=== PATIENT | male | born 1960 | race Caucasian/White ===

== ENCOUNTER 2016-10-04 21:58 | Emergency (ER) | payer BC, MEDICARE ==
[2016-10-04 22:53] VITALS: BP 143/90
[2016-10-04] MEDS ORDERED: Proparacaine 0.5% Ophth Soln 15 ML Bottle EYERT SCH (23:30)
--- NOTE | 2016-10-04 23:39 | EDM.PDOC ---
[id number] SOMEHTING IN EYE Time Seen by Provider: 10/04/16 23:10 Source of Information: Reports: Patient History Limitations: Reports: No Limitations - History of Present Illness INITIAL COMMENTS - FREE TEXT/NARRATIVE: 56-year-old male feels like there is something in his right eye for the last 2 days. He has marked conjunctival erythema and watering of the eye. He was helping pick choke cherries in the trees when he thinks something may have went into his eye. Onset: Gradual (Over the past 2 days) Location: Reports: Other (Right eye) Quality: Reports: Sharp Severity: Moderate Associated Symptoms: Reports: No Other Symptoms Right Eye Pain Score (Numeric/FACES): 6 - Related Data Allergies Allergy/AdvReac Type Severity Reaction Status Date / Time Sulfa (Sulfonamide Allergy Intermediate Swollen Verified 10/04/16 22:52 Antibiotics) Eyes Home Meds: Home Meds Gabapentin 300 mg PO DAILY 11/09/12 [History] Lisinopril 20 mg PO BID 11/09/12 [History] Metoprolol Tartrate 100 mg PO BID 11/09/12 [History] Omeprazole 20 mg PO DAILY 11/09/12 [History] PARoxetine [Paxil] 10 mg PO DAILY 11/09/12 [History] Simvastatin 20 mg PO BEDTIME 11/09/12 [History] Levothyroxine [Synthroid] 50 mcg PO ACBRK 02/22/13 [History] metFORMIN [Glucophage] 1,000 mg PO TIDAC #0 02/25/13 [Rx] Doxazosin [Doxazosin Mesylate] 4 mg PO DAILY 07/26/13 [History] Albuterol [Proventil HFA] 2 inhaler INH Q3H PRN #6.7 gram 11/12/15 [Rx] Hydrochlorothiazide 25 mg PO ASDIRECTED PRN 11/12/15 [History] SUMAtriptan Succinate [Sumatriptan Succinate] 100 mg PO ASDIRECTED PRN 11/12/15 [History] atorvaSTATin [Lipitor] 40 mg PO BEDTIME 11/12/15 [History] glipiZIDE [Glipizide] 5 mg PO DAILY 11/12/15 [History] Fluticasone Propionate [Flovent HFA 110 MCG] 2 puff INH BID PRN 01/02/16 [ History] Past Medical History HEENT History: Reports: Impaired Vision, Sinusitis Cardiovascular History: Reports: CAD, High Cholesterol, Hypertension, [place] Respiratory History: Reports: Asthma, Other (See Below) Other Respiratory History: pneumonia Gastrointestinal History: Reports: Cholelithiasis, GERD, Pancreatitis Musculoskeletal History: Reports: Arthritis, Back Pain, Chronic, Fracture, Other (See Below) Other Musculoskeletal History: Nerve damage to back Neurological History: Reports: CVA, Neuropathy, Diabetic Psychiatric History: Reports: Depression Endocrine/Metabolic History: Reports: Diabetes, Type II, Hypothyroidism - Infectious Disease History Infectious Disease History: Reports: Chicken Pox - Past Surgical History GI Surgical History: Reports: Appendectomy, Cholecystectomy, Colonoscopy, Hernia Repair/Other Male Surgical History: Reports: Circumcision Musculoskeletal Surgical History: Reports: Other (See Below) Social & Family History - Family History Cardiac: Reports: Hypertension : Reports: Renal Disease/Insufficiency Psychiatric: Reports: Depression Endocrine/Metabolic: Reports: Diabetes, type II Oncologic: Reports: Lung, Other (See Below) Other Oncologic Family History: Throat cancer - Tobacco Use Smoking Status *Q: Current Every Day Smoker Years of Tobacco use: 36 Packs/Tins Daily: 0.5 Used Tobacco, but Quit: No Month Tobacco Last Used: 02/15/2013 Second Hand Smoke Exposure: Yes - Caffeine Use Caffeine Use: Reports: Coffee - Alcohol Use Days Per Week of Alcohol Use: 0 - Recreational Drug Use Recreational Drug Use: No Drug Use in Last 12 Months: No ED ROS GENERAL - Review of Systems Review Of Systems: See Below Constitutional: Denies: Fever, Chills HEENT: Reports: Eye Pain Respiratory: Denies: Shortness of Breath Cardiovascular: Denies: Chest Pain GI/Abdominal: Denies: Abdominal Pain, Nausea, Vomiting Skin: Reports: No Symptoms Neurological: Reports: No Symptoms ED EXAM GENERAL W FULL EYE - Physical Exam Exam: See Below Exam Limited By: No Limitations General Appearance: Alert, Mild Distress (Looks fairly uncomfortable) Eye Exam: Right Eye: Conjunctival Injection, PERRL, Other (Watery discharge) Eyelids: Right: Edema, Erythema, Lid Everted for Exam Conjunctiva & Sclera: Right: Conjunctival Edema, Scleral Icterus Cornea Exam: Right: Corneal Ulcer (Very small abrasion or ulceration at 6:00 just under the pupil) Respiratory/Chest: No Respiratory Distress Course - Vital Signs Last Recorded V/S: Last Vital Signs Temp 97.0 F 10/04/16 22:49 Pulse 77 10/04/16 22:49 Resp 18 10/04/16 22:49 BP 143/90 H 10/04/16 22:49 Pulse Ox 95 10/04/16 22:49 - Orders/Labs/Meds Meds: Medications Discontinued Medications Generic Name Dose Route Start Last Admin Trade Name Keisha PRN Reason Stop Dose Admin Gentamicin Sulfate 1 ml 10/05/16 00:00 10/05/16 00:05 Garamycin 0.3% Ophth Soln EYERT 10/05/16 00:01 1 drop ONETIME ONE Administration Proparacaine HCl 1 ml 10/04/16 23:30 Proparacaine 0.5% Ophth Soln EYERT STAT PREET - Re-Assessments/Exams Free Text/Narrative Re-Assessment/Exam: 10/04/16 23:36 After proparacaine anesthesia, the eye was examined with fluorescein staining. There was a small uptake at 6:00 just under the pupil that appeared to be a small abrasion or ulceration. Closer examination under slit lamp exam revealed no foreign body that could be found or other damage to the cornea. Lids were inverted and nothing was found. The patient was placed on gentamicin ophthalmic drops and I strongly encouraged him to recheck tomorrow with optometry as I would've expected to find more abnormal findings with the amount of symptoms he is having. A foreign body still may be present that needs to be removed. Departure - Departure Time of Disposition: 00:09 Disposition: Home, Self-Care 01 Condition: Good Clinical Impression: Corneal abrasion Qualifiers: Encounter type: initial encounter Laterality: right Qualified Code(s): S05.01XA - Injury of conjunctiva and corneal abrasion without foreign body, right eye, initial encounter - Discharge Information Instructions: Corneal Abrasion, [id number] Referrals: PCP,None [Primary Care Provider] - Forms: ED Department Discharge Care Plan Goals: 2 drops 3 times a day of the antibiotic, and recheck with optometry tomorrow if not improving for a formal eye exam.
[2016-10-05] MEDS ORDERED: Gentamicin 0.3% Ophth Soln 5 ML Bottle EYERT ONE
[2016-10-05] MEDS ORDERED: Gentamicin 0.3% Ophth Soln 5 ML Bottle EYERT SCH (09:00)
== END 2016-10-05 00:11 | disposition home or self-care (01) ==
LOC: JP.ED 21:58
DX: S05.01XA Injury of conjunctiva and corneal abrasion without foreign body, right eye, initial encounter (principal); I25.10 Atherosclerotic heart disease of native coronary artery without angina pectoris; I25.2 Old myocardial infarction; I10 Essential (primary) hypertension; E78.00 Pure hypercholesterolemia, unspecified; J45.909 Unspecified asthma, uncomplicated; K21.9 Gastro-esophageal reflux disease without esophagitis; M19.90 Unspecified osteoarthritis, unspecified site; E11.40 Type 2 diabetes mellitus with diabetic neuropathy, unspecified; E03.9 Hypothyroidism, unspecified; F17.210 Nicotine dependence, cigarettes, uncomplicated; Z90.49 Acquired absence of other specified parts of digestive tract; Z98.890 Other specified postprocedural states; Z79.84 Long term (current) use of oral hypoglycemic drugs; Z79.899 Other long term (current) drug therapy; Z88.2 Allergy status to sulfonamides; X58.XXXA Exposure to other specified factors, initial encounter
CPT/HCPCS: 99283; A9270; 65222

== ENCOUNTER 2016-11-12 09:57 | Emergency (ER) | payer BC, MEDICARE ==
[2016-11-12 10:09] VITALS: BP 151/101
--- NOTE | 2016-11-12 10:31 | EDM.PDOC ---
ED HPI GENERAL MEDICAL PROBLEM - General Chief Complaint: Diabetic Complaint Stated Complaint: HIGH BLOOD SUGARS Time Seen by Provider: 11/12/16 10:25 Source of Information: Reports: Patient History Limitations: Reports: No Limitations - History of Present Illness INITIAL COMMENTS - FREE TEXT/NARRATIVE: 56-year-old male is in the emergency room because his blood glucose levels have been over 200 for the past 2-3 days. He is on Januvia, metformin, and glipizide extended release and his blood glucose levels usually are in the mid 100 range. He has a cold, just finished a course of Zithromax 2 days ago. No fevers or chills. He is upset that he did not improve on the antibiotic. He is wondering if he needs insulin. No nausea or vomiting. Onset: Unknown/Unsure (At least 2-3 days of elevated blood glucose levels) Severity: Mild - Related Data Allergies Allergy/AdvReac Type Severity Reaction Status Date / Time Sulfa (Sulfonamide Allergy Intermediate Swollen Verified 11/12/16 10:09 Antibiotics) Eyes amoxicillin Allergy Fever Verified 11/12/16 10:09 Home Meds: Home Meds . [Unable to Verify Home Med List] 11/12/16 [History] Past Medical History HEENT History: Reports: Impaired Vision, Sinusitis Cardiovascular History: Reports: CAD, High Cholesterol, Hypertension, [place] Respiratory History: Reports: Asthma, Other (See Below) Other Respiratory History: pneumonia Gastrointestinal History: Reports: Cholelithiasis, GERD, Pancreatitis Musculoskeletal History: Reports: Arthritis, Back Pain, Chronic, Fracture, Other (See Below) Other Musculoskeletal History: Nerve damage to back Neurological History: Reports: CVA, Neuropathy, Diabetic Psychiatric History: Reports: Depression Endocrine/Metabolic History: Reports: Diabetes, Type II, Hypothyroidism - Infectious Disease History Infectious Disease History: Reports: Chicken Pox - Past Surgical History GI Surgical History: Reports: Appendectomy, Cholecystectomy, Colonoscopy, Hernia Repair/Other Male Surgical History: Reports: Circumcision Musculoskeletal Surgical History: Reports: Other (See Below) Social & Family History - Family History Cardiac: Reports: Hypertension : Reports: Renal Disease/Insufficiency Psychiatric: Reports: Depression Endocrine/Metabolic: Reports: Diabetes, type II Oncologic: Reports: Lung, Other (See Below) Other Oncologic Family History: Throat cancer - Tobacco Use Smoking Status *Q: Unknown Ever Smoked Years of Tobacco use: 36 Packs/Tins Daily: 0.5 Used Tobacco, but Quit: No Month Tobacco Last Used: 02/15/2013 Second Hand Smoke Exposure: Yes - Caffeine Use Caffeine Use: Reports: Coffee - Alcohol Use Days Per Week of Alcohol Use: 0 - Recreational Drug Use Recreational Drug Use: No Drug Use in Last 12 Months: No ED ROS GENERAL - Review of Systems Review Of Systems: See Below Constitutional: Reports: Fever (Had a fever for 1-2 days a week ago, that resolved) HEENT: Reports: Rhinitis. Denies: Throat Pain Respiratory: Reports: Shortness of Breath, Wheezing, Cough Cardiovascular: Denies: Chest Pain GI/Abdominal: Denies: Abdominal Pain, Nausea, Vomiting Skin: Denies: Rash Neurological: Denies: Headache Psychiatric: Reports: No Symptoms ED EXAM GENERAL NO PERIP PULSE - Physical Exam Exam: See Below Exam Limited By: No Limitations General Appearance: Alert, No Apparent Distress Throat/Mouth: Normal Inspection Head: Atraumatic Respiratory/Chest: No Respiratory Distress, Wheezing (Diffuse expiratory wheezes are heard) Cardiovascular: Regular Rate, Rhythm Neurological: Alert, Oriented Psychiatric: Normal Affect, Normal Mood Skin Exam: Warm, Dry Course - Vital Signs Last Recorded V/S: Last Vital Signs Temp 98.4 F 11/12/16 10:06 Pulse 107 H 11/12/16 10:06 Resp 15 11/12/16 10:06 BP 151/101 H 11/12/16 10:06 Pulse Ox 96 11/12/16 10:06 - Re-Assessments/Exams Free Text/Narrative Re-Assessment/Exam: 11/12/16 10:42 Reviewed the patient's medications, he is on 3 oral hypoglycemic medications. He is only taking one dose of metformin daily, I told him he can increase to 2 doses until his cold symptoms resolve and his blood sugars improve. I explained that his cold is likely viral and is the reason the Zithromax didn't work. I did give him a prescription for a new albuterol HFA inhaler. I asked him to call his regular physician early next week if his blood glucose levels aren't improving. Departure - Departure Time of Disposition: 10:55 Disposition: Home, Self-Care 01 Condition: Good Clinical Impression: Acute viral bronchitis, Hyperglycemia - Discharge Information Instructions: Acute Bronchitis Referrals: PCP,None [Primary Care Provider] - Forms: ED Department Discharge Care Plan Goals: Continue your regular medications but consider adding a second dose of metformin in the evening. Contact your regular provider early next week if her blood sugars have not improved. Use inhaler and cough suppressants as prescribed.
== END 2016-11-12 10:56 | disposition home or self-care (01) ==
LOC: JP.ED 09:57
DX: E11.65 Type 2 diabetes mellitus with hyperglycemia (principal); E11.40 Type 2 diabetes mellitus with diabetic neuropathy, unspecified; J20.8 Acute bronchitis due to other specified organisms; I25.10 Atherosclerotic heart disease of native coronary artery without angina pectoris; E78.00 Pure hypercholesterolemia, unspecified; I10 Essential (primary) hypertension; I25.2 Old myocardial infarction; J45.909 Unspecified asthma, uncomplicated; K21.9 Gastro-esophageal reflux disease without esophagitis; M19.90 Unspecified osteoarthritis, unspecified site; E03.9 Hypothyroidism, unspecified; Z86.73 Personal history of transient ischemic attack (TIA), and cerebral infarction without residual deficits; Z90.49 Acquired absence of other specified parts of digestive tract; Z98.890 Other specified postprocedural states; Z88.2 Allergy status to sulfonamides; Z88.1 Allergy status to other antibiotic agents
CPT/HCPCS: 99283

== ENCOUNTER 2017-04-21 19:50 | Emergency (ER) | payer BC, MEDICARE ==
[2017-04-21 20:44] VITALS: BP 145/94
[2017-04-21] MEDS ORDERED: Insulin Regular, Human 100 Units/ML 10 ML Vial SUBCUT ONE (21:10)
--- NOTE | 2017-04-21 21:51 | EDM.PDOC ---
ED HPI GENERAL MEDICAL PROBLEM - General Chief Complaint: Diabetic Complaint Stated Complaint: HIGH BLOOD SUGARS Time Seen by Provider: 04/21/17 20:10 Source of Information: Reports: Patient, Family () - History of Present Illness INITIAL COMMENTS - FREE TEXT/NARRATIVE: Hyperglycemia: This is a 57-year-old Mastisol presents emergency room with his and young son, reports started on insulin today by his primary care provider. He took 5 units this evening. He reports blood sugars of 361, 356, 364. He feels fatigued, blurry vision, mood changes. He denies chest pain, shortness of breath, fever, chills. He is here to be sure that his home glucose monitoring meter is working correctly. - Related Data Allergies Allergy/AdvReac Type Severity Reaction Status Date / Time Sulfa (Sulfonamide Allergy Intermediate Swollen Verified 04/21/17 20:30 Antibiotics) Eyes amoxicillin Allergy Fever Verified 04/21/17 20:30 Home Meds: Home Meds Albuterol [Ventolin HFA] 2 puff INH BID PRN 04/21/17 [History] Ciprofloxacin HCl [Cipro] 500 mg PO BID 04/21/17 [History] Cyclobenzaprine HCl [Cyclobenzaprine HCl] 5 mg PO TID PRN 04/21/17 [History] Fluticasone/Vilanterol [Breo Ellipta 100-25 MCG Inhalation Kit] 04/21/17 [ History] Insulin Isophane NPH, Human [NovoLIN N] 5 unit SUBCUT DAILY 04/21/17 [History] Levothyroxine [Synthroid] 50 mcg PO ACBREAKFAST 04/21/17 [History] Lisinopril [Lisinopril] 1 tab PO DAILY 04/21/17 [History] Metoprolol Succinate [Metoprolol Succinate] 1 tab PO DAILY 04/21/17 [History] Montelukast Sodium [Montelukast Sodium] 1 tab PO DAILY PRN 04/21/17 [History] Nortriptyline [Nortriptyline] 1 tab PO DAILY 04/21/17 [History] Omeprazole [Omeprazole] 1 tab PO DAILY 04/21/17 [History] Potassium Chloride [Potassium Chloride] 1 tab PO DAILY 04/21/17 [History] amLODIPine Besylate [Amlodipine Besylate] 1 tab PO DAILY 04/21/17 [History] atorvaSTATin Calcium [Atorvastatin Calcium] 1 tab PO BEDTIME 04/21/17 [History] metFORMIN HCl [Metformin HCl] 1,000 mg PO DAILY 04/21/17 [History] Past Medical History HEENT History: Reports: Impaired Vision, Sinusitis Cardiovascular History: Reports: CAD, High Cholesterol, Hypertension, [place] Respiratory History: Reports: Asthma, Other (See Below) Other Respiratory History: pneumonia Gastrointestinal History: Reports: Cholelithiasis, GERD, Pancreatitis Musculoskeletal History: Reports: Arthritis, Back Pain, Chronic, Fracture, Other (See Below) Other Musculoskeletal History: Nerve damage to back Neurological History: Reports: CVA, Neuropathy, Diabetic Psychiatric History: Reports: Depression Endocrine/Metabolic History: Reports: Diabetes, Type II, Hypothyroidism - Infectious Disease History Infectious Disease History: Reports: Chicken Pox - Past Surgical History GI Surgical History: Reports: Appendectomy, Cholecystectomy, Colonoscopy, Hernia Repair/Other Male Surgical History: Reports: Circumcision Musculoskeletal Surgical History: Reports: Other (See Below) Social & Family History - Family History Cardiac: Reports: Hypertension : Reports: Renal Disease/Insufficiency Psychiatric: Reports: Depression Endocrine/Metabolic: Reports: Diabetes, type II Oncologic: Reports: Lung, Other (See Below) Other Oncologic Family History: Throat cancer - Tobacco Use Smoking Status *Q: Current Every Day Smoker Years of Tobacco use: 35 Packs/Tins Daily: 0.7 Used Tobacco, but Quit: No Month Tobacco Last Used: 02/15/2013 Second Hand Smoke Exposure: Yes - Caffeine Use Caffeine Use: Reports: Coffee, Soda - Alcohol Use Days Per Week of Alcohol Use: 0 - Recreational Drug Use Recreational Drug Use: No Drug Use in Last 12 Months: No ED ROS GENERAL - Review of Systems Review Of Systems: See Below Constitutional: Reports: Malaise, Fatigue HEENT: Reports: Vision Change (Blurry vision with high glucose readings.) Respiratory: Reports: No Symptoms Cardiovascular: Reports: No Symptoms Endocrine: Reports: Fatigue, High Glucose GI/Abdominal: Reports: No Symptoms : Reports: No Symptoms Musculoskeletal: Reports: No Symptoms Skin: Reports: No Symptoms Neurological: Reports: No Symptoms Psychiatric: Reports: No Symptoms Hematologic/Lymphatic: Reports: No Symptoms Immunologic: Reports: No Symptoms ED EXAM GENERAL NO PERIP PULSE - Physical Exam Exam: See Below Exam Limited By: No Limitations General Appearance: Alert, WD/WN, No Apparent Distress Eye Exam: Bilateral Eye: EOMI, Normal Inspection, PERRL Ears: Normal External Exam, Normal Canal, Hearing Grossly Normal, Normal TMs Nose: Normal Inspection, Normal Mucosa, No Blood Throat/Mouth: Normal Inspection Head: Atraumatic, Normocephalic Neck: Normal Inspection, Supple, Non-Tender, Full Range of Motion Respiratory/Chest: No Respiratory Distress, Lungs Clear, Normal Breath Sounds, No Accessory Muscle Use, Chest Non-Tender Cardiovascular: Normal Peripheral Pulses, Regular Rate, Rhythm, No Edema, No Murmur, No Rub GI/Abdominal: Normal Bowel Sounds, Other (Large obese abdomen noted, nontender) (Male) Exam: Deferred Rectal (Males) Exam: Deferred Back Exam: Normal Inspection, Full Range of Motion Extremities: Normal Range of Motion, Non-Tender, No Pedal Edema, Normal Capillary Refill, Other (1 mm circular ulcer noted proximal to the left knee. Scant discharge noted mild erythema surrounding ulcer. Nontender) Neurological: Alert, Oriented, Normal Cognition, Normal Gait, Normal Reflexes, No Motor/Sensory Deficits Psychiatric: Normal Affect, Normal Mood Skin Exam: Warm, Dry, Other (Tiny 1 mm circular skin ulcer noted to the left lower leg.) Lymphatic: No Adenopathy Course - Vital Signs Last Recorded V/S: Last Vital Signs Temp 36.5 C 04/21/17 20:40 Pulse 77 04/21/17 20:40 Resp 18 04/21/17 20:44 BP 145/94 H 04/21/17 20:44 Pulse Ox 96 04/21/17 20:44 - Orders/Labs/Meds Orders: Active Orders 24 hr Category Date Time Status Blood Glucose Check, Bedside [RC] ONETIME Care 04/21/17 20:08 Active Labs: Laboratory Tests 04/21/17 04/21/17 Range/Units 20:10 20:10 WBC 19.3 H (4.5-11.0) K/uL RBC 5.09 (4.30-5.90) M/uL Hgb 16.3 H (12.0-15.0) g/dL Hct 46.3 (40.0-54.0) % MCV 91 (80-98) fL MCH 32 H (27-31) pg MCHC 35 (32-36) % Plt Count 269 (150-400) K/uL Neut % (Auto) 75 H (36-66) % Lymph % (Auto) 15 L (24-44) % Nance % (Auto) 9 H (2-6) % Eos % (Auto) 0 L (2-4) % Baso % (Auto) 0 (0-1) % Sodium 136 L (140-148) mmol/L Potassium 4.2 (3.6-5.2) mmol/L Chloride 99 L (100-108) mmol/L Carbon Dioxide 25 (21-32) mmol/L Anion Gap 16.2 H (5.0-14.0) mmol/L BUN 16 (7-18) mg/dL Creatinine 1.3 (0.8-1.3) mg/dL Est Cr Clr Drug Dosing 67.58 mL/min Estimated GFR (MDRD) 57 L (>60) Glucose 366 H (74-106) mg/dL Calcium 8.3 L (8.5-10.1) mg/dL Total Bilirubin 0.3 (0.2-1.0) mg/dL AST 13 L (15-37) U/L ALT 22 (12-78) U/L Alkaline Phosphatase 141 H (46-116) U/L Total Protein 7.3 (6.4-8.2) g/dL Albumin 3.8 (3.4-5.0) g/dL Globulin 3.5 (2.3-3.5) g/dL Albumin/Globulin Ratio 1.1 L (1.2-2.2) Meds: Medications Discontinued Medications Generic Name Dose Route Start Last Admin Trade Name Keisha PRN Reason Stop Dose Admin Insulin Human Regular 10 unit 04/21/17 21:10 04/21/17 21:55 Novolin R SUBCUT 04/21/17 21:11 10 unit ONETIME ONE Administration Protocol - Re-Assessments/Exams Free Text/Narrative Re-Assessment/Exam: 04/21/17 22:02 Labs were noted to have blood sugar 366, will give insulin regular 10 units subcut now. CBC does show elevated white count with no source of infection. Chemistries abnormal reports see full lab results Discussed IV fluids patient declines, he would like his lab reports and would like to follow-up with his primary care tomorrow Discussed increasing her long-acting insulin from 5 units to 10 units at bedtime Advised to follow-up with primary care with a phone call in morning to discuss further insulin management Departure - Departure Time of Disposition: 22:04 Disposition: Home, Self-Care 01 Condition: Good Clinical Impression: Hyperglycemia - Discharge Information Instructions: Hyperglycemia, [id number] Referrals: Kelly Reddy ORGANIZATIONAL PSYCHOLOGIST [Primary Care Provider] - Forms: ED Department Discharge Care Plan Goals: Hyperglycemia -Advised to increase long-acting insulin from 5 units to 10 units subcut at bedtime -Advised to monitor blood sugar in the morning and call primary care provider with results Advised to return to clinic, Urgent care, or ER; if has any increased blood glucose, blurry vision, nausea, vomiting, diarrhea, chest pain, or any concerns. and Mrs. Small agree with plan of care. - Problem List & Annotations (1) Hyperglycemia SNOMED Code(s): 25308005 Code(s): R73.9 - HYPERGLYCEMIA, UNSPECIFIED Status: Acute Priority: Medium Current Visit: Yes - Problem List Review Problem List Initiated/Reviewed/Updated: Yes - My Orders Last 24 Hours: My Active Orders 04/21/17 20:08 Blood Glucose Check, Bedside [RC] ONETIME - Assessment/Plan Last 24 Hours: My Active Orders 04/21/17 20:08 Blood Glucose Check, Bedside [RC] ONETIME Plan: Hyperglycemia -Given short acting regular insulin 10 units subcut in emergency room. -Given a copy of lab reports and reviewed with patient and his . -Advised to increase long-acting insulin from 5 units to 10 units subcut at bedtime -Advised to monitor blood sugar in the morning and call primary care provider with results Advised to return to clinic, Urgent care, or ER; if has any increased blood glucose, blurry vision, nausea, vomiting, diarrhea, chest pain, or any concerns. and Mrs. Small agree with plan of care.
== END 2017-04-21 21:58 | disposition home or self-care (01) ==
LOC: JP.ED 19:50
DX: E11.65 Type 2 diabetes mellitus with hyperglycemia (principal); I10 Essential (primary) hypertension; E11.40 Type 2 diabetes mellitus with diabetic neuropathy, unspecified; E03.9 Hypothyroidism, unspecified; F17.210 Nicotine dependence, cigarettes, uncomplicated; E78.00 Pure hypercholesterolemia, unspecified; Z88.2 Allergy status to sulfonamides; Z88.1 Allergy status to other antibiotic agents; Z79.899 Other long term (current) drug therapy; Z79.4 Long term (current) use of insulin; Z79.84 Long term (current) use of oral hypoglycemic drugs
CPT/HCPCS: 36415; 80053; 85025; 96372; 99284; A9270

== ENCOUNTER 2017-04-25 20:03 | Emergency (ER) | payer BC, MEDICARE ==
[2017-04-25 20:31] VITALS: BP 143/94
[2017-04-25] MEDS ORDERED: Sodium Chloride 0.9% 10 ML Syringe FLUSH PRN (20:55)
--- NOTE | 2017-04-25 20:58 | EDM.PDOC ---
ED HPI GENERAL MEDICAL PROBLEM - General Chief Complaint: Diabetic Complaint Stated Complaint: HIGH BLOOD SUGAR Time Seen by Provider: 04/25/17 20:50 Source of Information: Reports: Patient, Old Records, RN Notes Reviewed History Limitations: Reports: No Limitations - History of Present Illness INITIAL COMMENTS - FREE TEXT/NARRATIVE: 57-year-old gentleman presents emergency department day complaint of elevated blood sugars, he states the current medications that he is using do not bring his blood sugars down and he is also using chromium as well complains of epigastric pain Left Upper Abdomen Pain Score (Numeric/FACES): 4 - Related Data Allergies Allergy/AdvReac Type Severity Reaction Status Date / Time Sulfa (Sulfonamide Allergy Intermediate Swollen Verified 04/25/17 20:48 Antibiotics) Eyes amoxicillin Allergy Fever Verified 04/25/17 20:48 Home Meds: Home Meds Albuterol [Ventolin HFA] 2 puff INH BID PRN 04/21/17 [History] Cyclobenzaprine HCl [Cyclobenzaprine HCl] 5 mg PO TID PRN 04/21/17 [History] Insulin Isophane NPH, Human [NovoLIN N] 5 unit SUBCUT DAILY 04/21/17 [History] Levothyroxine [Synthroid] 50 mcg PO ACBREAKFAST 04/21/17 [History] Lisinopril [Lisinopril] 40 mg PO DAILY 04/21/17 [History] Metoprolol Succinate [Metoprolol Succinate] 200 mg PO DAILY 04/21/17 [History] Omeprazole [Omeprazole] 20 mg PO DAILY 04/21/17 [History] Potassium Chloride [Potassium Chloride] 10 meq PO DAILY 04/21/17 [History] amLODIPine Besylate [Amlodipine Besylate] 10 mg PO DAILY 04/21/17 [History] atorvaSTATin Calcium [Atorvastatin Calcium] 40 mg PO BEDTIME 04/21/17 [History] metFORMIN HCl [Metformin HCl] 1,000 mg PO DAILY 04/21/17 [History] Past Medical History HEENT History: Reports: Impaired Vision, Sinusitis Cardiovascular History: Reports: CAD, High Cholesterol, Hypertension, [place] Respiratory History: Reports: Asthma, Other (See Below) Other Respiratory History: pneumonia Gastrointestinal History: Reports: Cholelithiasis, GERD, Pancreatitis Musculoskeletal History: Reports: Arthritis, Back Pain, Chronic, Fracture, Other (See Below) Other Musculoskeletal History: Nerve damage to back Neurological History: Reports: CVA, Neuropathy, Diabetic Psychiatric History: Reports: Depression Endocrine/Metabolic History: Reports: Diabetes, Type II, Hypothyroidism - Infectious Disease History Infectious Disease History: Reports: Chicken Pox - Past Surgical History GI Surgical History: Reports: Appendectomy, Cholecystectomy, Colonoscopy, Hernia Repair/Other Male Surgical History: Reports: Circumcision Musculoskeletal Surgical History: Reports: Other (See Below) Social & Family History - Family History Cardiac: Reports: Hypertension : Reports: Renal Disease/Insufficiency Psychiatric: Reports: Depression Endocrine/Metabolic: Reports: Diabetes, type II Oncologic: Reports: Lung, Other (See Below) Other Oncologic Family History: Throat cancer - Tobacco Use Smoking Status *Q: Current Every Day Smoker Years of Tobacco use: 35 Packs/Tins Daily: 0.7 Used Tobacco, but Quit: No Month Tobacco Last Used: 02/15/2013 Second Hand Smoke Exposure: Yes - Caffeine Use Caffeine Use: Reports: Coffee, Soda - Alcohol Use Days Per Week of Alcohol Use: 0 - Recreational Drug Use Recreational Drug Use: No Drug Use in Last 12 Months: No ED ROS GENERAL - Review of Systems Review Of Systems: See Below Constitutional: Reports: No Symptoms Respiratory: Reports: No Symptoms Cardiovascular: Reports: No Symptoms Endocrine: Reports: High Glucose GI/Abdominal: Reports: Abdominal Pain. Denies: Nausea, Vomiting ED EXAM GENERAL NO PERIP PULSE - Physical Exam Exam: See Below Exam Limited By: No Limitations General Appearance: Alert, WD/WN, No Apparent Distress Respiratory/Chest: No Respiratory Distress, Lungs Clear, Normal Breath Sounds, No Accessory Muscle Use, Chest Non-Tender Cardiovascular: Regular Rate, Rhythm, No Murmur GI/Abdominal: Soft, Non-Tender Course - Vital Signs Last Recorded V/S: Last Vital Signs Temp 97.2 F 04/25/17 20:53 Pulse 90 04/25/17 20:53 Resp 17 04/25/17 20:53 BP 143/94 H 04/25/17 20:53 Pulse Ox 93 L 04/25/17 20:53 - Orders/Labs/Meds Orders: Active Orders 24 hr Category Date Time Status Peripheral IV Care [RC] . DIRECTED Care 04/25/17 20:55 Active Sodium Chloride 0.9% [Saline Flush] Med 04/25/17 20:55 Active 10 ml FLUSH ASDIRECTED PRN Peripheral IV Insertion Adult [OM.PC] Urgent Oth 04/25/17 20:55 Ordered Medication Orders Sodium Chloride (Saline Flush) 10 ml FLUSH ASDIRECTED PRN PRN Reason: Keep Vein Open Labs: Laboratory Tests 04/25/17 04/25/17 04/25/17 Range/Units 21:02 21:07 21:07 WBC 16.1 H (4.5-11.0) K/uL RBC 5.55 (4.30-5.90) M/uL Hgb 17.5 H (12.0-15.0) g/dL Hct 50.0 (40.0-54.0) % MCV 90 (80-98) fL MCH 32 H (27-31) pg MCHC 35 (32-36) % Plt Count 237 (150-400) K/uL Add Manual Diff Yes Neutrophils % (Manual) 70 H (36-66) % Band Neutrophils % 3 L (5-11) % Lymphocytes % (Manual) 23 L (24-44) % Monocytes % (Manual) 3 (2-6) % Eosinophils % (Manual) 1 L (2-4) % Sodium 136 L (140-148) mmol/L Potassium 4.0 (3.6-5.2) mmol/L Chloride 101 (100-108) mmol/L Carbon Dioxide 26 (21-32) mmol/L Anion Gap 13.0 (5.0-14.0) mmol/L BUN 20 H (7-18) mg/dL Creatinine 1.5 H (0.8-1.3) mg/dL Est Cr Clr Drug Dosing 58.57 mL/min Estimated GFR (MDRD) 48 L (>60) Glucose 219 H (74-106) mg/dL Lactic Acid (0.4-2.0) mmol/L Calcium 8.8 (8.5-10.1) mg/dL Total Bilirubin 0.5 D (0.2-1.0) mg/dL AST 17 (15-37) U/L ALT 31 (12-78) U/L Alkaline Phosphatase 123 H (46-116) U/L Troponin I (0.000-0.056) ng/mL Total Protein 7.6 (6.4-8.2) g/dL Albumin 3.9 (3.4-5.0) g/dL Globulin 3.7 H (2.3-3.5) g/dL Albumin/Globulin Ratio 1.1 L (1.2-2.2) Lipase (73-393) U/L Urine Color Yellow Urine Appearance Clear Urine pH 5.0 (4.5-8.0) Ur Specific [place] 1.005 L (1.008-1.030) Urine Protein Negative (NEGATIVE) mg/dL Urine Glucose (UA) Normal (NEGATIVE) mg/dL Urine Ketones Negative (NEGATIVE) mg/dL Urine Occult Blood Negative (NEGATIVE) Urine Nitrite Negative (NEGAITVE) Urine Bilirubin Negative (NEGATIVE) Urine Urobilinogen Normal (NORMAL) mg/dL Ur Leukocyte Esterase Negative (NEGATIVE) Urine RBC Not seen (0-5) Urine WBC Not seen (0-5) Ur Epithelial Cells Not seen Amorphous Sediment Not seen Urine Bacteria Not seen Urine Mucus Not seen 04/25/17 04/25/17 04/25/17 Range/Units 21:07 21:07 21:07 WBC (4.5-11.0) K/uL RBC (4.30-5.90) M/uL Hgb (12.0-15.0) g/dL Hct (40.0-54.0) % MCV (80-98) fL MCH (27-31) pg MCHC (32-36) % Plt Count (150-400) K/uL Add Manual Diff Neutrophils % (Manual) (36-66) % Band Neutrophils % (5-11) % Lymphocytes % (Manual) (24-44) % Monocytes % (Manual) (2-6) % Eosinophils % (Manual) (2-4) % Sodium (140-148) mmol/L Potassium (3.6-5.2) mmol/L Chloride (100-108) mmol/L Carbon Dioxide (21-32) mmol/L Anion Gap (5.0-14.0) mmol/L BUN (7-18) mg/dL Creatinine (0.8-1.3) mg/dL Est Cr Clr Drug Dosing mL/min Estimated GFR (MDRD) (>60) Glucose (74-106) mg/dL Lactic Acid 0.8 (0.4-2.0) mmol/L Calcium (8.5-10.1) mg/dL Total Bilirubin (0.2-1.0) mg/dL AST (15-37) U/L ALT (12-78) U/L Alkaline Phosphatase (46-116) U/L Troponin I < 0.017 (0.000-0.056) ng/mL Total Protein (6.4-8.2) g/dL Albumin (3.4-5.0) g/dL Globulin (2.3-3.5) g/dL Albumin/Globulin Ratio (1.2-2.2) Lipase 281 (73-393) U/L Urine Color Urine Appearance Urine pH (4.5-8.0) Ur Specific [place] (1.008-1.030) Urine Protein (NEGATIVE) mg/dL Urine Glucose (UA) (NEGATIVE) mg/dL Urine Ketones (NEGATIVE) mg/dL Urine Occult Blood (NEGATIVE) Urine Nitrite (NEGAITVE) Urine Bilirubin (NEGATIVE) Urine Urobilinogen (NORMAL) mg/dL Ur Leukocyte Esterase (NEGATIVE) Urine RBC (0-5) Urine WBC (0-5) Ur Epithelial Cells Amorphous Sediment Urine Bacteria Urine Mucus Meds: Medications Generic Name Dose Route Start Last Admin Trade Name Freq PRN Reason Stop Dose Admin Sodium Chloride 10 ml 04/25/17 20:55 Saline Flush FLUSH ASDIRECTED PRN Keep Vein Open Departure - Departure Time of Disposition: 22:33 Disposition: Home, Self-Care 01 Condition: Fair Clinical Impression: Diabetes mellitus type 2 - Discharge Information Referrals: Kelly Reddy [facility] HELPER [Primary Care Provider] - Forms: ED Department Discharge Additional Instructions: Recommend change your ratio to add a bit more insulin to your carb count, recommend starting a long-acting insulin, please contact your primary care provider on Wednesday for further follow-up - My Orders Last 24 Hours: My Active Orders 04/25/17 20:55 Peripheral IV Care [RC] . DIRECTED Sodium Chloride 0.9% [Saline Flush] 10 ml FLUSH ASDIRECTED PRN Peripheral IV Insertion Adult [OM.PC] Urgent - Assessment/Plan Last 24 Hours: My Active Orders 04/25/17 20:55 Peripheral IV Care [RC] . DIRECTED Sodium Chloride 0.9% [Saline Flush] 10 ml FLUSH ASDIRECTED PRN Peripheral IV Insertion Adult [OM.PC] Urgent Plan: Assessment Acuity = acute Site and laterality = diabetes mellitus type II poorly controlled Etiology = inadequate insulin Manifestations = hyperglycemia Location of injury = Home Lab values = WBC elevated 16.1 consistent leukocytosis, creatinine elevated at 1.5 consistent with chronic renal failure stage GIII a glucose elevated at 219 consistent with hyperglycemia troponin is negative, lipase normal 281 urinalysis unremarkable Plan I did review lab work with him as well as recommendations he states is carb counting I recommended he change his ratio to increase the insulin per carb also recommended a long acting insulin he is going to call his primary care in the morning for follow-up visit this week also recommended follow-up with diabetic education This note was dictated using [employer] voice recognition software please call with any questions on syntax or mary.
== END 2017-04-25 22:50 | disposition home or self-care (01) ==
LOC: JP.ED 20:03
DX: E11.65 Type 2 diabetes mellitus with hyperglycemia (principal); E11.40 Type 2 diabetes mellitus with diabetic neuropathy, unspecified; F17.210 Nicotine dependence, cigarettes, uncomplicated; K21.9 Gastro-esophageal reflux disease without esophagitis; I10 Essential (primary) hypertension; I25.2 Old myocardial infarction; I25.10 Atherosclerotic heart disease of native coronary artery without angina pectoris; F32.9 Major depressive disorder, single episode, unspecified; E03.9 Hypothyroidism, unspecified; Z88.2 Allergy status to sulfonamides; Z88.1 Allergy status to other antibiotic agents; Z79.4 Long term (current) use of insulin; Z79.899 Other long term (current) drug therapy
CPT/HCPCS: 36415; 80053; 81001; 83605; 83690; 84484; 85025; 99283; 99285

== ENCOUNTER 2017-10-11 05:03 | Emergency (ER) | payer MEDICARE, BC ==
[2017-10-11] MEDS ORDERED: Ondansetron 4 MG Tab.DIS PO ONE (05:46)
[2017-10-11] MEDS ORDERED: Ketorolac 60 MG/2 ML SDV IM ONE (05:46)
--- NOTE | 2017-10-11 05:51 | EDM.PDOC ---
<OfficerNoe - Last Filed: 10/11/17 05:47> ED HPI GENERAL MEDICAL PROBLEM - General Chief Complaint: Skin Complaint Stated Complaint: cyst on genitals Time Seen by Provider: 10/11/17 05:33 Source of Information: Reports: Patient, Old Records, RN Notes Reviewed History Limitations: Reports: No Limitations - History of Present Illness INITIAL COMMENTS - FREE TEXT/NARRATIVE: 57-year-old gentleman presents to the emergency department today with complaint of painful testicle. He has had an abscess on his testicle within the last year which required surgical drainage. Also known history of diabetes mellitus type 2. He states this particular event has been developing over the last couple days this morning he noticed that it was larger more painful he is not had any drainage denies any fevers he did feel nauseated this morning right testicle Pain Score (Numeric/FACES): 5 - Related Data Allergies Allergy/AdvReac Type Severity Reaction Status Date / Time Sulfa (Sulfonamide Allergy Intermediate Swollen Verified 10/11/17 05:16 Antibiotics) Eyes amoxicillin Allergy Fever Verified 10/11/17 05:16 Home Meds: Home Meds Albuterol [Ventolin HFA] 2 puff INH BID PRN 04/21/17 [History] Cyclobenzaprine HCl 5 mg PO TID PRN 04/21/17 [History] Insulin Isophane NPH, Human [NovoLIN N] 10 unit SUBCUT TID 04/21/17 [History] Levothyroxine [Synthroid] 75 mcg PO ACBREAKFAST 04/21/17 [History] Lisinopril 40 mg PO DAILY 04/21/17 [History] Metoprolol Succinate 200 mg PO DAILY 04/21/17 [History] Omeprazole 20 mg PO DAILY 04/21/17 [History] Potassium Chloride 10 meq PO DAILY 04/21/17 [History] amLODIPine Besylate [Amlodipine Besylate] 10 mg PO DAILY 04/21/17 [History] atorvaSTATin Calcium [Atorvastatin Calcium] 40 mg PO BEDTIME 04/21/17 [History] metFORMIN HCl [Metformin HCl] 1,000 mg PO DAILY 04/21/17 [History] cephALEXin [Cephalexin] 500 mg PO QID #30 capsule 10/11/17 [Rx] Past Medical History HEENT History: Reports: Impaired Vision, Sinusitis Cardiovascular History: Reports: CAD, High Cholesterol, Hypertension, [place] Respiratory History: Reports: Asthma, Other (See Below) Other Respiratory History: pneumonia Gastrointestinal History: Reports: Cholelithiasis, GERD, Pancreatitis Musculoskeletal History: Reports: Arthritis, Back Pain, Chronic, Fracture, Other (See Below) Other Musculoskeletal History: Nerve damage to back Neurological History: Reports: CVA, Neuropathy, Diabetic Psychiatric History: Reports: Depression Endocrine/Metabolic History: Reports: Diabetes, Type II, Hypothyroidism - Infectious Disease History Infectious Disease History: Reports: Chicken Pox - Past Surgical History GI Surgical History: Reports: Appendectomy, Cholecystectomy, Colonoscopy, Hernia Repair/Other Male Surgical History: Reports: Circumcision, Other (See Below) Other Male Surgeries/Procedures: lanced cyst on left testicle 2016 Musculoskeletal Surgical History: Reports: Other (See Below) Social & Family History - Family History Cardiac: Reports: Hypertension : Reports: Renal Disease/Insufficiency Psychiatric: Reports: Depression Endocrine/Metabolic: Reports: Diabetes, type II Oncologic: Reports: Lung, Other (See Below) Other Oncologic Family History: Throat cancer - Tobacco Use Smoking Status *Q: Current Every Day Smoker Years of Tobacco use: 45 Packs/Tins Daily: 0.5 - Caffeine Use Caffeine Use: Reports: Coffee - Recreational Drug Use Recreational Drug Use: No ED ROS GENERAL - Review of Systems Review Of Systems: See Below Constitutional: Reports: No Symptoms HEENT: Reports: No Symptoms Respiratory: Reports: No Symptoms Cardiovascular: Reports: No Symptoms Endocrine: Denies: High Glucose GI/Abdominal: Reports: No Symptoms : Reports: Other (Painful right testicle) Musculoskeletal: Reports: No Symptoms Skin: Reports: Pallor, Rash, Erythema Neurological: Reports: No Symptoms ED EXAM, SKIN/RASH Exam: See Below Text/Narrative:: Examination of the genitalia reveal uncircumcised male he does have what appears to be an abscess an area about the size of a golf ball it is tender to the touch firm to the touch on the right scrotal area no drainage is present, warm to the touch Exam Limited By: No Limitations General Appearance: Alert, WD/WN, No Apparent Distress Respiratory/Chest: No Respiratory Distress, Lungs Clear, Normal Breath Sounds, No Accessory Muscle Use Cardiovascular: Regular Rate, Rhythm, No Murmur Course - Vital Signs Last Recorded V/S: Last Vital Signs Temp 36.7 C 10/11/17 06:43 Pulse 73 10/11/17 06:43 Resp 18 10/11/17 06:43 BP 153/97 H 10/11/17 06:43 Pulse Ox 99 10/11/17 06:43 - Orders/Labs/Meds Orders: Active Orders 24 hr Category Date Time Status Vital Signs [RC] Q1H Care 10/11/17 05:45 Active Scrotum and Contents [US] Stat Exams 10/11/17 05:45 Taken UA W/MICROSCOPIC [URIN] Urgent Lab 10/11/17 06:54 Ordered Sodium Chloride 0.9% [Saline Flush] Med 10/11/17 07:24 Active 10 ml FLUSH ASDIRECTED PRN cefTRIAXone [Rocephin] 2 gm Med 10/11/17 07:24 Active Sodium Chloride 0.9% [Normal Saline] 50 ml IV ONETIME Saline Lock Insert [OM.PC] Routine Oth 10/11/17 07:24 Ordered Medication Orders Ceftriaxone Sodium 2 gm/ (Sodium Chloride) 50 mls @ 100 mls/hr IV ONETIME ONE Stop: 10/11/17 07:53 Sodium Chloride (Saline Flush) 10 ml FLUSH ASDIRECTED PRN PRN Reason: Keep Vein Open Labs: Laboratory Tests 10/11/17 10/11/17 10/11/17 Range/Units 05:55 05:55 05:55 WBC 14.0 H (4.5-11.0) K/uL RBC 5.47 (4.30-5.90) M/uL Hgb 17.3 H (12.0-15.0) g/dL Hct 51.1 (40.0-54.0) % MCV 93 (80-98) fL MCH 32 H (27-31) pg MCHC 34 (32-36) % Plt Count 217 (150-400) K/uL Neut % (Auto) 74 H (36-66) % Lymph % (Auto) 14 L (24-44) % [place] % (Auto) 10 H (2-6) % Eos % (Auto) 1 L (2-4) % Baso % (Auto) 0 (0-1) % Sodium 138 L (140-148) mmol/L Potassium 4.1 (3.6-5.2) mmol/L Chloride 103 (100-108) mmol/L Carbon Dioxide 30 (21-32) mmol/L Anion Gap 9.1 (5.0-14.0) mmol/L BUN 12 (7-18) mg/dL Creatinine 1.2 (0.8-1.3) mg/dL Est Cr Clr Drug Dosing 73.21 mL/min Estimated GFR (MDRD) > 60 (>60) Glucose 133 H (74-106) mg/dL Lactic Acid 0.8 (0.4-2.0) mmol/L Calcium 8.4 L (8.5-10.1) mg/dL Total Bilirubin 0.4 (0.2-1.0) mg/dL AST 19 (15-37) U/L ALT 19 (12-78) U/L Alkaline Phosphatase 112 (46-116) U/L C-Reactive Protein 0.68 H (0.0-0.3) mg/dL Total Protein 7.2 (6.4-8.2) g/dL Albumin 3.7 (3.4-5.0) g/dL Globulin 3.5 (2.3-3.5) g/dL Albumin/Globulin Ratio 1.1 L (1.2-2.2) Urine Color Urine Appearance Urine pH (4.5-8.0) Ur Specific [place] (1.008-1.030) Urine Protein (NEGATIVE) mg/dL Urine Glucose (UA) (NEGATIVE) mg/dL Urine Ketones (NEGATIVE) mg/dL Urine Occult Blood (NEGATIVE) Urine Nitrite (NEGAITVE) Urine Bilirubin (NEGATIVE) Urine Urobilinogen (NORMAL) mg/dL Ur Leukocyte Esterase (NEGATIVE) Urine RBC (0-5) Urine WBC (0-5) Ur Epithelial Cells Amorphous Sediment Urine Bacteria Urine Mucus 10/11/17 Range/Units 06:54 WBC (4.5-11.0) K/uL RBC (4.30-5.90) M/uL Hgb (12.0-15.0) g/dL Hct (40.0-54.0) % MCV (80-98) fL MCH (27-31) pg MCHC (32-36) % Plt Count (150-400) K/uL Neut % (Auto) (36-66) % Lymph % (Auto) (24-44) % [place] % (Auto) (2-6) % Eos % (Auto) (2-4) % Baso % (Auto) (0-1) % Sodium (140-148) mmol/L Potassium (3.6-5.2) mmol/L Chloride (100-108) mmol/L Carbon Dioxide (21-32) mmol/L Anion Gap (5.0-14.0) mmol/L BUN (7-18) mg/dL Creatinine (0.8-1.3) mg/dL Est Cr Clr Drug Dosing mL/min Estimated GFR (MDRD) (>60) Glucose (74-106) mg/dL Lactic Acid (0.4-2.0) mmol/L Calcium (8.5-10.1) mg/dL Total Bilirubin (0.2-1.0) mg/dL AST (15-37) U/L ALT (12-78) U/L Alkaline Phosphatase (46-116) U/L C-Reactive Protein (0.0-0.3) mg/dL Total Protein (6.4-8.2) g/dL Albumin (3.4-5.0) g/dL Globulin (2.3-3.5) g/dL Albumin/Globulin Ratio (1.2-2.2) Urine Color Yellow Urine Appearance Clear Urine pH 6.0 (4.5-8.0) Ur Specific [place] 1.010 (1.008-1.030) Urine Protein Negative (NEGATIVE) mg/dL Urine Glucose (UA) Normal (NEGATIVE) mg/dL Urine Ketones Negative (NEGATIVE) mg/dL Urine Occult Blood Negative (NEGATIVE) Urine Nitrite Negative (NEGAITVE) Urine Bilirubin Negative (NEGATIVE) Urine Urobilinogen 1 (NORMAL) mg/dL Ur Leukocyte Esterase Negative (NEGATIVE) Urine RBC 0-5 (0-5) Urine WBC 0-5 (0-5) Ur Epithelial Cells Rare Amorphous Sediment Not seen Urine Bacteria Not seen Urine Mucus Not seen Meds: Medications Generic Name Dose Route Start Last Admin Trade Name Freq PRN Reason Stop Dose Admin Ceftriaxone Sodium 2 gm/ 50 mls @ 100 mls/hr 10/11/17 07:24 Sodium Chloride IV 10/11/17 07:53 ONETIME ONE Sodium Chloride 10 ml 10/11/17 07:24 Saline Flush FLUSH ASDIRECTED PRN Keep Vein Open Discontinued Medications Generic Name Dose Route Start Last Admin Trade Name Freq PRN Reason Stop Dose Admin Ketorolac Tromethamine 60 mg 10/11/17 05:46 10/11/17 05:56 Toradol IM 10/11/17 05:47 60 mg ONETIME ONE Administration Ondansetron HCl 4 mg 10/11/17 05:46 10/11/17 05:56 Zofran Odt PO 10/11/17 05:47 4 mg ONETIME ONE Administration Departure - Departure Disposition: Home, Self-Care 01 Clinical Impression: Cellulitis Qualifiers: Site of cellulitis: other site Qualified Code(s): L03.818 - Cellulitis of other sites - Discharge Information Prescriptions: cephALEXin [Cephalexin] 500 mg PO QID #30 capsule Instructions: Cellulitis, Adult Referrals: PCP,None [Primary Care Provider] - Forms: ED Department Discharge Additional Instructions: Keep warm compresses on area as often as possible. Take acetaminophen as needed for pain relief. Start taking cephalexin as directed tomorrow morning. Call today and schedule an ER follow up with your primary care provider for 1-3 days from now. - My Orders Last 24 Hours: My Active Orders 10/11/17 07:24 Sodium Chloride 0.9% [Saline Flush] 10 ml FLUSH ASDIRECTED PRN cefTRIAXone [Rocephin] 2 gm Sodium Chloride 0.9% [Normal Saline] 50 ml IV ONETIME Saline Lock Insert [OM.PC] Routine - Assessment/Plan Last 24 Hours: My Active Orders 10/11/17 07:24 Sodium Chloride 0.9% [Saline Flush] 10 ml FLUSH ASDIRECTED PRN cefTRIAXone [Rocephin] 2 gm Sodium Chloride 0.9% [Normal Saline] 50 ml IV ONETIME Saline Lock Insert [OM.PC] Routine <Deshaun New - Last Filed: 10/11/17 07:33> Course - Vital Signs Text/Narrative:: Scrotal US-cellulitis, possible very early abscess. Departure - Departure Time of Disposition: 08:15 Condition: Fair - Discharge Information *PRESCRIPTION DRUG MONITORING PROGRAM REVIEWED*: Not Applicable *COPY OF PRESCRIPTION DRUG MONITORING REPORT IN PATIENT TITI: Not Applicable - My Orders Last 24 Hours: My Active Orders 10/11/17 07:24 Sodium Chloride 0.9% [Saline Flush] 10 ml FLUSH ASDIRECTED PRN cefTRIAXone [Rocephin] 2 gm Sodium Chloride 0.9% [Normal Saline] 50 ml IV ONETIME Saline Lock Insert [OM.PC] Routine - Assessment/Plan Last 24 Hours: My Active Orders 10/11/17 07:24 Sodium Chloride 0.9% [Saline Flush] 10 ml FLUSH ASDIRECTED PRN cefTRIAXone [Rocephin] 2 gm Sodium Chloride 0.9% [Normal Saline] 50 ml IV ONETIME Saline Lock Insert [OM.PC] Routine
[2017-10-11 06:44] VITALS: BP 153/97
[2017-10-11] MEDS ORDERED: cefTRIAXone 2 GM in Sodium Chloride 0.9% 50 ML IV ONE ×2 (07:24→07:45)
[2017-10-11] MEDS ORDERED: Sodium Chloride 0.9% 10 ML Syringe FLUSH PRN (07:24)
== END 2017-10-11 08:24 | disposition home or self-care (01) ==
LOC: JP.ED 05:03
DX: N49.2 Inflammatory disorders of scrotum (principal); E11.9 Type 2 diabetes mellitus without complications; E03.9 Hypothyroidism, unspecified; I10 Essential (primary) hypertension; I25.2 Old myocardial infarction; F17.210 Nicotine dependence, cigarettes, uncomplicated; Z79.4 Long term (current) use of insulin; Z88.2 Allergy status to sulfonamides; Z88.1 Allergy status to other antibiotic agents; Z79.84 Long term (current) use of oral hypoglycemic drugs
CPT/HCPCS: 36415; 76870; 80053; 81001; 83605; 85025; 86140; 96365; 96375; 99284; A9270; J0696; J1885; J7050

== ENCOUNTER 2017-11-01 00:08 | Emergency (ER) | payer BC, MEDICARE ==
[2017-11-01 00:28] VITALS: BP 146/96
--- NOTE | 2017-11-01 01:43 | EDM.PDOC ---
ED HPI GENERAL MEDICAL PROBLEM - General Chief Complaint: Diabetic Complaint Stated Complaint: HIGH BLOOD SUGAR Time Seen by Provider: 11/01/17 00:40 Source of Information: Reports: Patient History Limitations: Reports: No Limitations - History of Present Illness INITIAL COMMENTS - FREE TEXT/NARRATIVE: 57-year-old male with poorly controlled but diabetes has been seen several times in the emergency room and clinic over the past 2 weeks, has been diagnosed with diverticulitis, pancreatitis, poorly controlled diabetes, placed on antibiotics, given pain medication and is had a CT scan 4 times. He was offered hospitalization but refused. He is not taking his insulin because he thinks it's making things worse, and tonight his glucose was high and he was still having some abdominal discomfort so he came in to get another opinion. No nausea or vomiting. I reviewed his clinic records from the last month in entirety prior to seeing the patient. Severity: Mild Associated Symptoms: Reports: Malaise. Denies: Fever/Chills, Loss of Appetite, Nausea/Vomiting, Shortness of Breath epigastric Pain Score (Numeric/FACES): 5 - Related Data Allergies Allergy/AdvReac Type Severity Reaction Status Date / Time Sulfa (Sulfonamide Allergy Intermediate Swollen Verified 11/01/17 00:28 Antibiotics) Eyes amoxicillin Allergy Fever Verified 11/01/17 00:28 Home Meds: Home Meds Albuterol [Ventolin HFA] 2 puff INH BID PRN 04/21/17 [History] Cyclobenzaprine HCl 5 mg PO TID PRN 04/21/17 [History] Insulin Isophane NPH, Human [NovoLIN N] 10 unit SUBCUT TID 04/21/17 [History] Levothyroxine [Synthroid] 75 mcg PO ACBREAKFAST 04/21/17 [History] Lisinopril 40 mg PO DAILY 04/21/17 [History] Metoprolol Succinate 200 mg PO DAILY 04/21/17 [History] Omeprazole 20 mg PO DAILY 04/21/17 [History] Potassium Chloride 10 meq PO DAILY 04/21/17 [History] amLODIPine Besylate [Amlodipine Besylate] 10 mg PO DAILY 04/21/17 [History] atorvaSTATin Calcium [Atorvastatin Calcium] 40 mg PO BEDTIME 04/21/17 [History] metFORMIN HCl [Metformin HCl] 1,000 mg PO DAILY 04/21/17 [History] cephALEXin [Cephalexin] 500 mg PO QID #30 capsule 10/11/17 [Rx] Past Medical History HEENT History: Reports: Impaired Vision, Sinusitis Cardiovascular History: Reports: CAD, High Cholesterol, Hypertension, [place] Respiratory History: Reports: Asthma, Other (See Below) Other Respiratory History: pneumonia Gastrointestinal History: Reports: Cholelithiasis, Colon Polyp, GERD, Pancreatitis Musculoskeletal History: Reports: Arthritis, Back Pain, Chronic, Fracture, Other (See Below) Other Musculoskeletal History: Nerve damage to back Neurological History: Reports: CVA, Neuropathy, Diabetic Psychiatric History: Reports: Depression Endocrine/Metabolic History: Reports: Diabetes, Type II, Hypothyroidism, Obesity /BMI 30+ - Infectious Disease History Infectious Disease History: Reports: Chicken Pox - Past Surgical History GI Surgical History: Reports: Appendectomy, Cholecystectomy, Colonoscopy, Hernia Repair/Other Male Surgical History: Reports: Circumcision, Other (See Below) Other Male Surgeries/Procedures: lanced cyst on left testicle 2016 Musculoskeletal Surgical History: Reports: Other (See Below) Social & Family History - Family History Cardiac: Reports: Hypertension : Reports: Renal Disease/Insufficiency Psychiatric: Reports: Depression Endocrine/Metabolic: Reports: Diabetes, type II Oncologic: Reports: Lung, Other (See Below) Other Oncologic Family History: Throat cancer - Tobacco Use Smoking Status *Q: Current Every Day Smoker Years of Tobacco use: 40 Packs/Tins Daily: 0.5 - Caffeine Use Caffeine Use: Reports: Coffee - Recreational Drug Use Recreational Drug Use: No ED ROS GENERAL - Review of Systems Review Of Systems: See Below Constitutional: Reports: Malaise. Denies: Fever, Chills, Decreased Appetite HEENT: Reports: No Symptoms Respiratory: Denies: Shortness of Breath Cardiovascular: Denies: Chest Pain GI/Abdominal: Reports: Abdominal Pain. Denies: Diarrhea, Vomiting : Reports: No Symptoms Neurological: Reports: No Symptoms ED EXAM GENERAL NO PERIP PULSE - Physical Exam Exam: See Below Exam Limited By: No Limitations General Appearance: Alert, No Apparent Distress Eye Exam: Bilateral Eye: Normal Inspection Respiratory/Chest: No Respiratory Distress, Lungs Clear Cardiovascular: Regular Rate, Rhythm GI/Abdominal: Normal Bowel Sounds, Tender (Some tenderness to palpation in the right upper quadrant and epigastric area but no mass or distention, no guarding or rebound) Course - Vital Signs Last Recorded V/S: Last Vital Signs Temp 96.2 F 11/01/17 00:27 Pulse 72 11/01/17 00:27 Resp 18 11/01/17 00:27 BP 146/96 H 11/01/17 00:27 Pulse Ox 97 11/01/17 00:27 - Orders/Labs/Meds Labs: Laboratory Tests 11/01/17 11/01/17 Range/Units 01:25 01:25 WBC 12.0 H (4.5-11.0) K/uL RBC 5.38 (4.30-5.90) M/uL Hgb 16.7 H (12.0-15.0) g/dL Hct 49.4 (40.0-54.0) % MCV 92 (80-98) fL MCH 31 (27-31) pg MCHC 34 (32-36) % Plt Count 230 (150-400) K/uL Neut % (Auto) 58 (36-66) % Lymph % (Auto) 25 (24-44) % [place] % (Auto) 15 H (2-6) % Eos % (Auto) 2 (2-4) % Baso % (Auto) 1 (0-1) % Sodium 134 L (140-148) mmol/L Potassium 4.6 (3.6-5.2) mmol/L Chloride 99 L (100-108) mmol/L Carbon Dioxide 31 (21-32) mmol/L Anion Gap 8.6 (5.0-14.0) mmol/L BUN 16 (7-18) mg/dL Creatinine 1.1 (0.8-1.3) mg/dL Est Cr Clr Drug Dosing 79.86 mL/min Estimated GFR (MDRD) > 60 (>60) Glucose 240 H (74-106) mg/dL Calcium 8.9 (8.5-10.1) mg/dL Amylase 72 (25-115) U/L Lipase 681 H (73-393) U/L Meds: Medications Discontinued Medications Generic Name Dose Route Start Last Admin Trade Name Freq PRN Reason Stop Dose Admin Insulin Human Regular 8 unit 11/01/17 01:52 11/01/17 02:08 Novolin R SUBCUT 11/01/17 01:53 8 units ONETIME ONE Administration Protocol - Re-Assessments/Exams Free Text/Narrative Re-Assessment/Exam: 11/01/17 01:[address] of his abdomen on the and which was 2 and 6 days ago both showed a mild amount of peripancreatic stranding. His lipase was 153 and had fallen on the to 110. These were done in [place], there lab has a different normal range. He does not appear to be acutely ill. A CBC, BMP, lipase and amylase were redrawn. 11/01/17 01:49 Lipase was 681 which is similar to what it was 8 days ago on his first ER visit here in [place]. Amylase was normal. He does not appear clinically to have acute pancreatitis. His glucose was 240, he was given 8 units of short acting insulin subcutaneously. I asked him to restart his metformin tomorrow as prescribed as he has missed several days, and stick to just clear liquids for the next 24-48 hours. He also needs to follow his short acting insulin regimen as prescribed by his primary physician and community health educator. If he worsens he' ll return. Departure - Departure Time of Disposition: 02:17 Disposition: Home, Self-Care 01 Condition: Good Clinical Impression: Hyperglycemia Abdominal pain Qualifiers: Abdominal location: upper abdomen, unspecified Qualified Code(s): R10.10 - Upper abdominal pain, unspecified - Discharge Information Instructions: Hyperglycemia, [id number] Referrals: PCP,None [Primary Care Provider] - Forms: ED Department Discharge Care Plan Goals: Restart metformin tomorrow as prescribed, stop all antibiotics and I would strongly suggest you use your regular insulin as recommended by your community health educator and primary provider. Return anytime if worsening.
[2017-11-01] MEDS ORDERED: Insulin Regular, Human 100 Units/ML 10 ML Vial SUBCUT ONE (01:52)
== END 2017-11-01 02:17 | disposition home or self-care (01) ==
LOC: JP.ED 00:08
DX: E11.65 Type 2 diabetes mellitus with hyperglycemia (principal); R10.13 Epigastric pain; I10 Essential (primary) hypertension; E11.40 Type 2 diabetes mellitus with diabetic neuropathy, unspecified; E03.9 Hypothyroidism, unspecified; E66.9 Obesity, unspecified; Z79.899 Other long term (current) drug therapy; F17.210 Nicotine dependence, cigarettes, uncomplicated; Z88.2 Allergy status to sulfonamides; Z88.1 Allergy status to other antibiotic agents
CPT/HCPCS: 36415; 80048; 82150; 83690; 85025; 99284; A9270

== ENCOUNTER 2018-05-27 13:16 | Emergency (ER) | payer BC, MEDICARE ==
[2018-05-27 13:43] VITALS: BP 158/94
[2018-05-27] MEDS ORDERED: Bacitracin Oint 1 GM U/D Packet TOP ONE (13:58)
--- NOTE | 2018-05-27 14:18 | EDM.PDOC ---
ED HPI GENERAL MEDICAL PROBLEM - General Chief Complaint: Laceration Stated Complaint: CUT MIDDLE FINGER LEFT HAND Time Seen by Provider: 05/27/18 13:51 Source of Information: Reports: Patient, Family, RN Notes Reviewed History Limitations: Reports: No Limitations - History of Present Illness INITIAL COMMENTS - FREE TEXT/NARRATIVE: 58-year-old gentleman presents emergency department today with laceration to the palmar surface distal tip of digit #3 left hand he injured himself while putting would the fire truck wood slid across his hand and lacerated the distal tip no functional complaints Left Finger-Middle Pain Score (Numeric/FACES): 7 - Related Data Allergies Allergy/AdvReac Type Severity Reaction Status Date / Time Sulfa (Sulfonamide Allergy Intermediate Swollen Verified 05/27/18 13:24 Antibiotics) Eyes amoxicillin Allergy Fever Verified 05/27/18 13:24 Home Meds: Home Meds Albuterol [Ventolin HFA] 2 puff INH BID PRN 04/21/17 [History] Cyclobenzaprine HCl 5 mg PO TID PRN 04/21/17 [History] Insulin Isophane NPH, Human [NovoLIN N] 10 unit SUBCUT TID 04/21/17 [History] Levothyroxine [Synthroid] 75 mcg PO ACBREAKFAST 04/21/17 [History] Lisinopril 40 mg PO DAILY 04/21/17 [History] Metoprolol Succinate 200 mg PO DAILY 04/21/17 [History] Omeprazole 20 mg PO DAILY 04/21/17 [History] Potassium Chloride 10 meq PO DAILY 04/21/17 [History] amLODIPine Besylate [Amlodipine Besylate] 10 mg PO DAILY 04/21/17 [History] atorvaSTATin Calcium [Atorvastatin Calcium] 40 mg PO BEDTIME 04/21/17 [History] metFORMIN HCl [Metformin HCl] 1,000 mg PO DAILY 04/21/17 [History] Aspirin [Halfprin] 81 mg PO DAILY 01/27/18 [History] Chromium Amino Acid Chelate [Chromium] 1,000 mcg PO DAILY 01/27/18 [History] Ciclopirox/Ure/Camph/Menth/Euc [Ciclopirox 8% Treatment Kit] 1 ml TOP ASDIRECTED 01/27/18 [History] Dextrose [Glucose] 4 gm PO ASDIRECTED PRN 01/27/18 [History] Diclofenac Sodium [Voltaren] 4 gm TOP TID 01/27/18 [History] Ergocalciferol (Vitamin D2) [Vitamin D2] 50,000 unit PO DAILY 01/27/18 [History] Fluticasone/Vilanterol [Breo Ellipta 100-25 MCG Inhalation Kit] 1 puff IH ASDIRECTED 01/27/18 [History] Furosemide [Lasix] 20 mg PO BID 01/27/18 [History] Gabapentin [Neurontin] 300 mg PO ASDIRECTED 01/27/18 [History] Insulin Glargine,Hum.Rec.Anlog [Lantus Solostar] 20 unit SQ QAM 01/27/18 [ History] Insulin Isophane NPH, Human [HumuLIN N] 10 units SQ TID 01/27/18 [History] L.acidoph/B.long/L.plant/B.lac [Probiotic Acidophilus Beads] 1 cap PO DAILY [History] Montelukast [Singulair] 1 tab PO BEDTIME 01/27/18 [History] Nicotine [Nicotine Patch] 1 patch TOP DAILY 01/27/18 [History] Phenazopyridine [Pyridium] 1 tab PO TID 01/27/18 [History] Pramipexole Di-HCl [Mirapex] 1 tab PO QPM 01/27/18 [History] Tamsulosin [Flomax] 1 cap PO DAILY 01/27/18 [History] Tobramycin 0.3% [Tobramycin 0.3% Ophth Soln] 1 drop EYELF TID 01/27/18 [History] metroNIDAZOLE [Flagyl] 1 tab PO TID 01/27/18 [History] rOPINIRole [Requip] 1 tab PO QPM 01/27/18 [History] Past Medical History HEENT History: Reports: Impaired Vision, Sinusitis Cardiovascular History: Reports: CAD, High Cholesterol, Hypertension, [place] Respiratory History: Reports: Asthma, Other (See Below) Other Respiratory History: pneumonia Gastrointestinal History: Reports: Cholelithiasis, Colon Polyp, GERD, Pancreatitis Musculoskeletal History: Reports: Arthritis, Back Pain, Chronic, Fracture, Other (See Below) Other Musculoskeletal History: Nerve damage to back Neurological History: Reports: CVA, Neuropathy, Diabetic Psychiatric History: Reports: Depression Endocrine/Metabolic History: Reports: Diabetes, Type II, Hypothyroidism, Obesity /BMI 30+ - Infectious Disease History Infectious Disease History: Reports: Chicken Pox - Past Surgical History Head Surgeries/Procedures: Reports: None HEENT Surgical History: Reports: Tonsillectomy Cardiovascular Surgical History: Reports: None Respiratory Surgical History: Reports: None GI Surgical History: Reports: Appendectomy, Cholecystectomy, Colonoscopy, Hernia Repair/Other Male Surgical History: Reports: Circumcision, Other (See Below) Other Male Surgeries/Procedures: lanced cyst on left testicle 2016 Neurological Surgical History: Reports: None Musculoskeletal Surgical History: Reports: Other (See Below) Dermatological Surgical History: Reports: None Social & Family History - Family History Cardiac: Reports: Hypertension : Reports: Renal Disease/Insufficiency Psychiatric: Reports: Depression Endocrine/Metabolic: Reports: Diabetes, type II Oncologic: Reports: Lung, Other (See Below) Other Oncologic Family History: Throat cancer - Tobacco Use Smoking Status *Q: Current Every Day Smoker Years of Tobacco use: 36 Packs/Tins Daily: 1 Used Tobacco, but Quit: No Second Hand Smoke Exposure: No - Caffeine Use Caffeine Use: Reports: Coffee, Soda - Recreational Drug Use Recreational Drug Use: No ED ROS GENERAL - Review of Systems Review Of Systems: See Below Skin: Reports: Wound Neurological: Reports: No Symptoms ED EXAM, SKIN/RASH Exam: See Below Text/Narrative:: Examination of left hand there is a 3 cm laceration palmar surface digit #3 left hand, full range of motion of all digits radial pulse is +2 sensation is intact ED SKIN PROCEDURES - Laceration/Wound Repair Left Digit - 3rd (Middle) Lac/Wound length In cm: 3 Appearance: Subcutaneous, Irregular Distal NVT: Neuro & Vascular Intact, No Tendon Injury Anesthetic Type: Digital Local Anesthesia - Lidocaine (Xylocaine): 1% Plain Local Anesthetic Volume: 2cc Skin Prep: Chlorhexidine (Hibiciens), Saline Saline Irrigation (cc's): 60 Exploration/Debridement/Repair: Wound Explored, In a Bloodless Field, Explored to Base Closed with: Sutures Suture Size: 4-0 # of Sutures: 5 Suture Type: Interrupted, Running Tetanus Status Addressed: Yes (2016) Complications: No Course - Vital Signs Last Recorded V/S: Last Vital Signs Temp 96.8 F 05/27/18 13:43 Pulse 71 05/27/18 13:43 Resp 17 05/27/18 13:43 BP 158/94 H 04/12/19 13:43 Pulse Ox 96 05/27/18 13:43 - Orders/Labs/Meds Meds: Medications Discontinued Medications Generic Name Dose Route Start Last Admin Trade Name Keisha PRN Reason Stop Dose Admin Bacitracin 1 dose 05/27/18 13:58 05/27/18 14:11 Bacitracin Oint 1 Gm TOP 05/27/18 13:59 1 dose ONETIME ONE Administration Lidocaine HCl 5 ml 05/27/18 13:58 05/27/18 14:12 Xylocaine-Mpf 1% INJECT 05/27/18 13:59 5 ml ONETIME ONE Administration Departure - Departure Time of Disposition: 14:40 Disposition: Home, Self-Care 01 Condition: Good Clinical Impression: Laceration of middle finger of left hand without complication Qualifiers: Encounter type: initial encounter Qualified Code(s): S61.213A - Laceration without foreign body of left middle finger without damage to nail, initial encounter - Discharge Information Referrals: PCP,None [Primary Care Provider] - Forms: ED Department Discharge Additional Instructions: Suture removal in 10 days, follow wound care instruction sheet, follow-up with primary care return to the emergency department for suture removal - Assessment/Plan Plan: Assessment Acuity = acute Site and laterality = laceration digit #3 left hand palmar surface Etiology = trauma Manifestations = none Location of injury = Home Lab values = [none Plan Suture removal in 10 days, follow wound care instruction sheet This note was dictated using FAD ? IO voice recognition software please call with any questions on syntax or grammar.
== END 2018-05-27 15:00 | disposition home or self-care (01) ==
LOC: JP.ED 13:16
DX: S61.213A Laceration without foreign body of left middle finger without damage to nail, initial encounter (principal); F17.210 Nicotine dependence, cigarettes, uncomplicated; I10 Essential (primary) hypertension; E78.00 Pure hypercholesterolemia, unspecified; I25.10 Atherosclerotic heart disease of native coronary artery without angina pectoris; K21.9 Gastro-esophageal reflux disease without esophagitis; E11.40 Type 2 diabetes mellitus with diabetic neuropathy, unspecified; F32.9 Major depressive disorder, single episode, unspecified; E03.9 Hypothyroidism, unspecified; Z79.82 Long term (current) use of aspirin; Z79.4 Long term (current) use of insulin; Z79.899 Other long term (current) drug therapy; Z88.2 Allergy status to sulfonamides; W22.8XXA Striking against or struck by other objects, initial encounter
CPT/HCPCS: 12002; 99282; J2001

== ENCOUNTER 2018-05-29 07:53 | Emergency (ER) | payer BC, MEDICARE ==
[2018-05-29] MEDS ORDERED: Sodium Chloride 0.9% 10 ML Syringe FLUSH PRN (08:51)
[2018-05-29] MEDS ORDERED: fentaNYL 100 MCG/2 ML SDV IVPUSH ONE (08:53)
[2018-05-29] MEDS ORDERED: Ondansetron 4 MG/2 ML SDV IVPUSH ONE (08:53)
--- NOTE | 2018-05-29 08:56 | EDM.PDOC ---
ED HPI GENERAL MEDICAL PROBLEM - General Chief Complaint: Abdominal Pain Stated Complaint: CHEST PAINS Time Seen by Provider: 05/29/18 08:44 Source of Information: Reports: Patient, Old Records, RN Notes Reviewed History Limitations: Reports: No Limitations - History of Present Illness INITIAL COMMENTS - FREE TEXT/NARRATIVE: 58-year-old gentleman presents emergency department day complaint of abdominal pain, he states the pain started last night at 1 AM was intense about a 7 on a 10 it has improved is constant nature somewhat positional does need better with standing. No nausea vomiting diaphoresis no shortness of breath no chest pain no GI symptomatologies. Denies any unusual foods. Does have a history of appendectomy and cholecystectomy Upper Abdomen Pain Score (Numeric/FACES): 7 - Related Data Allergies Allergy/AdvReac Type Severity Reaction Status Date / Time Sulfa (Sulfonamide Allergy Intermediate Swollen Verified 05/29/18 08:11 Antibiotics) Eyes amoxicillin Allergy Fever Verified 05/29/18 08:11 Home Meds: Home Meds Albuterol [Ventolin HFA] 2 puff INH BID PRN 04/21/17 [History] Insulin Isophane NPH, Human [NovoLIN N] 10 unit SUBCUT TID 04/21/17 [History] Levothyroxine [Synthroid] 75 mcg PO ACBREAKFAST 04/21/17 [History] Lisinopril 40 mg PO DAILY 04/21/17 [History] Metoprolol Succinate 200 mg PO DAILY 04/21/17 [History] Omeprazole 20 mg PO DAILY 04/21/17 [History] Potassium Chloride 10 meq PO DAILY 04/21/17 [History] amLODIPine Besylate [Amlodipine Besylate] 10 mg PO DAILY 04/21/17 [History] atorvaSTATin Calcium [Atorvastatin Calcium] 40 mg PO BEDTIME 04/21/17 [History] metFORMIN HCl [Metformin HCl] 1,000 mg PO DAILY 04/21/17 [History] Aspirin [Halfprin] 81 mg PO DAILY 01/27/18 [History] Chromium Amino Acid Chelate [Chromium] 1,000 mcg PO DAILY 01/27/18 [History] Ciclopirox/Ure/Camph/Menth/Euc [Ciclopirox 8% Treatment Kit] 1 ml TOP ASDIRECTED 01/27/18 [History] Dextrose [Glucose] 4 gm PO ASDIRECTED PRN 01/27/18 [History] Ergocalciferol (Vitamin D2) [Vitamin D2] 50,000 unit PO DAILY 01/27/18 [History] Fluticasone/Vilanterol [Breo Ellipta 100-25 MCG Inhalation Kit] 1 puff IH ASDIRECTED 01/27/18 [History] Furosemide [Lasix] 20 mg PO BID 01/27/18 [History] Insulin Glargine,Hum.Rec.Anlog [Lantus Solostar] 20 unit SQ QAM 01/27/18 [ History] Insulin Isophane NPH, Human [HumuLIN N] 10 units SQ TID 01/27/18 [History] Tamsulosin [Flomax] 1 cap PO DAILY 01/27/18 [History] Hydrocodone/Acetaminophen [Hydrocodon-Acetaminophen 5-325] 1 each PO TID PRN # 10 tablet 05/29/18 [Rx] Past Medical History HEENT History: Reports: Impaired Vision, Sinusitis Cardiovascular History: Reports: CAD, High Cholesterol, Hypertension, HI Respiratory History: Reports: Asthma, Other (See Below) Other Respiratory History: pneumonia Gastrointestinal History: Reports: Cholelithiasis, Colon Polyp, GERD, Pancreatitis Musculoskeletal History: Reports: Arthritis, Back Pain, Chronic, Fracture, Other (See Below) Other Musculoskeletal History: Nerve damage to back Neurological History: Reports: CVA, Neuropathy, Diabetic Psychiatric History: Reports: Depression Endocrine/Metabolic History: Reports: Diabetes, Type II, Hypothyroidism, Obesity /BMI 30+ - Infectious Disease History Infectious Disease History: Reports: Chicken Pox - Past Surgical History HEENT Surgical History: Reports: Tonsillectomy Cardiovascular Surgical History: Reports: None Respiratory Surgical History: Reports: None GI Surgical History: Reports: Appendectomy, Cholecystectomy, Colonoscopy, Hernia Repair/Other Male Surgical History: Reports: Circumcision, Other (See Below) Other Male Surgeries/Procedures: lanced cyst on left testicle 2016 Musculoskeletal Surgical History: Reports: Other (See Below) Social & Family History - Family History Cardiac: Reports: Hypertension : Reports: Renal Disease/Insufficiency Psychiatric: Reports: Depression Endocrine/Metabolic: Reports: Diabetes, type II Oncologic: Reports: Lung, Other (See Below) Other Oncologic Family History: Throat cancer - Tobacco Use Smoking Status *Q: Current Every Day Smoker Years of Tobacco use: 35 Packs/Tins Daily: 0.2 Used Tobacco, but Quit: No Second Hand Smoke Exposure: Yes - Caffeine Use Caffeine Use: Reports: Coffee, Soda - Recreational Drug Use Recreational Drug Use: No ED ROS GENERAL - Review of Systems Review Of Systems: See Below Constitutional: Denies: Fever, Chills, Diaphoresis HEENT: Reports: No Symptoms Respiratory: Reports: No Symptoms Cardiovascular: Reports: No Symptoms GI/Abdominal: Reports: Abdominal Pain, Flatus. Denies: Constipation, Diarrhea, Nausea, Vomiting : Reports: No Symptoms Musculoskeletal: Reports: No Symptoms Skin: Reports: No Symptoms ED EXAM, GI/ABD - Physical Exam Exam: See Below Exam Limited By: No Limitations General Appearance: Alert, WD/WN, No Apparent Distress Head: Atraumatic, Normocephalic Neck: Normal Inspection, Supple, Non-Tender, Full Range of Motion Respiratory/Chest: No Respiratory Distress, Lungs Clear, Normal Breath Sounds, No Accessory Muscle Use, Chest Non-Tender Cardiovascular: Regular Rate, Rhythm, No Murmur GI/Abdominal Exam: Soft, No Organomegaly, No Distention, Tender (Epigastric region) Back Exam: Normal Inspection, Full Range of Motion. No: CVA Tenderness (R), CVA Tenderness (L) Extremities: Normal Range of Motion, Non-Tender, No Pedal Edema Course - Vital Signs Last Recorded V/S: Last Vital Signs Temp 96.8 F 05/29/18 12:00 Pulse 64 05/29/18 12:00 Resp 16 05/29/18 12:00 BP 165/102 H 05/29/18 12:00 Pulse Ox 94 L 05/29/18 12:00 - Orders/Labs/Meds Orders: Active Orders 24 hr Category Date Time Status EKG Documentation Completion [RC] ASDIRECTED Care 05/29/18 08:54 Active Peripheral IV Care [RC] . DIRECTED Care 05/29/18 08:51 Active Lactated Ringers [Ringers, Lactated] 1,000 ml Med 05/29/18 09:00 Active IV ASDIRECTED Sodium Chloride 0.9% [Saline Flush] Med 05/29/18 08:51 Active 10 ml FLUSH ASDIRECTED PRN Peripheral IV Insertion Adult [OM.PC] Urgent Oth 05/29/18 08:51 Ordered EKG 12 Lead [EK] Stat Ther 05/29/18 08:54 Ordered Medication Orders Lactated Ringer's (Ringers, Lactated) 1,000 mls @ 999 mls/hr IV ASDIRECTED PREET Last Admin: 05/29/18 09:20 Dose: 999 mls/hr Sodium Chloride (Saline Flush) 10 ml FLUSH ASDIRECTED PRN PRN Reason: Keep Vein Open Labs: Laboratory Tests 05/29/18 05/29/18 05/29/18 Range/Units 09:03 09:03 09:03 WBC 10.4 (4.5-11.0) K/uL RBC 5.39 (4.30-5.90) M/uL Hgb 16.7 H (12.0-15.0) g/dL Hct 49.9 (40.0-54.0) % MCV 93 (80-98) fL MCH 31 (27-31) pg MCHC 34 (32-36) % Plt Count 249 (150-400) K/uL Neut % (Auto) 72 H (36-66) % Lymph % (Auto) 18 L (24-44) % [place] % (Auto) 9 H (2-6) % Eos % (Auto) 1 L (2-4) % Baso % (Auto) 1 (0-1) % Sodium 135 L (140-148) mmol/L Potassium 4.2 (3.6-5.2) mmol/L Chloride 99 L (100-108) mmol/L Carbon Dioxide 28 (21-32) mmol/L Anion Gap 12.2 (5.0-14.0) mmol/L BUN 14 (7-18) mg/dL Creatinine 1.1 (0.8-1.3) mg/dL Est Cr Clr Drug Dosing 78.91 mL/min Estimated GFR (MDRD) > 60 (>60) Glucose 207 H (74-106) mg/dL Lactic Acid 1.3 (0.4-2.0) mmol/L Calcium 9.0 (8.5-10.1) mg/dL Total Bilirubin 0.2 (0.2-1.0) mg/dL AST 11 L (15-37) U/L ALT 19 (12-78) U/L Alkaline Phosphatase 143 H (46-116) U/L Troponin I < 0.017 (0.000-0.056) ng/mL Total Protein 7.7 (6.4-8.2) g/dL Albumin 3.7 (3.4-5.0) g/dL Globulin 4.0 H (2.3-3.5) g/dL Albumin/Globulin Ratio 0.9 L (1.2-2.2) Lipase 515 H (73-393) U/L Urine Color Urine Appearance Urine pH (4.5-8.0) Ur Specific [place] (1.008-1.030) Urine Protein (NEGATIVE) mg/dL Urine Glucose (UA) (NEGATIVE) mg/dL Urine Ketones (NEGATIVE) mg/dL Urine Occult Blood (NEGATIVE) Urine Nitrite (NEGAITVE) Urine Bilirubin (NEGATIVE) Urine Urobilinogen (NORMAL) mg/dL Ur Leukocyte Esterase (NEGATIVE) Urine RBC (0-5) Urine WBC (0-5) Ur Epithelial Cells Amorphous Sediment Urine Bacteria Urine Mucus 05/29/18 Range/Units 10:48 WBC (4.5-11.0) K/uL RBC (4.30-5.90) M/uL Hgb (12.0-15.0) g/dL Hct (40.0-54.0) % MCV (80-98) fL MCH (27-31) pg MCHC (32-36) % Plt Count (150-400) K/uL Neut % (Auto) (36-66) % Lymph % (Auto) (24-44) % [place] % (Auto) (2-6) % Eos % (Auto) (2-4) % Baso % (Auto) (0-1) % Sodium (140-148) mmol/L Potassium (3.6-5.2) mmol/L Chloride (100-108) mmol/L Carbon Dioxide (21-32) mmol/L Anion Gap (5.0-14.0) mmol/L BUN (7-18) mg/dL Creatinine (0.8-1.3) mg/dL Est Cr Clr Drug Dosing mL/min Estimated GFR (MDRD) (>60) Glucose (74-106) mg/dL Lactic Acid (0.4-2.0) mmol/L Calcium (8.5-10.1) mg/dL Total Bilirubin (0.2-1.0) mg/dL AST (15-37) U/L ALT (12-78) U/L Alkaline Phosphatase (46-116) U/L Troponin I (0.000-0.056) ng/mL Total Protein (6.4-8.2) g/dL Albumin (3.4-5.0) g/dL Globulin (2.3-3.5) g/dL Albumin/Globulin Ratio (1.2-2.2) Lipase (73-393) U/L Urine Color Yellow Urine Appearance Clear Urine pH 7.0 (4.5-8.0) Ur Specific [place] 1.005 L (1.008-1.030) Urine Protein Negative (NEGATIVE) mg/dL Urine Glucose (UA) Negative (NEGATIVE) mg/dL Urine Ketones Negative (NEGATIVE) mg/dL Urine Occult Blood Negative (NEGATIVE) Urine Nitrite Negative (NEGAITVE) Urine Bilirubin Negative (NEGATIVE) Urine Urobilinogen Normal (NORMAL) mg/dL Ur Leukocyte Esterase Negative (NEGATIVE) Urine RBC Not seen (0-5) Urine WBC Not seen (0-5) Ur Epithelial Cells Not seen Amorphous Sediment Rare Urine Bacteria Not seen Urine Mucus Not seen Meds: Medications Generic Name Dose Route Start Last Admin Trade Name Freq PRN Reason Stop Dose Admin Lactated Ringer's 1,000 mls @ 999 mls/hr 05/29/18 09:00 05/29/18 09:20 Ringers, Lactated IV 999 mls/hr ASDIRECTED PREET Administration Sodium Chloride 10 ml 05/29/18 08:51 Saline Flush FLUSH ASDIRECTED PRN Keep Vein Open Discontinued Medications Generic Name Dose Route Start Last Admin Trade Name Freq PRN Reason Stop Dose Admin Fentanyl 50 mcg 05/29/18 08:53 05/29/18 09:30 Sublimaze IVPUSH 05/29/18 08:54 50 mcg ONETIME ONE Administration Sodium Chloride 85 mls @ 3 mls/sec 05/29/18 10:30 05/29/18 10:46 Normal Saline IV 05/29/18 11:30 3 mls/sec ASDIRECTED PREET Administration Iopamidol 150 ml 05/29/18 10:30 05/29/18 10:45 Isovue-300 (61%) IV 05/29/18 11:30 150 ml . DIRECTED PREET Administration Ondansetron HCl 4 mg 05/29/18 08:53 05/29/18 09:29 Zofran IVPUSH 05/29/18 08:54 4 mg ONETIME ONE Administration Sodium Chloride 10 ml 05/29/18 10:26 05/29/18 10:46 Saline Flush FLUSH 05/29/18 10:27 10 ml ONETIME ONE Administration Departure - Departure Time of Disposition: 12:06 Disposition: Home, Self-Care 01 Condition: Fair Clinical Impression: Pancreatitis Qualifiers: Chronicity: acute Pancreatitis type: idiopathic Acute pancreatitis complication : no infection or necrosis Qualified Code(s): K85.00 - Idiopathic acute pancreatitis without necrosis or infection - Discharge Information Prescriptions: Hydrocodone/Acetaminophen [Hydrocodon-Acetaminophen 5-325] 1 each PO TID PRN # 10 tablet PRN Reason: Pain Referrals: PCP,None [Primary Care Provider] - Forms: ED Department Discharge Additional Instructions: Recommended clear liquid diet, use hydrocodone as needed for pain control, please follow-up with your primary care provider in the next 2-3 days for reevaluation - My Orders Last 24 Hours: My Active Orders 05/29/18 08:51 Peripheral IV Care [RC] . DIRECTED Sodium Chloride 0.9% [Saline Flush] 10 ml FLUSH ASDIRECTED PRN Peripheral IV Insertion Adult [OM.PC] Urgent 05/29/18 08:54 EKG Documentation Completion [RC] ASDIRECTED EKG 12 Lead [EK] Stat 05/29/18 09:00 Lactated Ringers [Ringers, Lactated] 1,000 ml IV ASDIRECTED - Assessment/Plan Last 24 Hours: My Active Orders 05/29/18 08:51 Peripheral IV Care [RC] . DIRECTED Sodium Chloride 0.9% [Saline Flush] 10 ml FLUSH ASDIRECTED PRN Peripheral IV Insertion Adult [OM.PC] Urgent 05/29/18 08:54 EKG Documentation Completion [RC] ASDIRECTED EKG 12 Lead [EK] Stat 05/29/18 09:00 Lactated Ringers [Ringers, Lactated] 1,000 ml IV ASDIRECTED Plan: Assessment Acuity = acute Site and laterality = pancreatitis Etiology = unknown etiology Manifestations = abdominal pain Location of injury = Home Lab values = CBC unremarkable, CMP also unremarkable troponin was negative lipase slightly elevated [address] scan of the abdomen does show stranding around the pancreas consistent with a pancreatitis also concerns for duodenitis Plan I did review with him options which include hospital admission he declined at this time he has had pancreatitis in the past which she treated as an outpatient basis therefore will try it again I am writing prescription for hydrocodone 5/325 one tablet by mouth 3 times a day when necessary total #10 those medications are faxed to [facility], he is going to start a clear liquid diet he will follow-up with his primary care next week for further evaluation This note was dictated using [employer] voice recognition software please call with any questions on syntax or grammar.
[2018-05-29] MEDS ORDERED: Lactated Ringers 1,000 ML IV SCH (09:00)
[2018-05-29] MEDS ORDERED: Sodium Chloride 0.9% 10 ML Syringe FLUSH ONE (10:26)
[2018-05-29] MEDS ORDERED: Iopamidol 612 MG/ML 150 ML Bottle IV SCH (10:30)
--- NOTE | 2018-05-29 11:17 | CRLCT ---
INDICATION: RUQ [id number] images. 150 mL isovue [id number] images onFeb 01 previous Indication: Right upper quadrant abdominal pain. Technique: CT of the abdomen and pelvis. 150 cc of Isovue-300 IV. Coronal/sagittal reconstruction images. Comparison: CT of the abdomen and pelvis 01/27/2018. Findings: Lung bases: There is no pleural or pericardial effusion. The heart size is normal. There is dependent atelectasis. There is no acute airspace disease. There is no basilar pneumothorax. Abdomen/pelvis: Cholecystectomy. Normal caliber biliary tree. Spleen size is normal. There is a left adrenal mass, which appears well-circumscribed, and measures 2.1 cm in AP dimension. No interval change. There is no contralateral adrenal mass. There is uniform enhancement of the pancreas. There is mild fat stranding present around the retroperitoneal portion of the duodenum. This may represent acute interstitial edematous pancreatitis. Duodenitis is an additional consideration. No drainable fluid collection. No evidence for pancreatic necrosis. There is cortical loss present in the left kidney, which is unchanged. A renal AML is a less likely consideration. Similar findings are seen in the contralateral kidney. The spleen size is normal. There is no portal vein thrombosis. The splenic vein and SMV are patent. Urinary bladder and prostate gland are within normal limits. There is no wall thickening within the small bowel or colon. There is no mucosal hyper enhancement. No transition point to indicate a mechanical small bowel or colonic obstruction. The celiac axis, SMA, and TOYA are patent. 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 This is unchanged. The aneurysm measures 26 millimeters in maximum dimension. No abdominal or pelvic lymphadenopathy is seen by size criteria. The bone windows demonstrate no suspicious lytic or blastic bone lesions. Minor osteophytic spurring is present at the endplates and SI joints. On sagittal reconstruction images, the vertebral body heights are maintained. Impression: 1. Fat stranding present adjacent to the head of the pancreas/retroperitoneal portion of the duodenum. Differential diagnosis includes duodenitis or acute interstitial edematous pancreatitis. 2. No drainable organized fluid collection. No evidence on single-phase CT for pancreatic necrosis. 3. Cholecystectomy. Normal caliber biliary tree. No common bile duct stone identified. 4. Report called to Officer, emergency department, 05/29/2018, 11:14 a.m. Dictated by Shawn Schultz MD @ 05/29/2018 11:15:54 AM Please note that all CT scans at this facility use dose modulation, iterative reconstruction, and/or weight-based dosing when appropriate to reduce radiation dose to as low as reasonably achievable. Dictated by: Shawn Schultz MD @ 05/29/2018 11:16:01 (Electronically Signed)
[2018-05-29 12:02] VITALS: BP 165/102
== END 2018-05-29 12:22 | disposition home or self-care (01) ==
LOC: JP.ED 07:53
DX: K85.00 Idiopathic acute pancreatitis without necrosis or infection (principal); I25.10 Atherosclerotic heart disease of native coronary artery without angina pectoris; E78.00 Pure hypercholesterolemia, unspecified; I10 Essential (primary) hypertension; I25.2 Old myocardial infarction; J45.909 Unspecified asthma, uncomplicated; E11.9 Type 2 diabetes mellitus without complications; E03.9 Hypothyroidism, unspecified; F17.210 Nicotine dependence, cigarettes, uncomplicated; Z88.2 Allergy status to sulfonamides; Z88.1 Allergy status to other antibiotic agents; Z79.4 Long term (current) use of insulin; Z79.899 Other long term (current) drug therapy; Z79.82 Long term (current) use of aspirin
CPT/HCPCS: 36415; 74177; 80053; 81001; 83605; 83690; 84484; 85025; 93005; 96361; 96374; 96375; 99284; J2405; J3010; J7030; J7120

== ENCOUNTER 2018-06-04 18:10 | Inpatient (IN) | payer BC, MEDICARE ==
[2018-06-04] MEDS ORDERED: HYDROmorphone 1 MG/ML Syringe IVPUSH ONE ×3 (18:46→21:17)
[2018-06-04] MEDS ORDERED: Lactated Ringers 1,000 ML IV ONE (18:46)
--- NOTE | 2018-06-04 18:52 | EDM.PDOC ---
ED HPI GENERAL MEDICAL PROBLEM - General Chief Complaint: Abdominal Pain Stated Complaint: MEDICAL Time Seen by Provider: 06/04/18 18:35 Source of Information: Reports: Patient, Old Records History Limitations: Reports: No Limitations - History of Present Illness INITIAL COMMENTS - FREE TEXT/NARRATIVE: 58 yo male who lives locally, but whose provider is in , presents with epigastric pain that began about noon today. He has a pHx of recurrent pancreatitis and this feels like that. The last episode was days ago and managed conservatively with pain meds and a clear liquid diet at home. Today was the first day of going off of clear liquids and now his pain is back. He says no one has figured out why he is getting this. He is not an abuser of ETOH. Has not taken any furosemide for about 6 mos. Onset: Today, Gradual Onset Date: 06/04/18 Onset Time: 12:00 Duration: Hour(s):, Getting Worse Location: Reports: Abdomen Quality: Reports: Ache, Burning Severity: Moderate Improves with: Reports: None Worsens with: Reports: Other (eating/time) Context: Reports: Other (see HPI) Associated Symptoms: Reports: Loss of Appetite. Denies: Fever/Chills, Nausea/ Vomiting Treatments SOCIAL WORK COORDINATOR: Reports: Other (see below) (none) Abdomen Pain Score (Numeric/FACES): 8 - Related Data Allergies Allergy/AdvReac Type Severity Reaction Status Date / Time Sulfa (Sulfonamide Allergy Intermediate Swollen Verified 06/04/18 18:24 Antibiotics) Eyes amoxicillin Allergy Fever Verified 06/04/18 18:24 Home Meds: Home Meds Albuterol [Ventolin HFA] 2 puff INH BID PRN 04/21/17 [History] Insulin Isophane NPH, Human [NovoLIN N] 10 unit SUBCUT TID 04/21/17 [History] Levothyroxine [Synthroid] 75 mcg PO ACBREAKFAST 04/21/17 [History] Lisinopril 40 mg PO DAILY 04/21/17 [History] Metoprolol Succinate 200 mg PO DAILY 04/21/17 [History] Omeprazole 20 mg PO DAILY 04/21/17 [History] Potassium Chloride 10 meq PO DAILY 04/21/17 [History] amLODIPine Besylate [Amlodipine Besylate] 10 mg PO DAILY 04/21/17 [History] atorvaSTATin Calcium [Atorvastatin Calcium] 40 mg PO BEDTIME 04/21/17 [History] metFORMIN HCl [Metformin HCl] 1,000 mg PO DAILY 04/21/17 [History] Aspirin [Halfprin] 81 mg PO DAILY 01/27/18 [History] Chromium Amino Acid Chelate [Chromium] 1,000 mcg PO DAILY 01/27/18 [History] Ciclopirox/Ure/Camph/Menth/Euc [Ciclopirox 8% Treatment Kit] 1 ml TOP ASDIRECTED 01/27/18 [History] Dextrose [Glucose] 4 gm PO ASDIRECTED PRN 01/27/18 [History] Ergocalciferol (Vitamin D2) [Vitamin D2] 50,000 unit PO DAILY 01/27/18 [History] Fluticasone/Vilanterol [Breo Ellipta 100-25 MCG Inhalation Kit] 1 puff IH ASDIRECTED 01/27/18 [History] Furosemide [Lasix] 20 mg PO BID 01/27/18 [History] Insulin Glargine,Hum.Rec.Anlog [Lantus Solostar] 20 unit SQ QAM 01/27/18 [ History] Insulin Isophane NPH, Human [HumuLIN N] 10 units SQ TID 01/27/18 [History] Tamsulosin [Flomax] 1 cap PO DAILY 01/27/18 [History] Past Medical History HEENT History: Reports: Impaired Vision, Sinusitis Cardiovascular History: Reports: CAD, High Cholesterol, Hypertension, [place] Respiratory History: Reports: Asthma, Other (See Below) Other Respiratory History: pneumonia Gastrointestinal History: Reports: Cholelithiasis, Colon Polyp, GERD, Pancreatitis Musculoskeletal History: Reports: Arthritis, Back Pain, Chronic, Fracture, Other (See Below) Other Musculoskeletal History: Nerve damage to back Neurological History: Reports: CVA, Neuropathy, Diabetic Psychiatric History: Reports: Depression Endocrine/Metabolic History: Reports: Diabetes, Type II, Hypothyroidism, Obesity /BMI 30+ - Infectious Disease History Infectious Disease History: Reports: Chicken Pox - Past Surgical History Head Surgeries/Procedures: Reports: None HEENT Surgical History: Reports: Tonsillectomy Cardiovascular Surgical History: Reports: None Respiratory Surgical History: Reports: None GI Surgical History: Reports: Appendectomy, Cholecystectomy, Colonoscopy, Hernia Repair/Other Endocrine Surgical History: Reports: None Neurological Surgical History: Reports: None Musculoskeletal Surgical History: Reports: Other (See Below) Dermatological Surgical History: Reports: None Social & Family History - Family History Cardiac: Reports: Hypertension : Reports: Renal Disease/Insufficiency Psychiatric: Reports: Depression Endocrine/Metabolic: Reports: Diabetes, type II Oncologic: Reports: Lung, Other (See Below) Other Oncologic Family History: Throat cancer - Tobacco Use Smoking Status *Q: Current Every Day Smoker Years of Tobacco use: 40 Packs/Tins Daily: 0.5 Used Tobacco, but Quit: No Second Hand Smoke Exposure: No - Caffeine Use Caffeine Use: Reports: Coffee, Soda - Recreational Drug Use Recreational Drug Use: No ED ROS GENERAL - Review of Systems Review Of Systems: See Below Constitutional: Reports: No Symptoms HEENT: Reports: No Symptoms Respiratory: Reports: No Symptoms Cardiovascular: Reports: No Symptoms Endocrine: Reports: No Symptoms GI/Abdominal: Reports: Abdominal Pain. Denies: Black Stool, Bloody Stool, Constipation, Diarrhea, Distension, Hematemesis, Hematochezia, Melena, Nausea, Vomiting : Reports: No Symptoms Musculoskeletal: Reports: No Symptoms Skin: Reports: No Symptoms Neurological: Reports: No Symptoms ED EXAM, GI/ABD - Physical Exam Exam: See Below Exam Limited By: No Limitations General Appearance: Alert, WD/WN, No Apparent Distress, Obese Eyes: Bilateral: Normal Appearance Ears: Normal External Exam, Normal Canal, Hearing Grossly Normal Nose: Normal Inspection, No Blood Throat/Mouth: Normal Inspection, Normal Lips, Normal Oropharynx, Normal Voice, No Airway Compromise Head: Atraumatic, Normocephalic Neck: Normal Inspection, Non-Tender Respiratory/Chest: No Respiratory Distress, Lungs Clear, Normal Breath Sounds, No Accessory Muscle Use Cardiovascular: Regular Rate, Rhythm, No Edema GI/Abdominal Exam: Soft, Tender (epigastrium), Abnormal Bowel Sounds (decreased) . No: Normal Bowel Sounds, Non-Tender, No Distention, Distended, Guarding, Rigid, Rebound Back Exam: Normal Inspection Extremities: Normal Inspection, Normal Range of Motion, Non-Tender, No Pedal Edema Neurological: Alert, Oriented, CN II-XII Intact, Normal Cognition, No Motor/ Sensory Deficits Psychiatric: Normal Affect, Normal Mood Skin Exam: Warm, Dry, Intact, Normal Color, No Rash Course - Vital Signs Text/Narrative:: Dr. Rod called @ 1930h Last Recorded V/S: Last Vital Signs Temp 36.6 C 06/05/18 03:00 Pulse 71 06/05/18 03:00 Resp 20 06/05/18 03:00 BP 125/84 06/05/18 03:00 Pulse Ox 94 L 06/05/18 03:00 - Orders/Labs/Meds Orders: Medication Orders Acetaminophen (Tylenol) 650 mg PO Q4H PRN PRN Reason: Pain (Mild 1-3)/fever Last Admin: 06/05/18 01:10 Dose: 650 mg Albuterol (Proventil Neb Soln) 2.5 mg NEB Q4H PRN PRN Reason: Shortness Of Breath/wheezing Amlodipine Besylate (Norvasc) 10 mg PO DAILY [facility] Aspirin (Halfprin) 81 mg PO DAILY [facility] Atorvastatin Calcium (Lipitor) 40 mg PO BEDTIME [facility] Last Admin: 06/04/18 23:05 Dose: 40 mg Dextrose (Glutose 15) 15 gm PO ONETIME PRN PRN Reason: Hypoglycemia Dextrose/Water (Dextrose 50% In Water) 50 ml IV ONETIME PRN PRN Reason: Hypoglycemia Enoxaparin Sodium (Lovenox) 40 mg SUBCUT BEDTIME [facility] Last Admin: 06/04/18 23:04 Dose: 40 mg Hydromorphone HCl (Dilaudid) 0.5 mg IVPUSH Q2H PRN PRN Reason: Pain (severe 7-10) Lactated Ringer's (Ringers, Lactated) 1,000 mls @ 125 mls/hr IV ASDIRECTED [facility] Last Admin: 06/04/18 23:10 Dose: 125 mls/hr Insulin Glargine (Lantus Solostar) 20 units SUBCUT QAM [facility] Insulin Human Lispro (Humalog) 0 unit SUBCUT QIDACANDBED [facility]; Protocol Levothyroxine Sodium (Levothyroxine) 75 mcg PO ACBREAKFAST [facility] Lisinopril (Prinivil) 40 mg PO DAILY [facility] Melatonin (Melatonin) 9 mg PO BEDTIME PRN PRN Reason: Insomnia Last Admin: 06/04/18 23:21 Dose: 9 mg Metoprolol Succinate (Toprol Xl) 200 mg PO DAILY [facility] Ondansetron HCl (Zofran) 4 mg IV Q4H PRN PRN Reason: Nausea/Vomiting Oxycodone HCl (Oxycodone) 5 mg PO Q4H PRN PRN Reason: Pain (moderate 4-6) Last Admin: 06/04/18 23:04 Dose: 5 mg Pantoprazole Sodium (Protonix) 40 mg PO ACBREAKFAST [facility] Pneumococcal Polyvalent Vaccine (Pneumovax 23) 0.5 ml IM .ONCE ONE Stop: 06/05/18 14:01 Polyethylene Glycol (Miralax) 17 gm PO DAILY PRN PRN Reason: Constipation Fluticasone/Salmeterol (Fluticasone-Salmeterol 113-14 Mcg Powder Inh) 1 puff INH BIDRT [facility] Sodium Chloride (Saline Flush) 10 ml FLUSH ASDIRECTED PRN PRN Reason: Keep Vein Open Tamsulosin HCl (Flomax) 0.4 mg PO DAILY [facility] Labs: Laboratory Tests 06/04/18 06/04/18 06/04/18 Range/Units 18:58 18:58 18:58 WBC 16.1 H (4.5-11.0) K/uL RBC 5.49 (4.30-5.90) M/uL Hgb 16.6 H (12.0-15.0) g/dL Hct 49.8 (40.0-54.0) % MCV 91 (80-98) fL MCH 30 (27-31) pg MCHC 33 (32-36) % Plt Count 261 (150-400) K/uL Sodium 136 L (140-148) mmol/L Potassium 3.8 (3.6-5.2) mmol/L Chloride 101 (100-108) mmol/L Carbon Dioxide 24 (21-32) mmol/L Anion Gap 14.8 H (5.0-14.0) mmol/L BUN 18 (7-18) mg/dL Creatinine 1.1 (0.8-1.3) mg/dL Est Cr Clr Drug Dosing 78.91 mL/min Estimated GFR (MDRD) > 60 (>60) Glucose 297 H (74-106) mg/dL Calcium 8.9 (8.5-10.1) mg/dL Total Bilirubin 0.4 D (0.2-1.0) mg/dL AST 15 (15-37) U/L ALT 16 (12-78) U/L Alkaline Phosphatase 117 H (46-116) U/L Total Protein 7.4 (6.4-8.2) g/dL Albumin 3.5 (3.4-5.0) g/dL Globulin 3.9 H (2.3-3.5) g/dL Albumin/Globulin Ratio 0.9 L (1.2-2.2) Lipase 75629 H (73-393) U/L Meds: Medications Generic Name Dose Route Start Last Admin Trade Name Freq PRN Reason Stop Dose Admin Acetaminophen 650 mg 06/04/18 21:49 06/05/18 01:10 Tylenol PO 650 mg Q4H PRN Administration Pain (Mild 1-3)/fever Albuterol 2.5 mg 06/04/18 21:49 Proventil Neb Soln NEB Q4H PRN Shortness Of Breath/wheezing Amlodipine Besylate 10 mg 06/05/18 09:00 Norvasc PO DAILY [facility] Aspirin 81 mg 06/05/18 09:00 Halfprin PO DAILY [facility] Atorvastatin Calcium 40 mg 06/04/18 21:49 06/04/18 23:05 Lipitor PO 40 mg BEDTIME [facility] Administration Dextrose 15 gm 06/04/18 21:49 Glutose 15 PO ONETIME PRN Hypoglycemia Dextrose/Water 50 ml 06/04/18 21:49 Dextrose 50% In Water IV ONETIME PRN Hypoglycemia Enoxaparin Sodium 40 mg 06/04/18 21:49 06/04/18 23:04 Lovenox SUBCUT 40 mg BEDTIME [facility] Administration Hydromorphone HCl 0.5 mg 06/04/18 21:49 Dilaudid IVPUSH Q2H PRN Pain (severe 7-10) Lactated Ringer's 1,000 mls @ 125 mls/hr 06/04/18 21:49 06/04/18 23:10 Ringers, Lactated IV 125 mls/hr ASDIRECTED [facility] Administration Insulin Glargine 20 units 06/05/18 09:00 Lantus Solostar SUBCUT QAM [facility] Insulin Human Lispro 0 unit 06/05/18 07:00 Humalog SUBCUT QIDACANDBED [facility] Protocol Levothyroxine Sodium 75 mcg 06/05/18 07:30 Levothyroxine PO ACBREAKFAST [facility] Lisinopril 40 mg 06/05/18 09:00 Prinivil PO DAILY [facility] Melatonin 9 mg 06/04/18 22:53 06/04/18 23:21 Melatonin PO 9 mg BEDTIME PRN Administration Insomnia Metoprolol Succinate 200 mg 06/05/18 09:00 Toprol Xl PO DAILY [facility] Ondansetron HCl 4 mg 06/04/18 21:49 Zofran IV Q4H PRN Nausea/Vomiting Oxycodone HCl 5 mg 06/04/18 21:49 06/04/18 23:04 Oxycodone PO 5 mg Q4H PRN Administration Pain (moderate 4-6) Pantoprazole Sodium 40 mg 06/05/18 07:30 Protonix PO ACBREAKFAST [facility] Pneumococcal Polyvalent Vaccine 0.5 ml 06/05/18 14:00 Pneumovax 23 IM 06/05/18 14:01 .ONCE ONE Polyethylene Glycol 17 gm 06/04/18 21:49 Miralax PO DAILY PRN Constipation Fluticasone/Salmeterol 1 puff 06/05/18 07:00 Fluticasone-Salmeterol 113-14 Mcg Powder Inh INH BIDRT [facility] Sodium Chloride 10 ml 06/04/18 21:49 Saline Flush FLUSH ASDIRECTED PRN Keep Vein Open Tamsulosin HCl 0.4 mg 06/05/18 09:00 Flomax PO DAILY [facility] Discontinued Medications Generic Name Dose Route Start Last Admin Trade Name Freq PRN Reason Stop Dose Admin Hydromorphone HCl 1 mg 06/04/18 18:46 06/04/18 18:58 Dilaudid IVPUSH 06/04/18 18:47 1 mg ONETIME ONE Administration Hydromorphone HCl 1 mg 06/04/18 19:32 06/04/18 19:46 Dilaudid IVPUSH 06/04/18 19:33 1 mg ONETIME ONE Administration Hydromorphone HCl 1 mg 06/04/18 21:17 06/04/18 21:23 Dilaudid IVPUSH 06/04/18 21:18 1 mg ONETIME ONE Administration Lactated Ringer's 1,000 mls @ 1,000 mls/hr 06/04/18 18:46 06/04/18 18:58 Ringers, Lactated IV 06/04/18 19:45 1,000 mls/hr BOLUS ONE Administration Sodium Chloride 100 mls @ 3 mls/sec 06/04/18 19:45 06/04/18 20:11 Normal Saline IV 3 mls/sec ASDIRECTED [facility] Administration Iopamidol 100 ml 06/04/18 19:45 06/04/18 20:11 Isovue-300 (61%) IV 100 ml . DIRECTED [facility] Administration Non-Formulary Medication 1 puff 06/04/18 21:49 Fluticasone/Vilanterol IH ASDIRECTED [facility] Ondansetron HCl 4 mg 06/04/18 19:32 06/04/18 19:46 Zofran IVPUSH 06/04/18 19:33 4 mg ONETIME ONE Administration - Radiology Interpretation Free Text/Narrative:: CT abd/pelvis- CT Results Date: 06/04/18 Departure - Departure Time of Disposition: 21:20 Disposition: Admitted As Inpatient 67 Condition: Fair Clinical Impression: Acute pancreatitis Qualifiers: Pancreatitis type: unspecified pancreatitis type Acute pancreatitis complication: unspecified Qualified Code(s): K85.90 - Acute pancreatitis without necrosis or infection, unspecified - Discharge Information
[2018-06-04] MEDS ORDERED: Ondansetron 4 MG/2 ML SDV IVPUSH ONE (19:32)
[2018-06-04] MEDS ORDERED: Sodium Chloride 0.9% 100 ML IV SCH (19:45)
[2018-06-04] MEDS ORDERED: Iopamidol 612 MG/ML 100 ML Bottle IV SCH (19:45)
--- NOTE | 2018-06-04 20:57 | PCM.HP ---
H&P History of Present Illness - General Date of Service: 06/04/18 Admit Problem/Dx: Admission Diagnosis/Problem Admission Diagnosis/Problem Pancreatitis Source of Information: Patient, Old Records, Provider, RN Notes Reviewed History Limitations: Reports: No Limitations - History of Present Illness Initial Comments - Free Text/Narative: Mr. Small is a 58-year-old gentleman who was admitted through the emergency department with abdominal pain secondary to pancreatitis. He's had at least 3 previous episodes of pancreatitis, with no specific etiology identified thus far. He was in the emergency department earlier this week and found to have a mild elevation in lipase level associated with abdominal pain. Admission was recommended that time, patient decided to go home and try and stay on a clear liquid diet. Over the past few days he is remained on a clear liquid diet with improvement of the pain but not total resolution. Late morning today he did have a submarine sandwich, after approximate 2 hours began to experience severe pain. Pain is located in the supraumbilical area and does radiate to the back, described as very intense and severe. He's felt feverish and is experienced some chills, denies nausea and vomiting. Denies any recent alcohol use, liver studies from ED visit are all within normal range or only mildly elevated. Lipase level severely elevated at 12,000, CT of the abdomen is pending at the time of this dictation. Abdomen Pain Score (Numeric/FACES): 8 - Related Data Allergies/Adverse Reactions: Allergies Allergy/AdvReac Type Severity Reaction Status Date / Time Sulfa (Sulfonamide Allergy Intermediate Swollen Verified 06/04/18 18:24 Antibiotics) Eyes amoxicillin Allergy Fever Verified 06/04/18 18:24 Home Medications: Home Meds Albuterol [Ventolin HFA] 2 puff INH BID PRN 04/21/17 [History] Insulin Isophane NPH, Human [NovoLIN N] 10 unit SUBCUT TID 04/21/17 [History] Levothyroxine [Synthroid] 75 mcg PO ACBREAKFAST 04/21/17 [History] Lisinopril 40 mg PO DAILY 04/21/17 [History] Metoprolol Succinate 200 mg PO DAILY 04/21/17 [History] Omeprazole 20 mg PO DAILY 04/21/17 [History] Potassium Chloride 10 meq PO DAILY 04/21/17 [History] amLODIPine Besylate [Amlodipine Besylate] 10 mg PO DAILY 04/21/17 [History] atorvaSTATin Calcium [Atorvastatin Calcium] 40 mg PO BEDTIME 04/21/17 [History] metFORMIN HCl [Metformin HCl] 1,000 mg PO DAILY 04/21/17 [History] Aspirin [Halfprin] 81 mg PO DAILY 01/27/18 [History] Chromium Amino Acid Chelate [Chromium] 1,000 mcg PO DAILY 01/27/18 [History] Ciclopirox/Ure/Camph/Menth/Euc [Ciclopirox 8% Treatment Kit] 1 ml TOP ASDIRECTED 01/27/18 [History] Dextrose [Glucose] 4 gm PO ASDIRECTED PRN 01/27/18 [History] Ergocalciferol (Vitamin D2) [Vitamin D2] 50,000 unit PO DAILY 01/27/18 [History] Fluticasone/Vilanterol [Breo Ellipta 100-25 MCG Inhalation Kit] 1 puff IH ASDIRECTED 01/27/18 [History] Furosemide [Lasix] 20 mg PO BID 01/27/18 [History] Insulin Glargine,Hum.Rec.Anlog [Lantus Solostar] 20 unit SQ QAM 01/27/18 [ History] Insulin Isophane NPH, Human [HumuLIN N] 10 units SQ TID 01/27/18 [History] Tamsulosin [Flomax] 1 cap PO DAILY 01/27/18 [History] Past Medical History HEENT History: Reports: Impaired Vision, Sinusitis Cardiovascular History: Reports: CAD, High Cholesterol, Hypertension, [place] Respiratory History: Reports: Asthma, Other (See Below) Other Respiratory History: pneumonia Gastrointestinal History: Reports: Cholelithiasis, Colon Polyp, GERD, Pancreatitis Musculoskeletal History: Reports: Arthritis, Back Pain, Chronic, Fracture, Other (See Below) Other Musculoskeletal History: Nerve damage to back Neurological History: Reports: CVA, Neuropathy, Diabetic Psychiatric History: Reports: Depression Endocrine/Metabolic History: Reports: Diabetes, Type II, Hypothyroidism, Obesity /BMI 30+ - Infectious Disease History Infectious Disease History: Reports: Chicken Pox - Past Surgical History Head Surgeries/Procedures: Reports: None HEENT Surgical History: Reports: Tonsillectomy Cardiovascular Surgical History: Reports: None Respiratory Surgical History: Reports: None GI Surgical History: Reports: Appendectomy, Cholecystectomy, Colonoscopy, Hernia Repair/Other Endocrine Surgical History: Reports: None Neurological Surgical History: Reports: None Musculoskeletal Surgical History: Reports: Other (See Below) Dermatological Surgical History: Reports: None Social & Family History - Family History Cardiac: Reports: Hypertension : Reports: Renal Disease/Insufficiency Psychiatric: Reports: Depression Endocrine/Metabolic: Reports: Diabetes, type II Oncologic: Reports: Lung, Other (See Below) Other Oncologic Family History: Throat cancer - Tobacco Use Smoking Status *Q: Current Every Day Smoker Years of Tobacco use: 40 Packs/Tins Daily: 0.5 Used Tobacco, but Quit: No Second Hand Smoke Exposure: No - Caffeine Use Caffeine Use: Reports: Coffee, Soda - Recreational Drug Use Recreational Drug Use: No H&P Review of Systems - Review of Systems: Review Of Systems: See Below General: Reports: Fever, Chills, Diaphoresis. Denies: Weakness HEENT: Reports: No Symptoms Pulmonary: Reports: No Symptoms Cardiovascular: Reports: No Symptoms Gastrointestinal: Reports: Abdominal Pain, Distension. Denies: Black Stool, Bloody Stool, Constipation, Diarrhea, Difficulty Swallowing, Nausea, Vomiting Genitourinary: Reports: No Symptoms Musculoskeletal: Reports: No Symptoms Skin: Reports: No Symptoms Psychiatric: Reports: No Symptoms Neurological: Reports: No Symptoms Hematologic/Lymphatic: Reports: No Symptoms Immunologic: Reports: No Symptoms Exam - Exam Exam: See Below - Vital Signs Vital Signs: Last Vital Signs Temp 97.2 F 06/04/18 18:27 Pulse 88 06/04/18 18:32 Resp 16 06/04/18 18:32 BP 158/92 H 06/04/18 18:32 Pulse Ox 95 06/04/18 18:32 Weight: 260 lb 9.382 oz - Exam Quality Assessment: DVT Prophylaxis General: Alert, Oriented, Cooperative, Moderate Distress HEENT: Conjunctiva Clear, Hearing Intact, Mucosa Moist & [place], Normal Nasal Septum, Posterior Pharynx Clear, Pupils Equal Neck: Supple, Trachea Midline, +2 Carotid Pulse wo Bruit Lungs: Clear to Auscultation, Normal Respiratory Effort, Decreased Breath Sounds Cardiovascular: Regular Rate, Regular Rhythm, Normal S1, Normal S2. No: Systolic Murmur, Diastolic Murmur GI/Abdominal Exam: Soft, No Organomegaly, Distended, Tender. No: Guarding, Rigid, Rebound Extremities: Non-Tender, No Pedal Edema Skin: Warm, Dry, Intact Neurological: Cranial Nerves Intact, Strength Equal Bilateral, Normal Speech, Normal Tone, Sensation Intact. No: Focal Deficit Neuro Extensive - Mental Status: Alert, Oriented x3, Normal Mood/Affect, Normal Cognition, Memory Intact - Patient Data Lab Results Last 24 hrs: Laboratory Results - last 24 hr 06/04/18 06/04/18 06/04/18 Range/Units 18:58 18:58 18:58 WBC 16.1 H (4.5-11.0) K/uL RBC 5.49 (4.30-5.90) M/uL Hgb 16.6 H (12.0-15.0) g/dL Hct 49.8 (40.0-54.0) % MCV 91 (80-98) fL MCH 30 (27-31) pg MCHC 33 (32-36) % Plt Count 261 (150-400) K/uL Sodium 136 L (140-148) mmol/L Potassium 3.8 (3.6-5.2) mmol/L Chloride 101 (100-108) mmol/L Carbon Dioxide 24 (21-32) mmol/L Anion Gap 14.8 H (5.0-14.0) mmol/L BUN 18 (7-18) mg/dL Creatinine 1.1 (0.8-1.3) mg/dL Est Cr Clr Drug Dosing 78.91 mL/min Estimated GFR (MDRD) > 60 (>60) Glucose 297 H (74-106) mg/dL Calcium 8.9 (8.5-10.1) mg/dL Total Bilirubin 0.4 D (0.2-1.0) mg/dL AST 15 (15-37) U/L ALT 16 (12-78) U/L Alkaline Phosphatase 117 H (46-116) U/L Total Protein 7.4 (6.4-8.2) g/dL Albumin 3.5 (3.4-5.0) g/dL Globulin 3.9 H (2.3-3.5) g/dL Albumin/Globulin Ratio 0.9 L (1.2-2.2) Lipase 58729 H (73-393) U/L Result Diagrams: 06/04/18 18:58 06/04/18 18:58 *Q Meaningful Use (ADM) - VTE Risk Assess *Q Each Risk Factor Represents 1 Point: Age 41 - 59 years, Obesity ( BMI > 25 kg/m2 ), Abnormal Pulmonary Function (COPD) Total Score 1 Point Risk Factors: 3 Each Risk Factor Represents 2 Points: None Total Score 2 Point Risk Factors: 0 Each Risk Factor Represents 3 Points: None Total Score 3 Point Risk Factors: 0 Each Risk Factor Represents 5 Points: None Total Score 5 Point Risk Factors: 0 Venous Thromboembolism Risk Factor Score *Q: 3 Problem List Initiated/Reviewed/Updated: Yes Orders Last 24hrs: Active Orders 24 hr Category Date Time Status Patient Status Manage Transfer [TRANSFER] Routine ADT 06/04/18 20:18 Ordered Abdomen Pelvis w Cont [CT] Stat Exams 06/04/18 19:30 Taken Iopamidol [Isovue-300 (61%)] Med 06/04/18 19:45 Active 100 ml IV . DIRECTED Sodium Chloride 0.9% [Normal Saline] 100 ml Med 06/04/18 19:45 Active IV ASDIRECTED Resuscitation Status Routine Resus Stat 06/04/18 20:21 Ordered Medication Orders Sodium Chloride (Normal Saline) 100 mls @ 3 mls/sec IV ASDIRECTED [facility] Last Admin: 06/04/18 20:11 Dose: 3 mls/sec Iopamidol (Isovue-300 (61%)) 100 ml IV . DIRECTED [facility] Last Admin: 06/04/18 20:11 Dose: 100 ml Assessment/Plan Comment:: ASSESSMENT AND PLAN ACUTE PANCREATITIS-mild elevation in lipase level earlier this week associated with more mild pain. Remained on a clear liquid diet until today when he had something more solid to eat. Relatively quickly pain became very severe. Lipase level markedly elevated at 12,000. -Clear liquid diet -IV fluids for hydration -Recheck lipase level in a.m. -Pain and nausea medication as needed -CT scan abdomen pelvis pending -Lipid profile in a.m. TYPE 2 DIABETES MELLITUS -4 times a day glucometers -Hold metformin and mealtime insulin -Continue usual dose of long-acting insulin -Low-dose sliding scale NovoLog MAINTENANCE ISSUES -DVT prophylaxis; Lovenox 40 mg subcutaneous daily -GI prophylaxis; continue outpatient PPI therapy -Collazo catheter; not indicated -Nutrition; clear liquid diet -Nicotine dependence; not required CODE STATUS-FULL CODE ADMISSION STATUS-patient will be admitted to inpatient status, expect at least a 2 night hospital stay for evaluation and management of problems as outlined above. At the time of this admission I do not reasonably expected evaluation and management of this problem will require more than a 96 hour hospital stay. DISPOSITION-anticipate discharge to home after the hospital stay. PRIMARY CARE PROVIDER-
--- NOTE | 2018-06-04 21:35 | CRLCT ---
INDICATION: Acute pancreatitis TECHNIQUE: CT abdomen and pelvis acquired with IV contrast. COMPARISON: CT 05/29/2018, 01/27/2018 FINDINGS: Lower chest: Mild bilateral dependent opacities. Liver: Unremarkable. Spleen: Unremarkable. Pancreas: There is peripancreatic inflammatory fat stranding consistent with pancreatitis. No pseudocyst. No mass identified. No ductal dilatation. Gallbladder and bile ducts: Cholecystectomy. No biliary ductal dilatation. Kidneys: Kidneys are stable in appearance. Nephrograms are symmetric. No hydronephrosis. Adrenal glands: Stable low-density left adrenal nodule. Right adrenal gland is normal. GI tract: Tiny duodenal diverticulum noted. No acute bowel abnormality. Minimal colonic diverticulosis. Vascular structures: No sign of abdominal aortic aneurysm. 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 Mild atherosclerotic calcification. Circumaortic left renal vein noted. Lymph nodes: Stable enlarged lymph nodes near the head and neck of the pancreas. No other lymphadenopathy. Miscellaneous: No ascites. No free air. Pelvic Organs: Unremarkable. Bones: No acute abnormality. No suspicious bone lesion. IMPRESSION: 1. Inflammatory fat stranding adjacent to the pancreas consistent with pancreatitis. No pseudocyst formation. 2. Prominent and mildly enlarged peripancreatic lymph nodes are stable and likely reactive. 3. Minimal colonic diverticulosis. 4. Stable left adrenal nodule. Dictated by Anival Scott MD @ 06/04/2018 9:34:27 PM Dictated by: Anival Scott MD @ 06/04/2018 21:34:40 (Electronically Signed)
[2018-06-04] MEDS ORDERED: Glucose Gel 15 GM in 37.5 GM Tube PO PRN (21:49)
[2018-06-04] MEDS ORDERED: 50% Dextrose in Water 50 ML Syringe IV PRN (21:49)
[2018-06-04] MEDS ORDERED: Polyethylene Glycol 3350 Powder 17 GM Packet PO PRN (21:49)
[2018-06-04] MEDS ORDERED: Ondansetron 4 MG/2 ML SDV IV PRN (21:49)
[2018-06-04] MEDS ORDERED: Albuterol 0.083% 2.5 MG/3 ML Neb Soln NEB PRN (21:49)
[2018-06-04] MEDS ORDERED: Non-Formulary Medication 1 Each (Fluticasone/Vilanterol 1 PUFF) IH SCH (21:49)
[2018-06-04] MEDS ORDERED: Acetaminophen 325 MG Tab PO PRN (21:49)
[2018-06-04] MEDS ORDERED: HYDROmorphone 0.5 MG/0.5 ML Syringe IVPUSH PRN (21:49)
[2018-06-04] MEDS ORDERED: Sodium Chloride 0.9% 10 ML Syringe FLUSH PRN (21:49)
[2018-06-04] MEDS: oxyCODONE 5 MG Tab PO PRN (23:04)
[2018-06-04] MEDS: Enoxaparin 40 MG/0.4 ML Syringe SUBCUT SCH (23:04)
[2018-06-04] MEDS: atorvaSTATin 20 MG Tab PO SCH (23:05)
[2018-06-04] MEDS: Lactated Ringers 1,000 ML IV SCH (23:10)
[2018-06-04] MEDS: Melatonin 3 MG Tab PO PRN (23:21)
[2018-06-05] MEDS: oxyCODONE 5 MG Tab PO PRN ×3 (04:42→21:48)
[2018-06-05] MEDS: Lactated Ringers 1,000 ML IV SCH (04:43)
[2018-06-05] MEDS ORDERED: Fluticasone-Salmeterol 113-14 MCG Powder Inhalant INH SCH (07:00)
[2018-06-05] MEDS: Fluticasone-Salmeterol 113-14 MCG Powder Inhalant INH SCH ×2 (07:54→21:41)
[2018-06-05] MEDS ORDERED: Non-Formulary Medication 1 Each (Fluticasone/Vilanterol 1 PUFF) IH SCH (09:00)
[2018-06-05] MEDS ORDERED: Non-Formulary Medication 1 Each (Omeprazole [Omeprazole] 20 MG) PO SCH (09:00)
[2018-06-05] MEDS ORDERED: Magnesium Sulfate/Water 2 GM in Premix Bag 1 BAG IV ONE (09:00)
[2018-06-05] MEDS: Levothyroxine 25 MCG Tab PO SCH (09:34)
[2018-06-05] MEDS: Magnesium Oxide 400 MG Tab PO SCH ×2 (09:35→21:41)
[2018-06-05] MEDS: amLODIPine 10 MG Tab PO SCH (09:35)
[2018-06-05] MEDS: Aspirin 81 MG Tab.EC PO SCH (09:35)
[2018-06-05] MEDS: Pantoprazole 40 MG Tab.CR PO SCH (09:36)
[2018-06-05] MEDS: Tamsulosin 0.4 MG Cap.ER PO SCH (09:36)
[2018-06-05] MEDS: Lisinopril 20 MG Tab PO SCH (09:37)
[2018-06-05] MEDS: Metoprolol Succinate 50 MG Tab.ER PO SCH (09:38)
[2018-06-05] MEDS: Insulin Glargine,Human Rec. Analog 100 Units/ML 3 ML Pen SUBCUT SCH (09:44)
[2018-06-05] MEDS: Insulin Lispro 100 Unit/ML 3 ML KwikPen SUBCUT SCH ×4 (09:45→21:43)
--- NOTE | 2018-06-05 11:09 | PCM.PN ---
- General Info Date of Service: 06/05/18 Subjective Update: Mr. Small is improved since admission with less abdominal pain. Lipase level has improved to 2400, from 12,000 on admission. Vital signs have remained stable and he has been afebrile, white blood cell count has normalized. Functional Status: Reports: Pain Controlled, Tolerating Diet, Ambulating, Urinating - Review of Systems General: Reports: Weakness. Denies: Fever, Chills Pulmonary: Reports: No Symptoms Cardiovascular: Reports: No Symptoms Gastrointestinal: Reports: Abdominal Pain, Decreased Appetite. Denies: Constipation, Diarrhea, Difficulty Swallowing, Melena, Nausea - Patient Data Vitals - Most Recent: Last Vital Signs Temp 98.9 F 06/05/18 07:21 Pulse 79 06/05/18 09:38 Resp 18 06/05/18 07:21 BP 154/88 H 06/05/18 09:38 Pulse Ox 96 06/05/18 07:21 Weight - Most Recent: 259 lb 6.4 oz I&O - Last 24 Hours: Intake & Output 06/04/18 06/05/18 06/05/18 22:59 06:59 14:59 Intake Total 1381 50 Output Total 1600 900 Balance -219 -850 Lab Results Last 24 Hours: Laboratory Results - last 24 hr 06/04/18 06/04/18 06/04/18 Range/Units 18:58 18:58 18:58 WBC 16.1 H (4.5-11.0) K/uL RBC 5.49 (4.30-5.90) M/uL Hgb 16.6 H (12.0-15.0) g/dL Hct 49.8 (40.0-54.0) % MCV 91 (80-98) fL MCH 30 (27-31) pg MCHC 33 (32-36) % Plt Count 261 (150-400) K/uL Neut % (Auto) (36-66) % Lymph % (Auto) (24-44) % [place] % (Auto) (2-6) % Eos % (Auto) (2-4) % Baso % (Auto) (0-1) % Sodium 136 L (140-148) mmol/L Potassium 3.8 (3.6-5.2) mmol/L Chloride 101 (100-108) mmol/L Carbon Dioxide 24 (21-32) mmol/L Anion Gap 14.8 H (5.0-14.0) mmol/L BUN 18 (7-18) mg/dL Creatinine 1.1 (0.8-1.3) mg/dL Est Cr Clr Drug Dosing 78.91 mL/min Estimated GFR (MDRD) > 60 (>60) Glucose 297 H (74-106) mg/dL Calcium 8.9 (8.5-10.1) mg/dL Magnesium (1.8-2.4) mg/dL Total Bilirubin 0.4 D (0.2-1.0) mg/dL AST 15 (15-37) U/L ALT 16 (12-78) U/L Alkaline Phosphatase 117 H (46-116) U/L Total Protein 7.4 (6.4-8.2) g/dL Albumin 3.5 (3.4-5.0) g/dL Globulin 3.9 H (2.3-3.5) g/dL Albumin/Globulin Ratio 0.9 L (1.2-2.2) Triglycerides (15-150) mg/dL Cholesterol (0-200) mg/dL LDL Cholesterol Direct (0-100) mg/dL HDL Cholesterol (40-60) mg/dL Lipase 02563 H (73-393) U/L 06/05/18 06/05/18 06/05/18 Range/Units 04:27 04:27 04:27 WBC 9.3 (4.5-11.0) K/uL RBC 4.85 (4.30-5.90) M/uL Hgb 15.2 H (12.0-15.0) g/dL Hct 45.1 (40.0-54.0) % MCV 93 (80-98) fL MCH 31 (27-31) pg MCHC 34 (32-36) % Plt Count 227 (150-400) K/uL Neut % (Auto) 60 (36-66) % Lymph % (Auto) 28 (24-44) % [place] % (Auto) 11 H (2-6) % Eos % (Auto) 1 L (2-4) % Baso % (Auto) 0 (0-1) % Sodium 138 L (140-148) mmol/L Potassium 3.9 (3.6-5.2) mmol/L Chloride 103 (100-108) mmol/L Carbon Dioxide 28 (21-32) mmol/L Anion Gap 10.9 (5.0-14.0) mmol/L BUN 14 (7-18) mg/dL Creatinine 1.0 (0.8-1.3) mg/dL Est Cr Clr Drug Dosing 86.80 mL/min Estimated GFR (MDRD) > 60 (>60) Glucose 134 H (74-106) mg/dL Calcium 8.7 (8.5-10.1) mg/dL Magnesium 1.7 L (1.8-2.4) mg/dL Total Bilirubin 0.4 (0.2-1.0) mg/dL AST 29 D (15-37) U/L ALT 24 (12-78) U/L Alkaline Phosphatase 112 (46-116) U/L Total Protein 6.7 (6.4-8.2) g/dL Albumin 3.1 L (3.4-5.0) g/dL Globulin 3.6 H (2.3-3.5) g/dL Albumin/Globulin Ratio 0.9 L (1.2-2.2) Triglycerides 302 H (15-150) mg/dL Cholesterol 134 (0-200) mg/dL LDL Cholesterol Direct 68 (0-100) mg/dL HDL Cholesterol 28 L (40-60) mg/dL Lipase 2490 H (73-393) U/L Med Orders - Current: Current Medications Acetaminophen (Tylenol) 650 mg PO Q4H PRN PRN Reason: Pain (Mild 1-3)/fever Last Admin: 06/05/18 01:10 Dose: 650 mg Albuterol (Proventil Neb Soln) 2.5 mg NEB Q4H PRN PRN Reason: Shortness Of Breath/wheezing Amlodipine Besylate (Norvasc) 10 mg PO DAILY [facility] Last Admin: 06/05/18 09:35 Dose: 10 mg Aspirin (Halfprin) 81 mg PO DAILY [facility] Last Admin: 06/05/18 09:35 Dose: 81 mg Atorvastatin Calcium (Lipitor) 40 mg PO BEDTIME [facility] Last Admin: 06/04/18 23:05 Dose: 40 mg Dextrose (Glutose 15) 15 gm PO ONETIME PRN PRN Reason: Hypoglycemia Dextrose/Water (Dextrose 50% In Water) 50 ml IV ONETIME PRN PRN Reason: Hypoglycemia Enoxaparin Sodium (Lovenox) 40 mg SUBCUT BEDTIME [facility] Last Admin: 06/04/18 23:04 Dose: 40 mg Hydromorphone HCl (Dilaudid) 0.5 mg IVPUSH Q2H PRN PRN Reason: Pain (severe 7-10) Insulin Glargine (Lantus Solostar) 20 units SUBCUT QAM [facility] Last Admin: 06/05/18 09:44 Dose: 20 units Insulin Human Lispro (Humalog) 0 unit SUBCUT QIDACANDBED [facility]; Protocol Last Admin: 06/05/18 09:45 Dose: 1 units Levothyroxine Sodium (Levothyroxine) 75 mcg PO ACBREAKFAST [facility] Last Admin: 06/05/18 09:34 Dose: 75 mcg Lisinopril (Prinivil) 40 mg PO DAILY [facility] Last Admin: 06/05/18 09:37 Dose: 40 mg Magnesium Oxide (Magnesium Oxide) 400 mg PO BID [facility] Last Admin: 06/05/18 09:35 Dose: 400 mg Melatonin (Melatonin) 9 mg PO BEDTIME PRN PRN Reason: Insomnia Last Admin: 06/04/18 23:21 Dose: 9 mg Metoprolol Succinate (Toprol Xl) 200 mg PO DAILY [facility] Last Admin: 06/05/18 09:38 Dose: 200 mg Ondansetron HCl (Zofran) 4 mg IV Q4H PRN PRN Reason: Nausea/Vomiting Oxycodone HCl (Oxycodone) 5 mg PO Q4H PRN PRN Reason: Pain (moderate 4-6) Last Admin: 06/05/18 09:54 Dose: 5 mg Pantoprazole Sodium (Protonix) 40 mg PO ACBREAKFAST [facility] Last Admin: 06/05/18 09:36 Dose: 40 mg Pneumococcal Polyvalent Vaccine (Pneumovax 23) 0.5 ml IM .ONCE ONE Stop: 06/05/18 14:01 Polyethylene Glycol (Miralax) 17 gm PO DAILY PRN PRN Reason: Constipation Fluticasone/Salmeterol (Fluticasone-Salmeterol 113-14 Mcg Powder Inh) 1 puff INH BIDRT [facility] Last Admin: 06/05/18 07:54 Dose: 1 puff Sodium Chloride (Saline Flush) 10 ml FLUSH ASDIRECTED PRN PRN Reason: Keep Vein Open Tamsulosin HCl (Flomax) 0.4 mg PO DAILY [facility] Last Admin: 06/05/18 09:36 Dose: 0.4 mg Discontinued Medications Hydromorphone HCl (Dilaudid) 1 mg IVPUSH ONETIME ONE Stop: 06/04/18 18:47 Last Admin: 06/04/18 18:58 Dose: 1 mg Hydromorphone HCl (Dilaudid) 1 mg IVPUSH ONETIME ONE Stop: 06/04/18 19:33 Last Admin: 06/04/18 19:46 Dose: 1 mg Hydromorphone HCl (Dilaudid) 1 mg IVPUSH ONETIME ONE Stop: 06/04/18 21:18 Last Admin: 06/04/18 21:23 Dose: 1 mg Lactated Ringer's (Ringers, Lactated) 1,000 mls @ 1,000 mls/hr IV BOLUS ONE Stop: 06/04/18 19:45 Last Admin: 06/04/18 18:58 Dose: 1,000 mls/hr Sodium Chloride (Normal Saline) 100 mls @ 3 mls/sec IV ASDIRECTED [facility] Last Admin: 06/04/18 20:11 Dose: 3 mls/sec Lactated Ringer's (Ringers, Lactated) 1,000 mls @ 125 mls/hr IV ASDIRECTED [facility] Last Admin: 06/05/18 04:43 Dose: 125 mls/hr Magnesium Sulfate 2 gm/ Premix 50 mls @ 25 mls/hr IV ONETIME ONE Stop: 06/05/18 10:59 Last Admin: 06/05/18 09:33 Dose: 25 mls/hr Iopamidol (Isovue-300 (61%)) 100 ml IV . DIRECTED [facility] Last Admin: 06/04/18 20:11 Dose: 100 ml Non-Formulary Medication (Fluticasone/Vilanterol) 1 puff IH ASDIRECTED [facility] Ondansetron HCl (Zofran) 4 mg IVPUSH ONETIME ONE Stop: 06/04/18 19:33 Last Admin: 06/04/18 19:46 Dose: 4 mg - Exam Quality Assessment: DVT Prophylaxis General: Alert, Oriented, Cooperative, Mild Distress Lungs: Clear to Auscultation, Normal Respiratory Effort Cardiovascular: Regular Rate, Regular Rhythm GI/Abdominal Exam: Soft, No Organomegaly, Tender. No: Distended, Guarding, Rigid, Rebound Extremities: Non-Tender, No Pedal Edema - Problem List Review Problem List Initiated/Reviewed/Updated: Yes - My Orders Last 24 Hours: My Active Orders 06/04/18 20:21 Resuscitation Status Routine 06/04/18 21:49 Patient Status [ADT] Routine Ambulate [RC] QID Blood Glucose Check, Bedside [RC] QIDACANDBED Cardiac Monitoring [RC] .As Directed Communication Order [RC] STAT Diabetes Education [RC] Click to Edit Height and Weight [RC] DAILY Intake and Output [RC] QSHIFT Notify Provider Vital Signs [RC] ASDIRECTED Notify Provider [RC] PRN Oxygen Therapy [RC] PRN Peripheral IV Care [RC] . DIRECTED RT Aerosol Therapy [RC] ASDIRECTED Up With Assistance [RC] ASDIRECTED Up to Chair [RC] QID VTE/DVT Education [RC] Per Unit Routine Vital Signs [RC] Q4H Acetaminophen [Tylenol] 650 mg PO Q4H PRN Albuterol [Proventil Neb Soln] 2.5 mg NEB Q4H PRN Dextrose 50% in Water 50 ml IV ONETIME PRN Dextrose [Glutose 15] 15 gm PO ONETIME PRN Enoxaparin [Lovenox] 40 mg SUBCUT BEDTIME HYDROmorphone [Dilaudid] 0.5 mg IVPUSH Q2H PRN Ondansetron [Zofran] 4 mg IV Q4H PRN Polyethylene Glycol 3350 [MiraLAX] 17 gm PO DAILY PRN Sodium Chloride 0.9% [Saline Flush] 10 ml FLUSH ASDIRECTED PRN atorvaSTATin [Lipitor] 40 mg PO BEDTIME oxyCODONE 5 mg PO Q4H PRN Peripheral IV Insertion Adult [OM.PC] Routine 06/04/18 22:53 Melatonin 9 mg PO BEDTIME PRN 06/05/18 07:00 Insulin Lispro [HumaLOG] See Protocol SUBCUT QIDACANDBED 06/05/18 07:30 Fluticasone/Salmeterol [Fluticasone-Salmeterol 113-14 MCG Powder Inh] 1 puff INH BIDRT Levothyroxine 75 mcg PO ACBREAKFAST Pantoprazole [ProTONIX] 40 mg PO ACBREAKFAST 06/05/18 09:00 Aspirin [Halfprin] 81 mg PO DAILY Insulin Glarg,Human.Rec.Analog [LantUS Solostar] 20 units SUBCUT QAM Lisinopril [Prinivil] 40 mg PO DAILY Magnesium Oxide 400 mg PO BID Metoprolol Succinate [Toprol XL] 200 mg PO DAILY Tamsulosin [Flomax] 0.4 mg PO DAILY amLODIPine [Norvasc] 10 mg PO DAILY 06/05/18 11:02 Convert IV to Saline Lock [OM.PC] Routine 06/05/18 11:30 GLUCOSE POC LAB TO COLLECT [POC] QIDACANDBED 06/05/18 14:00 Pneumococcal Polyvalent-23 Vac [Pneumovax 23] 0.5 ml IM .ONCE ONE 06/05/18 16:30 GLUCOSE POC LAB TO COLLECT [POC] QIDACANDBED 06/05/18 21:00 GLUCOSE POC LAB TO COLLECT [POC] QIDACANDBED 06/05/18 Lunch Regular Diet [DIET] 06/06/18 05:00 BASIC METABOLIC PANEL,BMP [CHEM] Timed CBC WITH AUTO DIFF [HEME] Timed MAGNESIUM [CHEM] Timed 06/06/18 07:30 GLUCOSE POC LAB TO COLLECT [POC] QIDACANDBED 06/06/18 11:30 GLUCOSE POC LAB TO COLLECT [POC] QIDACANDBED 06/06/18 16:30 GLUCOSE POC LAB TO COLLECT [POC] QIDACANDBED 06/06/18 21:00 GLUCOSE POC LAB TO COLLECT [POC] QIDACANDBED 06/07/18 07:30 GLUCOSE POC LAB TO COLLECT [POC] QIDACANDBED 06/07/18 11:30 GLUCOSE POC LAB TO COLLECT [POC] QIDACANDBED 06/07/18 16:30 GLUCOSE POC LAB TO COLLECT [POC] QIDACANDBED 06/07/18 21:00 GLUCOSE POC LAB TO COLLECT [POC] QIDACANDBED 06/08/18 07:30 GLUCOSE POC LAB TO COLLECT [POC] QIDACANDBED 06/08/18 11:30 GLUCOSE POC LAB TO COLLECT [POC] QIDACANDBED 06/08/18 16:30 GLUCOSE POC LAB TO COLLECT [POC] QIDACANDBED 06/08/18 21:00 GLUCOSE POC LAB TO COLLECT [POC] QIDACANDBED 06/09/18 07:30 GLUCOSE POC LAB TO COLLECT [POC] QIDACANDBED 06/09/18 11:30 GLUCOSE POC LAB TO COLLECT [POC] QIDACANDBED 06/09/18 16:30 GLUCOSE POC LAB TO COLLECT [POC] QIDACANDBED 06/09/18 21:00 GLUCOSE POC LAB TO COLLECT [POC] QIDACANDBED - Plan Plan:: ASSESSMENT AND PLAN ACUTE PANCREATITIS-improved since admission with less pain, amylase down to 2400. CT scan obtained in the emergency department does show evidence of pancreatitis, no pseudocyst or biliary ductal dilatation. Lipid profile obtained this morning does show elevation in triglyceride level at 300, not likely cause of pancreatitis. -Regular diet -Saline lock IV -Recheck lipase level in a.m. -Pain and nausea medication as needed TYPE 2 DIABETES MELLITUS -4 times a day glucometers -Resume metformin -Continue usual dose of long-acting insulin -Low-dose sliding scale NovoLog MAINTENANCE ISSUES -DVT prophylaxis; Lovenox 40 mg subcutaneous daily -GI prophylaxis; continue outpatient PPI therapy -Collazo catheter; not indicated -Nutrition; clear liquid diet -Nicotine dependence; not required CODE STATUS-FULL CODE ADMISSION STATUS-patient will be admitted to inpatient status, expect at least a 2 night hospital stay for evaluation and management of problems as outlined above. At the time of this admission I do not reasonably expected evaluation and management of this problem will require more than a 96 hour hospital stay. DISPOSITION-anticipate discharge to home after the hospital stay. PRIMARY CARE PROVIDER-
[2018-06-05] MEDS ORDERED: Pneumococcal Polyvalent-23 Vaccine 0.5 ML SDV IM ONE (14:00)
[2018-06-05] MEDS: atorvaSTATin 20 MG Tab PO SCH (21:42)
[2018-06-05] MEDS: Enoxaparin 40 MG/0.4 ML Syringe SUBCUT SCH (21:42)
[2018-06-05] MEDS: Melatonin 3 MG Tab PO PRN (21:47)
[2018-06-06] MEDS: Levothyroxine 25 MCG Tab PO SCH (07:17)
[2018-06-06] MEDS: Pantoprazole 40 MG Tab.CR PO SCH (07:17)
[2018-06-06] MEDS: Fluticasone-Salmeterol 113-14 MCG Powder Inhalant INH SCH (07:18)
[2018-06-06] MEDS: Insulin Lispro 100 Unit/ML 3 ML KwikPen SUBCUT SCH (07:54)
[2018-06-06] MEDS: Insulin Glargine,Human Rec. Analog 100 Units/ML 3 ML Pen SUBCUT SCH (07:59)
[2018-06-06] MEDS: Tamsulosin 0.4 MG Cap.ER PO SCH (08:00)
[2018-06-06] MEDS: Magnesium Oxide 400 MG Tab PO SCH (08:01)
[2018-06-06] MEDS: Aspirin 81 MG Tab.EC PO SCH (08:01)
[2018-06-06] MEDS: Lisinopril 20 MG Tab PO SCH (08:02)
[2018-06-06] MEDS: Metoprolol Succinate 50 MG Tab.ER PO SCH (08:02)
[2018-06-06] MEDS: amLODIPine 10 MG Tab PO SCH (08:02)
[2018-06-06 08:03] VITALS: BP 134/90
[2018-06-06] MEDS ORDERED: metFORMIN 500 MG Tab PO SCH (09:00)
[2018-06-06] MEDS ORDERED: Non-Formulary Medication 1 Each (Metformin Hcl [Metformin Hcl] 1,000 MG) PO SCH (09:00)
--- NOTE | 2018-06-06 10:34 | PCM.DCSUM1 ---
Discharge Summary - Hospital Course Brief History: 58-year-old male with history of previous episodes of pancreatitis, type 2 diabetes mellitus, obesity who presented with abdominal pain and nausea. He was admitted for management of acute pancreatitis. Diagnosis: Stroke: No - Discharge Data Discharge Date: 06/06/18 Discharge Disposition: Home, Self-Care 01 Condition: Good - Discharge Diagnosis/Problem(s) (1) Acute pancreatitis SNOMED Code(s): 758866958 ICD Code: K85.90 - ACUTE PANCREATITIS WITHOUT NECROSIS OR INFECTION, UNSP Status: Acute Qualifiers: Pancreatitis type: idiopathic Acute pancreatitis complication: no infection or necrosis Qualified Code(s): K85.00 - Idiopathic acute pancreatitis without necrosis or infection (2) Diabetes mellitus type 2 SNOMED Code(s): 39980849 ICD Code: E11.9 - TYPE 2 DIABETES MELLITUS WITHOUT COMPLICATIONS Status: Chronic (3) SLOAN (obstructive sleep apnea) SNOMED Code(s): 85475961 ICD Code: G47.33 - OBSTRUCTIVE SLEEP APNEA (ADULT) (PEDIATRIC) Status: Chronic - Patient Summary/Data Hospital Course: Victor Manuel presented to the emergency room with several days of progressive abdominal pain. Workup in the emergency room was suggestive of acute pancreatitis with a lipase elevation of 12,[address] scan that showed evidence for acute pancreatitis. He was admitted to the hospital and made nothing by mouth status. He was provided symptomatically management with pain medications as well as IV fluids. Over the next 2 days he had a fairly rapid improvement. His abdominal pain had nearly completely resolved by the time of discharge. His lipase level was down to 2400 the day before discharge and was not rechecked on the day of discharge. His vital signs have been stable. He has not had any fevers. He has been eating a regular but soft and bland diet. The diet did not cause any increase in his abdominal pain on the discharge day. The exact cause for his pancreatitis was not entirely clear. Triglycerides were normal. CT scan did not show any dilation of the biliary ducts. Diabetes or smoking could be considered. Patient has improved and is safe for discharge at this time. He is going to talk to his primary care provider about possible referral to gastroenterology. - Patient Instructions Diet: Regular Diet as Tolerated Diet, Other: soft, bland and boring for at least a week Activity: As Tolerated Driving: Do Not Drive (if taking pain pills ) Showering/Bathing: May Shower Notify Provider of: Fever, Increased Pain, Nausea and/or Vomiting Other/Special Instructions: 1. You were in the hospital for management of acute pancreatitis. We did not determine a definitive cause for the pancreatitis. Your condition has been improving with IV fluids and pain control. I would recommend that you maintain a soft, bland and boring diet for at least the next week. You should definitely avoid fatty foods, rich foods and spicy foods for at least the next week. 2. Continue your usual home medications as previously prescribed. 3. Follow up as scheduled with Kelly Reddy next week. 4. Seek medical attention if you fever greater than 101, severe abdominal pain or if you have persistent vomiting. - Discharge Plan *PRESCRIPTION DRUG MONITORING PROGRAM REVIEWED*: Not Applicable *COPY OF PRESCRIPTION DRUG MONITORING REPORT IN PATIENT TITI: Not Applicable Prescriptions/Med Rec: oxyCODONE 5 mg PO Q4H PRN #10 tablet PRN Reason: Pain (Moderate 4-6) Home Medications: Home Meds Albuterol [Ventolin HFA] 2 puff INH BID PRN 04/21/17 [History] Insulin Isophane NPH, Human [NovoLIN N] 10 unit SUBCUT TID 04/21/17 [History] Levothyroxine [Synthroid] 75 mcg PO ACBREAKFAST 04/21/17 [History] Lisinopril 40 mg PO DAILY 04/21/17 [History] Metoprolol Succinate 200 mg PO DAILY 04/21/17 [History] Omeprazole 20 mg PO DAILY 04/21/17 [History] Potassium Chloride 10 meq PO DAILY 04/21/17 [History] amLODIPine Besylate [Amlodipine Besylate] 10 mg PO DAILY 04/21/17 [History] atorvaSTATin Calcium [Atorvastatin Calcium] 40 mg PO BEDTIME 04/21/17 [History] metFORMIN HCl [Metformin HCl] 1,000 mg PO DAILY 04/21/17 [History] Aspirin [Halfprin] 81 mg PO DAILY 01/27/18 [History] Chromium Amino Acid Chelate [Chromium] 1,000 mcg PO DAILY 01/27/18 [History] Ciclopirox/Ure/Camph/Menth/Euc [Ciclopirox 8% Treatment Kit] 1 ml TOP ASDIRECTED 01/27/18 [History] Dextrose [Glucose] 4 gm PO ASDIRECTED PRN 01/27/18 [History] Ergocalciferol (Vitamin D2) [Vitamin D2] 50,000 unit PO DAILY 01/27/18 [History] Fluticasone/Vilanterol [Breo Ellipta 100-25 MCG Inhalation Kit] 1 puff IH ASDIRECTED 01/27/18 [History] Furosemide [Lasix] 20 mg PO BID 01/27/18 [History] Insulin Glargine,Hum.Rec.Anlog [Lantus Solostar] 20 unit SQ QAM 01/27/18 [ History] Insulin Isophane NPH, Human [HumuLIN N] 10 units SQ TID 01/27/18 [History] Tamsulosin [Flomax] 1 cap PO DAILY 01/27/18 [History] oxyCODONE 5 mg PO Q4H PRN #10 tablet 06/06/18 [Rx] Oxygen Therapy Mode: Room Air Patient Handouts: Acute Pancreatitis, [id number], Oxycodone tablets or capsules Referrals: Kelly Reddy NP [Ordering Only Provider] - - Discharge Summary/Plan Comment DC Time >30 min.: No - Patient Data Vitals - Most Recent: Last Vital Signs Temp 36.6 C 06/06/18 08:18 Pulse 71 06/06/18 08:18 Resp 16 06/06/18 08:18 BP 134/90 06/06/18 08:02 Pulse Ox 96 06/06/18 08:18 Weight - Most Recent: 117.662 kg I&O - Last 24 hours: Intake & Output 06/05/18 06/06/18 06/06/18 22:59 06:59 14:59 Intake Total 600 400 740 Balance 600 400 740 Lab Results - Last 24 hrs: Laboratory Results - last 24 hr 06/06/18 06/06/18 Range/Units 04:50 04:50 WBC 8.7 (4.5-11.0) K/uL RBC 4.80 (4.30-5.90) M/uL Hgb 15.0 (12.0-15.0) g/dL Hct 44.2 (40.0-54.0) % MCV 92 (80-98) fL MCH 31 (27-31) pg MCHC 34 (32-36) % Plt Count 219 (150-400) K/uL Neut % (Auto) 61 (36-66) % Lymph % (Auto) 27 (24-44) % [place] % (Auto) 10 H (2-6) % Eos % (Auto) 2 (2-4) % Baso % (Auto) 0 (0-1) % Sodium 138 L (140-148) mmol/L Potassium 4.1 (3.6-5.2) mmol/L Chloride 101 (100-108) mmol/L Carbon Dioxide 29 (21-32) mmol/L Anion Gap 12.1 (5.0-14.0) mmol/L BUN 14 (7-18) mg/dL Creatinine 1.0 (0.8-1.3) mg/dL Est Cr Clr Drug Dosing 86.80 mL/min Estimated GFR (MDRD) > 60 (>60) Glucose 191 H (74-106) mg/dL Calcium 8.9 (8.5-10.1) mg/dL Magnesium 1.7 L (1.8-2.4) mg/dL Med Orders - Current: Current Medications Acetaminophen (Tylenol) 650 mg PO Q4H PRN PRN Reason: Pain (Mild 1-3)/fever Last Admin: 06/05/18 01:10 Dose: 650 mg Albuterol (Proventil Neb Soln) 2.5 mg NEB Q4H PRN PRN Reason: Shortness Of Breath/wheezing Amlodipine Besylate (Norvasc) 10 mg PO DAILY [facility] Last Admin: 06/06/18 08:02 Dose: 10 mg Aspirin (Halfprin) 81 mg PO DAILY [facility] Last Admin: 06/06/18 08:01 Dose: 81 mg Atorvastatin Calcium (Lipitor) 40 mg PO BEDTIME [facility] Last Admin: 06/05/18 21:42 Dose: 40 mg Dextrose (Glutose 15) 15 gm PO ONETIME PRN PRN Reason: Hypoglycemia Dextrose/Water (Dextrose 50% In Water) 50 ml IV ONETIME PRN PRN Reason: Hypoglycemia Enoxaparin Sodium (Lovenox) 40 mg SUBCUT BEDTIME [facility] Last Admin: 06/05/18 21:42 Dose: 40 mg Hydromorphone HCl (Dilaudid) 0.5 mg IVPUSH Q2H PRN PRN Reason: Pain (severe 7-10) Insulin Glargine (Lantus Solostar) 20 [facility] [place] Last Admin: 06/06/18 07:59 Dose: 20 units Insulin Human Lispro (Humalog) 0 unit SUBCUT QIDACANDBED [facility]; Protocol Last Admin: 06/06/18 07:54 Dose: 2 units Levothyroxine Sodium (Levothyroxine) 75 mcg PO ACBREAKFAST [facility] Last Admin: 06/06/18 07:17 Dose: 75 mcg Lisinopril (Prinivil) 40 mg PO DAILY [facility] Last Admin: 06/06/18 08:02 Dose: 40 mg Magnesium Oxide (Magnesium Oxide) 400 mg PO BID [facility] Last Admin: 06/06/18 08:01 Dose: 400 mg Melatonin (Melatonin) 9 mg PO BEDTIME PRN PRN Reason: Insomnia Last Admin: 06/05/18 21:47 Dose: 9 mg Metformin HCl (Glucophage) 1,000 mg PO DAILY [facility] Last Admin: 06/06/18 08:01 Dose: 1,000 mg Metoprolol Succinate (Toprol Xl) 200 mg PO DAILY [facility] Last Admin: 06/06/18 08:02 Dose: 200 mg Ondansetron HCl (Zofran) 4 mg IV Q4H PRN PRN Reason: Nausea/Vomiting Oxycodone HCl (Oxycodone) 5 mg PO Q4H PRN PRN Reason: Pain (moderate 4-6) Last Admin: 06/05/18 21:48 Dose: 5 mg Pantoprazole Sodium (Protonix) 40 mg PO ACBREAKFAST [facility] Last Admin: 06/06/18 07:17 Dose: 40 mg Polyethylene Glycol (Miralax) 17 gm PO DAILY PRN PRN Reason: Constipation Fluticasone/Salmeterol (Fluticasone-Salmeterol 113-14 Mcg Powder Inh) 1 puff INH BIDRT [facility] Last Admin: 06/06/18 07:18 Dose: 1 puff Sodium Chloride (Saline Flush) 10 ml FLUSH ASDIRECTED PRN PRN Reason: Keep Vein Open Tamsulosin HCl (Flomax) 0.4 mg PO DAILY [facility] Last Admin: 06/06/18 08:00 Dose: 0.4 mg Discontinued Medications Hydromorphone HCl (Dilaudid) 1 mg IVPUSH ONETIME ONE Stop: 06/04/18 18:47 Last Admin: 06/04/18 18:58 Dose: 1 mg Hydromorphone HCl (Dilaudid) 1 mg IVPUSH ONETIME ONE Stop: 06/04/18 19:33 Last Admin: 06/04/18 19:46 Dose: 1 mg Hydromorphone HCl (Dilaudid) 1 mg IVPUSH ONETIME ONE Stop: 06/04/18 21:18 Last Admin: 06/04/18 21:23 Dose: 1 mg Lactated Ringer's (Ringers, Lactated) 1,000 mls @ 1,000 mls/hr IV BOLUS ONE Stop: 06/04/18 19:45 Last Admin: 06/04/18 18:58 Dose: 1,000 mls/hr Sodium Chloride (Normal Saline) 100 mls @ 3 mls/sec IV ASDIRECTED [facility] Last Admin: 06/04/18 20:11 Dose: 3 mls/sec Lactated Ringer's (Ringers, Lactated) 1,000 mls @ 125 mls/hr IV ASDIRECTED [facility] Last Admin: 06/05/18 04:43 Dose: 125 mls/hr Magnesium Sulfate 2 gm/ Premix 50 mls @ 25 mls/hr IV ONETIME ONE Stop: 06/05/18 10:59 Last Admin: 06/05/18 09:33 Dose: 25 mls/hr Iopamidol (Isovue-300 (61%)) 100 ml IV . DIRECTED [facility] Last Admin: 06/04/18 20:11 Dose: 100 ml Non-Formulary Medication (Fluticasone/Vilanterol) 1 puff IH ASDIRECTED [facility] Ondansetron HCl (Zofran) 4 mg IVPUSH ONETIME ONE Stop: 06/04/18 19:33 Last Admin: 06/04/18 19:46 Dose: 4 mg Pneumococcal Polyvalent Vaccine (Pneumovax 23) 0.5 ml IM .ONCE ONE Stop: 06/05/18 14:01 Last Admin: 06/05/18 18:12 Dose: 0.5 ml - Exam Quality Assessment: Denies: Supplemental Oxygen General: Reports: Alert, Oriented, Cooperative, No Acute Distress Lungs: Reports: Normal Respiratory Effort GI/Abdominal Exam: Soft, No Distention Extremities: No Pedal Edema Psy/Mental Status: Reports: Alert, Normal Affect
== END 2018-06-06 11:00 | disposition home or self-care (01) | DRG 282 ==
LOC: JP.ED 18:10 → JP.MS 20:18
PROVIDERS: ADMIT Hospitalist; ATTEND Internal Medicine
PROC: 3E0234Z Introduction of Serum, Toxoid and Vaccine into Muscle, Percutaneous Approach (ICD-10-PCS; principal; 2018-06-05)
DX: K85.00 Idiopathic acute pancreatitis without necrosis or infection (principal); E11.40 Type 2 diabetes mellitus with diabetic neuropathy, unspecified; E66.9 Obesity, unspecified; G47.33 Obstructive sleep apnea (adult) (pediatric); H54.7 Unspecified visual loss; I25.10 Atherosclerotic heart disease of native coronary artery without angina pectoris; E78.00 Pure hypercholesterolemia, unspecified; I10 Essential (primary) hypertension; J45.909 Unspecified asthma, uncomplicated; K21.9 Gastro-esophageal reflux disease without esophagitis; M19.90 Unspecified osteoarthritis, unspecified site; M54.9 Dorsalgia, unspecified; G89.29 Other chronic pain; F32.9 Major depressive disorder, single episode, unspecified; E03.9 Hypothyroidism, unspecified; F17.210 Nicotine dependence, cigarettes, uncomplicated; I25.2 Old myocardial infarction; Z68.36 Body mass index [BMI] 36.0-36.9, adult; Z90.49 Acquired absence of other specified parts of digestive tract; Z23 Encounter for immunization; Z88.1 Allergy status to other antibiotic agents; Z88.2 Allergy status to sulfonamides; Z79.82 Long term (current) use of aspirin; Z79.890 Hormone replacement therapy; Z86.73 Personal history of transient ischemic attack (TIA), and cerebral infarction without residual deficits; Z79.4 Long term (current) use of insulin; Z86.010 Personal history of colon polyps; Z79.899 Other long term (current) drug therapy
CPT/HCPCS: 36415; 74177; 80048; 80053; 80061; 82962; 83690; 83735; 85025; 85027; 90732; 94640; 96361; 96374; 96375; 96376; 99285-25; A9270-GY; G0009; J1170; J1650; J1815; J1815-GY; J2405; J3475; J7030; J7120; Q9967

== ENCOUNTER 2019-03-15 22:39 | Emergency (ER) | payer BC, MEDICARE ==
[2019-03-15 22:57] VITALS: BP 146/95; PULSE 80
--- NOTE | 2019-03-15 23:55 | EDM.PDOC ---
ED HPI GENERAL MEDICAL PROBLEM - General Chief Complaint: General Stated Complaint: HIGH BLOOD SUGAR Time Seen by Provider: 03/15/19 23:47 Source of Information: Reports: Patient, Old Records, RN Notes Reviewed History Limitations: Reports: No Limitations - History of Present Illness INITIAL COMMENTS - FREE TEXT/NARRATIVE: 59-year-old gentleman presents emergency department a complaint of elevated blood sugars, he states his blood sugars have been running between 250 and 350 normally runs around 150 range he just noticed this today he denies any other symptoms denies change in eating habits he has had some cough and congestion this been going on for little over a week use combination metformin and insulin - Related Data Allergies Allergy/AdvReac Type Severity Reaction Status Date / Time Sulfa (Sulfonamide Allergy Intermediate Swollen Verified 03/15/19 23:09 Antibiotics) Eyes amoxicillin Allergy Fever Verified 03/15/19 23:09 Home Meds: Home Meds Albuterol [Ventolin HFA] 2 puff INH BID PRN 04/21/17 [History] Insulin Isophane NPH, Human [NovoLIN N] 10 unit SUBCUT TID 04/21/17 [History] Levothyroxine [Synthroid] 75 mcg PO ACBREAKFAST 04/21/17 [History] Lisinopril 40 mg PO DAILY 04/21/17 [History] Metoprolol Succinate 200 mg PO DAILY 04/21/17 [History] Omeprazole 20 mg PO DAILY 04/21/17 [History] Potassium Chloride 10 meq PO DAILY 04/21/17 [History] amLODIPine Besylate [Amlodipine Besylate] 10 mg PO DAILY 04/21/17 [History] atorvaSTATin Calcium [Atorvastatin Calcium] 40 mg PO BEDTIME 04/21/17 [History] metFORMIN HCl [Metformin HCl] 1,000 mg PO DAILY 04/21/17 [History] Aspirin [Halfprin] 81 mg PO DAILY 01/27/18 [History] Chromium Amino Acid Chelate [Chromium] 1,000 mcg PO DAILY 01/27/18 [History] Ergocalciferol (Vitamin D2) [Vitamin D2] 50,000 unit PO DAILY 01/27/18 [History] Tamsulosin [Flomax] 1 cap PO DAILY 01/27/18 [History] Past Medical History HEENT History: Reports: Impaired Vision, Sinusitis Cardiovascular History: Reports: CAD, High Cholesterol, Hypertension, [place] Respiratory History: Reports: Asthma, Other (See Below) Other Respiratory History: pneumonia Gastrointestinal History: Reports: Cholelithiasis, Colon Polyp, GERD, Pancreatitis Musculoskeletal History: Reports: Arthritis, Back Pain, Chronic, Fracture, Other (See Below) Other Musculoskeletal History: Nerve damage to back Neurological History: Reports: CVA, Neuropathy, Diabetic Psychiatric History: Reports: Depression Endocrine/Metabolic History: Reports: Diabetes, Type II, Hypothyroidism, Obesity /BMI 30+ - Infectious Disease History Infectious Disease History: Reports: Chicken Pox - Past Surgical History Head Surgeries/Procedures: Reports: None HEENT Surgical History: Reports: Tonsillectomy Cardiovascular Surgical History: Reports: None Respiratory Surgical History: Reports: None GI Surgical History: Reports: Appendectomy, Cholecystectomy, Colonoscopy, Hernia Repair/Other Endocrine Surgical History: Reports: None Neurological Surgical History: Reports: None Musculoskeletal Surgical History: Reports: Other (See Below) Dermatological Surgical History: Reports: None Social & Family History - Family History Family Medical History: Noncontributory Cardiac: Reports: Hypertension : Reports: Renal Disease/Insufficiency Psychiatric: Reports: Depression Endocrine/Metabolic: Reports: Diabetes, type II Oncologic: Reports: Lung, Other (See Below) Other Oncologic Family History: Throat cancer - Tobacco Use Smoking Status *Q: Current Every Day Smoker Years of Tobacco use: 40 Packs/Tins Daily: 0.5 - Caffeine Use Caffeine Use: Reports: Coffee - Recreational Drug Use Recreational Drug Use: No ED ROS GENERAL - Review of Systems Review Of Systems: See Below Constitutional: Denies: Fever, Chills HEENT: Reports: No Symptoms Respiratory: Reports: No Symptoms Cardiovascular: Reports: No Symptoms Endocrine: Reports: High Glucose GI/Abdominal: Reports: No Symptoms : Reports: No Symptoms Musculoskeletal: Reports: No Symptoms ED EXAM, GENERAL - Physical Exam Exam: See Below Exam Limited By: No Limitations General Appearance: Alert, WD/WN, No Apparent Distress Respiratory/Chest: No Respiratory Distress, Lungs Clear, Normal Breath Sounds, No Accessory Muscle Use, Chest Non-Tender Cardiovascular: Regular Rate, Rhythm, No Murmur GI/Abdominal: Soft, Non-Tender Course - Vital Signs Last Recorded V/S: Last Vital Signs Temp 96.8 F 03/15/19 23:12 Pulse 80 03/15/19 23:12 Resp 16 03/15/19 23:12 BP 146/95 H 03/15/19 23:12 Pulse Ox 98 03/15/19 23:12 - Orders/Labs/Meds Labs: Laboratory Tests 03/15/19 03/15/19 03/15/19 Range/Units 00:01 00:01 00:01 WBC 10.1 (4.5-11.0) K/uL RBC 4.95 (4.30-5.90) M/uL Hgb 15.4 H (12.0-15.0) g/dL Hct 45.0 (40.0-54.0) % MCV 91 (80-98) fL MCH 31 (27-31) pg MCHC 34 (32-36) % Plt Count 247 (150-400) K/uL Neut % (Auto) 61 (36-66) % Lymph % (Auto) 27 (24-44) % [place] % (Auto) 10 H (2-6) % Eos % (Auto) 1 L (2-4) % Baso % (Auto) 1 (0-1) % Sodium 136 L (140-148) mmol/L Potassium 4.1 (3.6-5.2) mmol/L Chloride 100 (100-108) mmol/L Carbon Dioxide 27 (21-32) mmol/L Anion Gap 13.1 (5.0-14.0) mmol/L BUN 19 H (7-18) mg/dL Creatinine 1.1 (0.8-1.3) mg/dL Est Cr Clr Drug Dosing 77.96 mL/min Estimated GFR (MDRD) > 60 (>60) Glucose 275 H (74-106) mg/dL Hemoglobin A1c 9.9 H (4.5-6.2) % Calcium 8.3 L (8.5-10.1) mg/dL Total Bilirubin 0.4 (0.2-1.0) mg/dL AST 18 (15-37) U/L ALT 25 (12-78) U/L Alkaline Phosphatase 158 H (46-116) U/L Total Protein 7.1 (6.4-8.2) g/dL Albumin 3.6 (3.4-5.0) g/dL Globulin 3.5 (2.3-3.5) g/dL Albumin/Globulin Ratio 1.0 L (1.2-2.2) Meds: Medications Discontinued Medications Generic Name Dose Route Start Last Admin Trade Name Freq PRN Reason Stop Dose Admin Insulin Human Isoph/Insulin Regular 15 units 03/16/19 00:45 03/16/19 01:17 Humulin 70-30 SUBCUT 03/16/19 00:46 15 units NOW STA Administration Departure - Departure Time of Disposition: 02:22 Disposition: Home, Self-Care 01 Condition: Fair Clinical Impression: Diabetes mellitus type 2, Hyperglycemia - Discharge Information Instructions: Type 2 Diabetes Mellitus, Self Care, Adult, [id number] Referrals: PCP,None [Primary Care Provider] - Forms: ED Department Discharge Additional Instructions: Increase your insulin to 18 units twice a day, follow-up with your primary care provider next week Sepsis Event Note - Evaluation Sepsis Screening Result: No Definite Risk - Focused Exam Vital Signs: Vital Signs Temp Pulse Resp BP Pulse Ox 03/15/19 23:12 96.8 F 80 16 146/95 H 98 03/15/19 22:55 96.8 F 80 16 146/95 H 98 Date Exam was Performed: 03/16/19 Time Exam was Performed: 02:20 - Assessment/Plan Plan: Assessment Acuity = acute Site and laterality = diabetes mellitus type 2 poor control Etiology = insufficient insulin Manifestations = hyperglycemia Location of injury = Home Lab values = glucose elevated at 275 hemoglobin A1c at 9.9 consistent with chronic hyperglycemia Plan He did respond to 15 units of insulin subcu his blood sugar came down from 208 however I believe this is insufficient we will go ahead increase his insulin to 18 units twice daily he is going to follow-up with his primary care next week This note was dictated using [employer] voice recognition software please call with any questions on syntax or grammar.
[2019-03-16 00:21] LABS: HEMOGLOBIN A1C 9.9 % (4.5-6.2)
[2019-03-16] MEDS ORDERED: Insulin NPH/Insulin Regular,Human 70-30 100 Units/ML 10 ML Vial SUBCUT STA (00:45)
== END 2019-03-16 02:26 | disposition home or self-care (01) ==
LOC: JP.ED 22:39
DX: E11.65 Type 2 diabetes mellitus with hyperglycemia (principal); I25.10 Atherosclerotic heart disease of native coronary artery without angina pectoris; E78.00 Pure hypercholesterolemia, unspecified; I10 Essential (primary) hypertension; I25.2 Old myocardial infarction; J45.909 Unspecified asthma, uncomplicated; K21.9 Gastro-esophageal reflux disease without esophagitis; E03.9 Hypothyroidism, unspecified; E11.40 Type 2 diabetes mellitus with diabetic neuropathy, unspecified; F17.210 Nicotine dependence, cigarettes, uncomplicated; E66.9 Obesity, unspecified; Z68.38 Body mass index [BMI] 38.0-38.9, adult; Z86.73 Personal history of transient ischemic attack (TIA), and cerebral infarction without residual deficits; Z88.2 Allergy status to sulfonamides; Z88.0 Allergy status to penicillin; Z79.4 Long term (current) use of insulin; Z79.899 Other long term (current) drug therapy; Z79.890 Hormone replacement therapy; Z79.82 Long term (current) use of aspirin
CPT/HCPCS: 36415; 80053; 82962; 83036; 85025; 99284; A9270-GY

== ENCOUNTER 2019-03-23 16:08 | Emergency (ER) | payer BC, MEDICARE ==
--- NOTE | 2019-03-23 17:09 | EDM.PDOC ---
ED HPI GENERAL MEDICAL PROBLEM - General Chief Complaint: General Stated Complaint: HYPERGLYCEMIA Time Seen by Provider: 03/23/19 16:45 Source of Information: Reports: Patient History Limitations: Reports: No Limitations - History of Present Illness INITIAL COMMENTS - FREE TEXT/NARRATIVE: 59-year-old male with type 2 diabetes is in concerned about his hyperglycemia. He was feeling off today, kind of woozy and has had intermittent blurred vision so he wanted to be checked. Next Wednesday they are putting in a subcutaneous glucose monitor. He has had no fevers or chills, shortness of breath, chest pain, nausea or vomiting, and he has been trying to follow his diet. Last week his hemoglobin A1C was 10 and it scared him. Onset: Unknown/Unsure Associated Symptoms: Reports: Diaphoresis (Says he gets diaphoretic when his blood glucose is over 200), Malaise, Other (Intermittent dizziness). Denies: Confusion, Chest Pain, Cough, Fever/Chills, Headaches, Shortness of Breath - Related Data Allergies Allergy/AdvReac Type Severity Reaction Status Date / Time Sulfa (Sulfonamide Allergy Intermediate Swollen Verified 03/23/19 16:37 Antibiotics) Eyes amoxicillin Allergy Fever Verified 03/23/19 16:37 Home Meds: Home Meds Albuterol [Ventolin HFA] 2 puff INH BID PRN 04/21/17 [History] Insulin Isophane NPH, Human [NovoLIN N] 15 unit SUBCUT TID 04/21/17 [History] Levothyroxine [Synthroid] 75 mcg PO ACBREAKFAST 04/21/17 [History] Lisinopril 40 mg PO DAILY 04/21/17 [History] Metoprolol Succinate 200 mg PO DAILY 04/21/17 [History] Potassium Chloride 10 meq PO DAILY 04/21/17 [History] amLODIPine Besylate [Amlodipine Besylate] 10 mg PO DAILY 04/21/17 [History] atorvaSTATin Calcium [Atorvastatin Calcium] 40 mg PO BEDTIME 04/21/17 [History] metFORMIN HCl [Metformin HCl] 1,000 mg PO DAILY 04/21/17 [History] Aspirin [Halfprin] 81 mg PO DAILY 01/27/18 [History] Chromium Amino Acid Chelate [Chromium] 1,000 mcg PO DAILY 01/27/18 [History] Ergocalciferol (Vitamin D2) [Vitamin D2] 50,000 unit PO DAILY 01/27/18 [History] Tamsulosin [Flomax] 1 cap PO DAILY 01/27/18 [History] Past Medical History HEENT History: Reports: Impaired Vision, Sinusitis Cardiovascular History: Reports: CAD, High Cholesterol, Hypertension, [place] Respiratory History: Reports: Asthma, Other (See Below) Other Respiratory History: pneumonia Gastrointestinal History: Reports: Cholelithiasis, Colon Polyp, GERD, Pancreatitis Musculoskeletal History: Reports: Arthritis, Back Pain, Chronic, Fracture, Other (See Below) Other Musculoskeletal History: Nerve damage to back Neurological History: Reports: CVA, Neuropathy, Diabetic Psychiatric History: Reports: Depression Endocrine/Metabolic History: Reports: Diabetes, Type II, Hypothyroidism, Obesity /BMI 30+ - Infectious Disease History Infectious Disease History: Reports: Chicken Pox - Past Surgical History Head Surgeries/Procedures: Reports: None HEENT Surgical History: Reports: Tonsillectomy Cardiovascular Surgical History: Reports: None Respiratory Surgical History: Reports: None GI Surgical History: Reports: Appendectomy, Cholecystectomy, Colonoscopy, Hernia Repair/Other Endocrine Surgical History: Reports: None Neurological Surgical History: Reports: None Musculoskeletal Surgical History: Reports: Other (See Below) Dermatological Surgical History: Reports: None Social & Family History - Family History Family Medical History: Noncontributory Cardiac: Reports: Hypertension : Reports: Renal Disease/Insufficiency Psychiatric: Reports: Depression Endocrine/Metabolic: Reports: Diabetes, type II Oncologic: Reports: Lung, Other (See Below) Other Oncologic Family History: Throat cancer - Tobacco Use Smoking Status *Q: Current Every Day Smoker Years of Tobacco use: 30 Packs/Tins Daily: 0.5 Used Tobacco, but Quit: No Second Hand Smoke Exposure: No - Caffeine Use Caffeine Use: Reports: Coffee - Recreational Drug Use Recreational Drug Use: No ED ROS GENERAL - Review of Systems Review Of Systems: See Below Constitutional: Denies: Fever, Chills Respiratory: Denies: Shortness of Breath Cardiovascular: Denies: Chest Pain GI/Abdominal: Denies: Abdominal Pain, Nausea, Vomiting : Reports: No Symptoms Skin: Reports: Diaphoresis Neurological: Reports: Dizziness ED EXAM, GENERAL - Physical Exam Exam: See Below Exam Limited By: No Limitations General Appearance: Alert, No Apparent Distress Eye Exam: Bilateral Eye: PERRL Head: Atraumatic Respiratory/Chest: No Respiratory Distress, Lungs Clear Cardiovascular: Regular Rate, Rhythm GI/Abdominal: Soft, Non-Tender Extremities: Normal Inspection Neurological: Alert, Oriented Psychiatric: Normal Affect, Normal Mood Skin Exam: Warm, Dry Course - Vital Signs Last Recorded V/S: Last Vital Signs Temp 97.4 F 03/23/19 16:42 Pulse 73 03/23/19 16:42 Resp 17 03/23/19 16:42 BP 141/91 H 03/23/19 16:42 Pulse Ox 96 03/23/19 16:42 - Re-Assessments/Exams Free Text/Narrative Re-Assessment/Exam: 03/23/19 17:06 Went through his glucose monitor machine and the majority of his glucose levels over the past week have been between 250 and 100. There was some upper 200s 2 weeks ago but they actually look better over the past several days, 1 was as low as 71. We discussed his insulin doses, but there is nothing here that needs emergent adjustments and he can contact his diabetic provider tomorrow. Departure - Departure Time of Disposition: 17:13 Disposition: Home, Self-Care 01 Clinical Impression: Hyperglycemia Type 2 diabetes mellitus Qualifiers: Diabetes mellitus penitentiary insulin use: with superintendent terminal use Diabetes mellitus complication status: without complication Qualified Code(s): E11.9 - Type 2 diabetes mellitus without complications - Discharge Information Instructions: Type 2 Diabetes Mellitus, Diagnosis, Adult Referrals: PCP,None [Primary Care Provider] - Forms: ED Department Discharge Care Plan Goals: Continue current medications and insulin doses, try to follow your diet as closely as possible. Discuss your levels with your primary diabetic provider when able. Sepsis Event Note - Evaluation Sepsis Screening Result: No Definite Risk - Focused Exam Date Exam was Performed: 03/24/19 Time Exam was Performed: 07:27
== END 2019-03-23 17:13 | disposition home or self-care (01) ==
LOC: JP.ED 16:08
CPT/HCPCS: 99283

== ENCOUNTER 2019-09-30 18:19 | Emergency (ER) | payer BC, MEDICARE ==
[2019-09-30 18:47] VITALS: BP 151/102; PULSE 75
--- NOTE | 2019-09-30 19:00 | EDM.PDOC ---
ED HPI GENERAL MEDICAL PROBLEM - General Chief Complaint: Lower Extremity Injury/Pain Stated Complaint: ISSUE WITH LEFT FOOT/DIABETIC Time Seen by Provider: 09/30/19 18:32 - History of Present Illness INITIAL COMMENTS - FREE TEXT/NARRATIVE: 59 yo diabetic male presents with pain in his left heel. The pain has been intermittent for 3 days but is worse today. previously it would only be in the AM when he woke and after he had been sitting at night. Today the pain was present all day long. He does report stepping on a nail 2 weeks ago and is worried that it could be an infection. He is generally feeling well. His blood pressure is elevated today. He reports that he did take his medications and has an appt with his primary care provider Wed of this week. afebrile. Left Posterior Feet Pain Score (Numeric/FACES): 8 - Related Data Allergies Allergy/AdvReac Type Severity Reaction Status Date / Time Sulfa (Sulfonamide Allergy Intermediate Swollen Verified 09/30/19 18:28 Antibiotics) Eyes amoxicillin Allergy Fever Verified 09/30/19 18:28 Home Meds: Home Meds Albuterol [Ventolin HFA] 2 puff INH BID PRN 04/21/17 [History] Insulin Isophane NPH, Human [NovoLIN N] 15 unit SUBCUT TID 04/21/17 [History] Levothyroxine [Synthroid] 75 mcg PO ACBREAKFAST 04/21/17 [History] Lisinopril 40 mg PO DAILY 04/21/17 [History] Metoprolol Succinate 200 mg PO DAILY 04/21/17 [History] amLODIPine Besylate [Amlodipine Besylate] 10 mg PO DAILY 04/21/17 [History] atorvaSTATin Calcium [Atorvastatin Calcium] 40 mg PO BEDTIME 04/21/17 [History] Aspirin [Halfprin] 81 mg PO DAILY 01/27/18 [History] Chromium Amino Acid Chelate [Chromium] 1,000 mcg PO DAILY 01/27/18 [History] Insulin Glarg,Human.Rec.Analog [Lantus Solostar] 10 unit SUBCUT BEDTIME 09/30/19 [History] Past Medical History HEENT History: Reports: Impaired Vision, Sinusitis Cardiovascular History: Reports: CAD, High Cholesterol, Hypertension, [place] Respiratory History: Reports: Asthma, Other (See Below) Other Respiratory History: pneumonia Gastrointestinal History: Reports: Cholelithiasis, Colon Polyp, GERD, Pancreatitis Musculoskeletal History: Reports: Arthritis, Back Pain, Chronic, Fracture, Other (See Below) Other Musculoskeletal History: Nerve damage to back Neurological History: Reports: CVA, Neuropathy, Diabetic Psychiatric History: Reports: Depression Endocrine/Metabolic History: Reports: Diabetes, Type II, Hypothyroidism, Obesity/BMI 30+ - Infectious Disease History Infectious Disease History: Reports: Chicken Pox - Past Surgical History Head Surgeries/Procedures: Reports: None HEENT Surgical History: Reports: Tonsillectomy Cardiovascular Surgical History: Reports: None Respiratory Surgical History: Reports: None GI Surgical History: Reports: Appendectomy, Cholecystectomy, Colonoscopy, Hernia Repair/Other Endocrine Surgical History: Reports: None Neurological Surgical History: Reports: None Musculoskeletal Surgical History: Reports: Other (See Below) Dermatological Surgical History: Reports: None Social & Family History - Family History Family Medical History: Noncontributory Cardiac: Reports: Hypertension : Reports: Renal Disease/Insufficiency Psychiatric: Reports: Depression Endocrine/Metabolic: Reports: Diabetes, type II Oncologic: Reports: Lung, Other (See Below) Other Oncologic Family History: Throat cancer - Tobacco Use Smoking Status *Q: Current Every Day Smoker Years of Tobacco use: 35 Packs/Tins Daily: 0.5 Used Tobacco, but Quit: No Second Hand Smoke Exposure: Yes - Caffeine Use Caffeine Use: Reports: Coffee, Soda - Recreational Drug Use Recreational Drug Use: No Review of Systems - Review of Systems Review Of Systems: See Below Constitutional: Denies: Chills, Fever Respiratory: Denies: Shortness of Breath, Wheezing Cardiovascular: Denies: Chest Pain GI/Abdominal: Denies: Abdominal Pain ED EXAM, GENERAL - Physical Exam Exam: See Below Exam Limited By: No Limitations General Appearance: Alert, WD/WN, No Apparent Distress Respiratory/Chest: No Respiratory Distress Cardiovascular: Regular Rate, Rhythm Extremities: Other (pain on palpation at plantar insertion. full range of motion of ankle.) Psychiatric: Normal Affect, Normal Mood Skin Exam: Warm, Dry, Intact, Other (no wound identified on heel, no signs of infection) Course - Vital Signs Last Recorded V/S: Last Vital Signs Temp 35.9 C L 09/30/19 18:52 Pulse 75 09/30/19 18:52 Resp 14 09/30/19 18:52 BP 151/102 H 09/30/19 18:52 Pulse Ox 97 09/30/19 18:52 Departure - Departure Time of Disposition: 19:13 Disposition: Home, Self-Care 01 Condition: Good Clinical Impression: Plantar fasciitis of left foot - Discharge Information *PRESCRIPTION DRUG MONITORING PROGRAM REVIEWED*: Not Applicable *COPY OF PRESCRIPTION DRUG MONITORING REPORT IN PATIENT TITI: Not Applicable Instructions: Plantar Fasciitis With Rehab-SportsMed Referrals: PCP,None [Primary Care Provider] - Forms: ED Department Discharge Additional Instructions: ibuprofen 400 mg twice daily scheduled for 7 days then as needed thereafter ice as much as possible stretch out the lower leg as demonstrated your blood pressure is elevated today - follow-up in clinic as you have scheduled Sepsis Event Note (ED) - Evaluation Sepsis Screening Result: No Definite Risk - Focused Exam Vital Signs: Vital Signs Temp Pulse Resp BP Pulse Ox 09/30/19 18:52 35.9 C L 75 14 151/102 H 97 09/30/19 18:41 35.9 C L 75 14 151/102 H 97
== END 2019-09-30 19:26 | disposition home or self-care (01) ==
LOC: JP.ED 18:19
DX: M72.2 Plantar fascial fibromatosis (principal); I25.10 Atherosclerotic heart disease of native coronary artery without angina pectoris; E78.00 Pure hypercholesterolemia, unspecified; I10 Essential (primary) hypertension; I25.2 Old myocardial infarction; J45.909 Unspecified asthma, uncomplicated; M19.90 Unspecified osteoarthritis, unspecified site; E11.40 Type 2 diabetes mellitus with diabetic neuropathy, unspecified; E03.9 Hypothyroidism, unspecified; E66.9 Obesity, unspecified; F17.210 Nicotine dependence, cigarettes, uncomplicated; Z68.39 Body mass index [BMI] 39.0-39.9, adult; Z88.1 Allergy status to other antibiotic agents; Z88.2 Allergy status to sulfonamides; Z79.4 Long term (current) use of insulin; Z79.899 Other long term (current) drug therapy; Z79.82 Long term (current) use of aspirin; Z86.73 Personal history of transient ischemic attack (TIA), and cerebral infarction without residual deficits
CPT/HCPCS: 99283

== ENCOUNTER 2020-01-05 06:55 | Emergency (ER) | payer BC, MEDICARE ==
[2020-01-05 07:10] VITALS: BP 150/95; PULSE 73
--- NOTE | 2020-01-05 07:48 | EDM.PDOC ---
ED HPI GENERAL MEDICAL PROBLEM - General Chief Complaint: Back Pain or Injury Stated Complaint: KIDNEY STONES Time Seen by Provider: 01/05/20 07:40 Source of Information: Reports: Patient, RN Notes Reviewed History Limitations: Reports: No Limitations - History of Present Illness INITIAL COMMENTS - FREE TEXT/NARRATIVE: 59-year-old male presents emergency department a complaint of left-sided flank and back pain, he has had pyelonephritis in the past he is concerned he may be developing that he has had the pain for about 2 days no fevers no problems with urination Lower Back Pain Score (Numeric/FACES): 8 - Related Data Allergies Allergy/AdvReac Type Severity Reaction Status Date / Time Sulfa (Sulfonamide Allergy Intermediate Swollen Verified 09/30/19 18:28 Antibiotics) Eyes amoxicillin Allergy Fever Verified 09/30/19 18:28 Home Meds: Home Meds Albuterol [Ventolin HFA] 2 puff INH BID PRN 04/21/17 [History] Insulin Isophane NPH, Human [NovoLIN N] 15 unit SUBCUT TID 04/21/17 [History] Levothyroxine [Synthroid] 75 mcg PO ACBREAKFAST 04/21/17 [History] Lisinopril 40 mg PO DAILY 04/21/17 [History] Metoprolol Succinate 200 mg PO DAILY 04/21/17 [History] amLODIPine Besylate [Amlodipine Besylate] 10 mg PO DAILY 04/21/17 [History] atorvaSTATin Calcium [Atorvastatin Calcium] 40 mg PO BEDTIME 04/21/17 [History] Aspirin [Halfprin] 81 mg PO DAILY 01/27/18 [History] Chromium Amino Acid Chelate [Chromium] 1,000 mcg PO DAILY 01/27/18 [History] Insulin Glarg,Human.Rec.Analog [Lantus Solostar] 10 unit SUBCUT BEDTIME 09/30/19 [History] Cyclobenzaprine [Flexeril] 10 mg PO TID PRN #20 tab 01/05/20 [Rx] Ketorolac [Toradol] 10 mg PO TID PRN #20 tab 01/05/20 [Rx] Past Medical History HEENT History: Reports: Impaired Vision, Sinusitis Cardiovascular History: Reports: CAD, High Cholesterol, Hypertension, [place] Respiratory History: Reports: Asthma, Other (See Below) Other Respiratory History: pneumonia Gastrointestinal History: Reports: Cholelithiasis, Colon Polyp, GERD, Pancreatitis Musculoskeletal History: Reports: Arthritis, Back Pain, Chronic, Fracture, Other (See Below) Other Musculoskeletal History: Nerve damage to back Neurological History: Reports: CVA, Neuropathy, Diabetic Psychiatric History: Reports: Depression Endocrine/Metabolic History: Reports: Diabetes, Type II, Hypothyroidism, Obesity/BMI 30+ - Infectious Disease History Infectious Disease History: Reports: Chicken Pox - Past Surgical History HEENT Surgical History: Reports: Tonsillectomy Cardiovascular Surgical History: Reports: None Respiratory Surgical History: Reports: None GI Surgical History: Reports: Appendectomy, Cholecystectomy, Colonoscopy, Hernia Repair/Other Male Surgical History: Reports: Circumcision, Other (See Below) Other Male Surgeries/Procedures: lanced cyst on left testicle 2017 Endocrine Surgical History: Reports: None Neurological Surgical History: Reports: None Musculoskeletal Surgical History: Reports: Other (See Below) Other Musculoskeletal Surgeries/Procedures:: Left knee ACL removed Dermatological Surgical History: Reports: None Social & Family History - Family History Family Medical History: No Pertinent Family History Cardiac: Reports: Hypertension : Reports: Renal Disease/Insufficiency Psychiatric: Reports: Depression Endocrine/Metabolic: Reports: Diabetes, type II Oncologic: Reports: Lung, Other (See Below) Other Oncologic Family History: Throat cancer - Tobacco Use Tobacco Use Status *Q: Current Every Day Tobacco User Years of Tobacco use: 30 Packs/Tins Daily: 0.5 Used Tobacco, but Quit: No Second Hand Smoke Exposure: Yes - Caffeine Use Caffeine Use: Reports: Coffee, Soda - Recreational Drug Use Recreational Drug Use: No ED ROS GENERAL - Review of Systems Review Of Systems: See Below Constitutional: Denies: Fever, Chills Respiratory: Reports: No Symptoms Cardiovascular: Reports: No Symptoms GI/Abdominal: Reports: Abdominal Pain. Denies: Nausea, Vomiting : Reports: Flank Pain. Denies: Dysuria, Frequency, Urgency ED EXAM, RENAL/ - Physical Exam Exam: See Below Exam Limited By: No Limitations General Appearance: Alert, WD/WN, No Apparent Distress Respiratory/Chest: No Respiratory Distress, Lungs Clear, Normal Breath Sounds, No Accessory Muscle Use, Chest Non-Tender Cardiovascular: Regular Rate, Rhythm, No Murmur GI/Abdominal: Soft, Tender (Tender along the left flank left CVA area) Back Exam: Normal Inspection, Full Range of Motion, CVA Tenderness (L). No: CVA Tenderness (R) Course - Vital Signs Last Recorded V/S: Last Vital Signs Temp 95.8 F L 01/05/20 07:27 Pulse 73 01/05/20 07:27 Resp 18 01/05/20 07:27 BP 150/95 H 01/05/20 07:27 Pulse Ox 95 01/05/20 07:27 - Orders/Labs/Meds Labs: Laboratory Tests 01/05/20 01/05/20 01/05/20 Range/Units 07:22 08:01 08:01 WBC 8.5 (4.5-11.0) K/uL RBC 5.09 (4.30-5.90) M/uL Hgb 15.7 H (12.0-15.0) g/dL Hct 46.9 (40.0-54.0) % MCV 92 (80-98) fL MCH 31 (27-31) pg MCHC 34 (32-36) % Plt Count 251 (150-400) K/uL Neut % (Auto) 65 (36-66) % Lymph % (Auto) 21 L (24-44) % Terrell % (Auto) 12 H (2-6) % Eos % (Auto) 1 L (2-4) % Baso % (Auto) 1 (0-1) % Sodium 137 L (140-148) mmol/L Potassium 3.7 (3.6-5.2) mmol/L Chloride 99 L (100-108) mmol/L Carbon Dioxide 30 (21-32) mmol/L Anion Gap 11.7 (5.0-14.0) mmol/L BUN 18 (7-18) mg/dL Creatinine 1.2 (0.8-1.3) mg/dL Est Cr Clr Drug Dosing 71.47 mL/min Estimated GFR (MDRD) > 60 (>60) Glucose 282 H (74-106) mg/dL Lactic Acid (0.4-2.0) mmol/L Calcium 8.4 L (8.5-10.1) mg/dL Total Bilirubin 0.3 (0.2-1.0) mg/dL AST 16 (15-37) U/L ALT 18 (12-78) U/L Alkaline Phosphatase 144 H (46-116) U/L C-Reactive Protein 0.08 (0.0-0.3) mg/dL Total Protein 7.1 (6.4-8.2) g/dL Albumin 3.6 (3.4-5.0) g/dL Globulin 3.5 (2.3-3.5) g/dL Albumin/Globulin Ratio 1.0 L (1.2-2.2) Urine Color Yellow (YELLOW) Urine Appearance Clear (CLEAR) Urine pH 7.0 (5.0-8.0) Ur Specific Bailey 1.020 (1.008-1.030) Urine Protein Negative (NEGATIVE) mg/dL Urine Glucose (UA) 100 H (NEGATIVE) mg/dL Urine Ketones Negative (NEGATIVE) mg/dL Urine Occult Blood Negative (NEGATIVE) Urine Nitrite Negative (NEGATIVE) Urine Bilirubin Negative (NEGATIVE) Urine Urobilinogen 1.0 (0.2-1.0) EU/dL Ur Leukocyte Esterase Negative (NEGATIVE) Urine RBC 0-5 (0-5) Urine WBC Not seen (0-5) Ur Epithelial Cells Not seen Amorphous Sediment Not seen Urine Bacteria Not seen Urine Mucus Not seen 01/05/20 Range/Units 08:01 WBC (4.5-11.0) K/uL RBC (4.30-5.90) M/uL Hgb (12.0-15.0) g/dL Hct (40.0-54.0) % MCV (80-98) fL MCH (27-31) pg MCHC (32-36) % Plt Count (150-400) K/uL Neut % (Auto) (36-66) % Lymph % (Auto) (24-44) % Terrell % (Auto) (2-6) % Eos % (Auto) (2-4) % Baso % (Auto) (0-1) % Sodium (140-148) mmol/L Potassium (3.6-5.2) mmol/L Chloride (100-108) mmol/L Carbon Dioxide (21-32) mmol/L Anion Gap (5.0-14.0) mmol/L BUN (7-18) mg/dL Creatinine (0.8-1.3) mg/dL Est Cr Clr Drug Dosing mL/min Estimated GFR (MDRD) (>60) Glucose (74-106) mg/dL Lactic Acid 1.4 (0.4-2.0) mmol/L Calcium (8.5-10.1) mg/dL Total Bilirubin (0.2-1.0) mg/dL AST (15-37) U/L ALT (12-78) U/L Alkaline Phosphatase (46-116) U/L C-Reactive Protein (0.0-0.3) mg/dL Total Protein (6.4-8.2) g/dL Albumin (3.4-5.0) g/dL Globulin (2.3-3.5) g/dL Albumin/Globulin Ratio (1.2-2.2) Urine Color (YELLOW) Urine Appearance (CLEAR) Urine pH (5.0-8.0) Ur Specific Bailey (1.008-1.030) Urine Protein (NEGATIVE) mg/dL Urine Glucose (UA) (NEGATIVE) mg/dL Urine Ketones (NEGATIVE) mg/dL Urine Occult Blood (NEGATIVE) Urine Nitrite (NEGATIVE) Urine Bilirubin (NEGATIVE) Urine Urobilinogen (0.2-1.0) EU/dL Ur Leukocyte Esterase (NEGATIVE) Urine RBC (0-5) Urine WBC (0-5) Ur Epithelial Cells Amorphous Sediment Urine Bacteria Urine Mucus Meds: Medications Discontinued Medications Generic Name Dose Route Start Last Admin Trade Name Freq PRN Reason Stop Dose Admin Ketorolac Tromethamine 60 mg 01/05/20 08:27 01/05/20 08:46 Toradol IM 01/05/20 08:28 60 mg ONETIME ONE Administration Departure - Departure Time of Disposition: 10:35 Disposition: Home, Self-Care 01 Condition: Fair Clinical Impression: Low back pain Qualifiers: Chronicity: acute Back pain laterality: left Sciatica presence: without sciatica Qualified Code(s): M54.5 - Low back pain - Discharge Information Instructions: Back Injury Prevention, [id number], Back Exercises, [id number] Referrals: PCP,None [Primary Care Provider] - Forms: ED Department Discharge Additional Instructions: Try the Toradol 1 tablet up to 3 times a day as needed as well as Flexeril 1 tablet up to 3 times a day as needed for low back pain, please followup with your primary care provider in 3-5 days if not better, please call return to the emergency department with worsening of symptoms. Sepsis Event Note (ED) - Evaluation Sepsis Screening Result: No Definite Risk - Focused Exam Vital Signs: Vital Signs Temp Pulse Resp BP Pulse Ox 01/05/20 07:27 95.8 F L 73 18 150/95 H 95 01/05/20 07:08 95.8 F L 73 18 150/95 H 95 - Assessment/Plan Plan: Assessment Acuity = acute Site and laterality = low back pain Etiology = probably from long periods of sitting in [place] Manifestations = none Location of injury = Home Lab values = CBC, CMP, urinalysis unremarkable CT scan of the abdomen shows no acute process chronic nodule left adrenal gland Plan Good relief with Toradol provided in the emergency department medications of Toradol 10 mg 1 tab p.o. 3 times daily as needed total #20 and Flexeril all 10 mg 1 tab p.o. 3 times daily as needed [facility] care 3 to 5 days if not better This note was dictated using [employer] recognition software please call with any questions on syntax or grammar.
[2020-01-05] MEDS ORDERED: Ketorolac 60 MG/2 ML SDV IM ONE (08:27)
--- NOTE | 2020-01-05 10:00 | CT ---
Abdomen Pelvis wo Cont CLINICAL HISTORY: Left flank pain COMPARISON: Not available at this time. TECHNIQUE: Axial tomographic images are obtained from the dome of the diaphragm to the pubic symphysis without IV contrast enhancement. No oral contrast was used. The dosage reduction and iterative reconstruction techniques employed. FINDINGS: The lung bases are clear. The liver is borderline enlarged. There is no mass or biliary dilatation. The gallbladder has been removed. The spleen has a normal size and shape. The pancreas shows no mass or inflammatory change. There is a 2.1 x 1.6 cm low-attenuation nodule in the left adrenal gland. This is described on a 2018 CT report. There is no change in size. The kidneys show no stones or hydronephrosis. There is a 9 mm slightly hypodense focus off the lower pole the right kidney likely a small complex cyst. The bladder shows some mild generalized thickening felt to represent hypertrophy.. The aorta has a normal contour. There is no suspicious retroperitoneal adenopathy. The small intestinal configuration is nonacute. The abdominal pelvic fat planes and low pelvic side gillespie are well demarcated. IMPRESSION: Stable left adrenal nodule Mild bladder wall hypertrophy Previous cholecystectomy No mass, adenopathy or inflammatory change
== END 2020-01-05 10:45 | disposition home or self-care (01) ==
LOC: JP.ED 06:55
DX: M54.5 Low back pain (principal); I10 Essential (primary) hypertension; I25.10 Atherosclerotic heart disease of native coronary artery without angina pectoris; E78.00 Pure hypercholesterolemia, unspecified; I25.2 Old myocardial infarction; J45.909 Unspecified asthma, uncomplicated; M19.90 Unspecified osteoarthritis, unspecified site; E11.40 Type 2 diabetes mellitus with diabetic neuropathy, unspecified; F32.9 Major depressive disorder, single episode, unspecified; E03.9 Hypothyroidism, unspecified; F17.210 Nicotine dependence, cigarettes, uncomplicated; E66.9 Obesity, unspecified; Z68.38 Body mass index [BMI] 38.0-38.9, adult; Z88.2 Allergy status to sulfonamides; Z88.1 Allergy status to other antibiotic agents; Z79.4 Long term (current) use of insulin; Z79.899 Other long term (current) drug therapy; Z79.82 Long term (current) use of aspirin
CPT/HCPCS: 36415; 74176; 80053; 81001; 83605; 85025; 86140; 96372; 99284; J1885

== ENCOUNTER 2020-04-12 10:19 | Inpatient (IN) | payer BC, MEDICARE ==
[2020-04-12] MEDS ORDERED: Sodium Chloride 0.9% 1,000 ML IV STA (11:12)
[2020-04-12] MEDS ORDERED: Sodium Chloride 0.9% 10 ML Syringe FLUSH PRN (11:12)
[2020-04-12] MEDS ORDERED: fentaNYL 100 MCG/2 ML SDV IVPUSH ONE (11:17)
--- NOTE | 2020-04-12 11:18 | EDM.PDOC ---
ED HPI GENERAL MEDICAL PROBLEM - General Chief Complaint: Abdominal Pain Stated Complaint: STOMACH PAIN/WEAKNESS IN LEGS Time Seen by Provider: 04/12/20 11:12 Source of Information: Reports: Patient, RN Notes Reviewed History Limitations: Reports: No Limitations - History of Present Illness INITIAL COMMENTS - FREE TEXT/NARRATIVE: 60-year-old gentleman presents emergency department a complaint of epigastric pain, states has had epigastric pain for the last 2 weeks progressively getting worse he cannot tolerate any oral intake without significant pain he is also complaining of weakness mainly in the lower extremities with any amount of exertion becomes very weak has not had any fevers but felt hot and sweaty at times no nausea denies any shortness of breath Epigastric Pain Score (Numeric/FACES): 7 - Related Data Allergies Allergy/AdvReac Type Severity Reaction Status Date / Time Sulfa (Sulfonamide Allergy Intermediate Swollen Verified 04/12/20 10:32 Antibiotics) Eyes Home Meds: Home Meds Albuterol [Ventolin HFA] 2 puff INH BID PRN 04/21/17 [History] Insulin Isophane NPH, Human [NovoLIN N] 15 unit SUBCUT TID 04/21/17 [History] Levothyroxine [Synthroid] 75 mcg PO ACBREAKFAST 04/21/17 [History] Lisinopril 40 mg PO DAILY 04/21/17 [History] Metoprolol Succinate 200 mg PO DAILY 04/21/17 [History] amLODIPine Besylate [Amlodipine Besylate] 10 mg PO DAILY 04/21/17 [History] atorvaSTATin Calcium [Atorvastatin Calcium] 40 mg PO BEDTIME 04/21/17 [History] Aspirin [Halfprin] 81 mg PO DAILY 01/27/18 [History] Chromium Amino Acid Chelate [Chromium] 1,000 mcg PO DAILY 01/27/18 [History] Insulin Glarg,Human.Rec.Analog [Lantus Solostar] 10 unit SUBCUT BEDTIME 09/30/19 [History] Past Medical History HEENT History: Reports: Impaired Vision, Sinusitis Cardiovascular History: Reports: CAD, High Cholesterol, Hypertension, [place] Respiratory History: Reports: Asthma, Sleep Apnea, Other (See Below) Other Respiratory History: pneumonia Gastrointestinal History: Reports: Cholelithiasis, Colon Polyp, GERD, Pancreatitis Musculoskeletal History: Reports: Arthritis, Back Pain, Chronic, Fracture, Other (See Below) Other Musculoskeletal History: Nerve damage to back Neurological History: Reports: CVA, Neuropathy, Diabetic Psychiatric History: Reports: Depression Endocrine/Metabolic History: Reports: Diabetes, Type II, Hypothyroidism, Obesity/BMI 30+ - Infectious Disease History Infectious Disease History: Reports: Chicken Pox - Past Surgical History Head Surgeries/Procedures: Reports: None HEENT Surgical History: Reports: Tonsillectomy Cardiovascular Surgical History: Reports: None Respiratory Surgical History: Reports: None GI Surgical History: Reports: Appendectomy, Cholecystectomy, Colonoscopy, Hernia Repair/Other Male Surgical History: Reports: Circumcision, Other (See Below) Other Male Surgeries/Procedures: lanced cyst on left testicle 2016 Endocrine Surgical History: Reports: None Neurological Surgical History: Reports: None Musculoskeletal Surgical History: Reports: Other (See Below) Other Musculoskeletal Surgeries/Procedures:: Left knee ACL removed Dermatological Surgical History: Reports: None Social & Family History - Family History Family Medical History: No Pertinent Family History Cardiac: Reports: Hypertension : Reports: Renal Disease/Insufficiency Psychiatric: Reports: Depression Endocrine/Metabolic: Reports: Diabetes, type II Oncologic: Reports: Lung, Other (See Below) Other Oncologic Family History: Throat cancer - Tobacco Use Tobacco Use Status *Q: Current Every Day Tobacco User Years of Tobacco use: 41 Packs/Tins Daily: 0.5 - Caffeine Use Caffeine Use: Reports: Coffee - Recreational Drug Use Recreational Drug Use: No ED ROS GENERAL - Review of Systems Review Of Systems: See Below Constitutional: Reports: Weakness, Fatigue, Diaphoresis. Denies: Fever HEENT: Reports: No Symptoms Respiratory: Reports: No Symptoms Cardiovascular: Reports: No Symptoms GI/Abdominal: Reports: Abdominal Pain (Epigastric), Flatus. Denies: Constipation, Diarrhea, Nausea, Vomiting : Reports: No Symptoms ED EXAM, GI/ABD - Physical Exam Exam: See Below Exam Limited By: No Limitations General Appearance: Alert, WD/WN, No Apparent Distress Respiratory/Chest: No Respiratory Distress, Lungs Clear, Normal Breath Sounds, No Accessory Muscle Use, Chest Non-Tender Cardiovascular: Regular Rate, Rhythm, No Murmur GI/Abdominal Exam: Normal Bowel Sounds, Soft, No Distention, No Abnormal Bruit, Tender (Epigastric region) Course - Vital Signs Last Recorded V/S: Last Vital Signs Temp 97.0 F 04/12/20 10:26 Pulse 72 04/12/20 12:56 Resp 16 04/12/20 12:56 BP 146/95 H 04/12/20 12:56 Pulse Ox 96 04/12/20 12:56 - Orders/Labs/Meds Orders: Active Orders 24 hr Category Date Time Status EKG Documentation Completion [RC] ASDIRECTED Care 04/12/20 11:13 Active Peripheral IV Care [RC] . DIRECTED Care 04/12/20 11:13 Active Sodium Chloride 0.9% [Normal Saline] 89 ml Med 04/12/20 11:45 Active IV ASDIRECTED Sodium Chloride 0.9% [Saline Flush] Med 04/12/20 11:12 Active 10 ml FLUSH ASDIRECTED PRN Peripheral IV Insertion Adult [OM.PC] Urgent Oth 04/12/20 11:12 Ordered EKG 12 Lead [EK] Stat Ther 04/12/20 11:13 Ordered Medication Orders Sodium Chloride (Normal Saline) 89 mls @ 3.5 mls/sec IV ASDIRECTED PREET Last Admin: 04/12/20 12:02 Dose: 3.5 mls/sec Documented by: DECRMIC Sodium Chloride (Saline Flush) 10 ml FLUSH ASDIRECTED PRN PRN Reason: Keep Vein Open Labs: Laboratory Tests 04/12/20 04/12/20 04/12/20 Range/Units 11:14 11:36 11:36 WBC 9.1 (4.5-11.0) K/uL RBC 5.27 (4.30-5.90) M/uL Hgb 16.4 H (12.0-15.0) g/dL Hct 48.3 (40.0-54.0) % MCV 92 (80-98) fL MCH 31 (27-31) pg MCHC 34 (32-36) % Plt Count 262 (150-400) K/uL Neut % (Auto) 66 (36-66) % Lymph % (Auto) 23 L (24-44) % Nobles % (Auto) 10 H (2-6) % Eos % (Auto) 1 L (2-4) % Baso % (Auto) 1 (0-1) % Sodium 136 L (140-148) mmol/L Potassium 4.2 (3.6-5.2) mmol/L Chloride 98 L (100-108) mmol/L Carbon Dioxide 27 (21-32) mmol/L Anion Gap 15.2 H (5.0-14.0) mmol/L BUN 21 H (7-18) mg/dL Creatinine 1.3 (0.8-1.3) mg/dL Est Cr Clr Drug Dosing 65.16 mL/min Estimated GFR (MDRD) 57 L (>60) Glucose 355 H (74-106) mg/dL Lactic Acid (0.4-2.0) mmol/L Calcium 9.0 (8.5-10.1) mg/dL Total Bilirubin 0.3 (0.2-1.0) mg/dL AST 10 L (15-37) U/L ALT 18 (12-78) U/L Alkaline Phosphatase 154 H (46-116) U/L Troponin I < 0.017 (0.000-0.056) ng/mL Total Protein 7.8 (6.4-8.2) g/dL Albumin 3.9 (3.4-5.0) g/dL Globulin 3.9 H (2.3-3.5) g/dL Albumin/Globulin Ratio 1.0 L (1.2-2.2) Lipase 727 H (73-393) U/L Urine Color (YELLOW) Urine Appearance (CLEAR) Urine pH (5.0-8.0) Ur Specific [place] (1.008-1.030) Urine Protein (NEGATIVE) mg/dL Urine Glucose (UA) (NEGATIVE) mg/dL Urine Ketones (NEGATIVE) mg/dL Urine Occult Blood (NEGATIVE) Urine Nitrite (NEGATIVE) Urine Bilirubin (NEGATIVE) Urine Urobilinogen (0.2-1.0) EU/dL Ur Leukocyte Esterase (NEGATIVE) Urine RBC (0-5) Urine WBC (0-5) Ur Epithelial Cells Amorphous Sediment Urine Bacteria Urine Mucus Influenza Type A RNA Negative (NEGATIVE) RSV RNA (INAAT) Negative (NEGATIVE) Influenza Type B RNA Negative (NEGATIVE) SARS-CoV-2 RNA (MARIA L) Negative (NEGATIVE) 04/12/20 04/12/20 Range/Units 11:36 11:47 WBC (4.5-11.0) K/uL RBC (4.30-5.90) M/uL Hgb (12.0-15.0) g/dL Hct (40.0-54.0) % MCV (80-98) fL MCH (27-31) pg MCHC (32-36) % Plt Count (150-400) K/uL Neut % (Auto) (36-66) % Lymph % (Auto) (24-44) % Nobles % (Auto) (2-6) % Eos % (Auto) (2-4) % Baso % (Auto) (0-1) % Sodium (140-148) mmol/L Potassium (3.6-5.2) mmol/L Chloride (100-108) mmol/L Carbon Dioxide (21-32) mmol/L Anion Gap (5.0-14.0) mmol/L BUN (7-18) mg/dL Creatinine (0.8-1.3) mg/dL Est Cr Clr Drug Dosing mL/min Estimated GFR (MDRD) (>60) Glucose (74-106) mg/dL Lactic Acid 1.2 (0.4-2.0) mmol/L Calcium (8.5-10.1) mg/dL Total Bilirubin (0.2-1.0) mg/dL AST (15-37) U/L ALT (12-78) U/L Alkaline Phosphatase (46-116) U/L Troponin I (0.000-0.056) ng/mL Total Protein (6.4-8.2) g/dL Albumin (3.4-5.0) g/dL Globulin (2.3-3.5) g/dL Albumin/Globulin Ratio (1.2-2.2) Lipase (73-393) U/L Urine Color Yellow (YELLOW) Urine Appearance Clear (CLEAR) Urine pH 6.0 (5.0-8.0) Ur Specific [place] 1.020 (1.008-1.030) Urine Protein Negative (NEGATIVE) mg/dL Urine Glucose (UA) 500 H (NEGATIVE) mg/dL Urine Ketones Negative (NEGATIVE) mg/dL Urine Occult Blood Negative (NEGATIVE) Urine Nitrite Negative (NEGATIVE) Urine Bilirubin Negative (NEGATIVE) Urine Urobilinogen 0.2 (0.2-1.0) EU/dL Ur Leukocyte Esterase Negative (NEGATIVE) Urine RBC Not seen (0-5) Urine WBC Not seen (0-5) Ur Epithelial Cells Not seen Amorphous Sediment Not seen Urine Bacteria Not seen Urine Mucus Not seen Influenza Type A RNA (NEGATIVE) RSV RNA (INAAT) (NEGATIVE) Influenza Type B RNA (NEGATIVE) SARS-CoV-2 RNA (MARIA L) (NEGATIVE) Meds: Medications Generic Name Dose Route Start Last Admin Trade Name Keisha PRN Reason Stop Dose Admin Sodium Chloride 89 mls @ 3.5 mls/sec 04/12/20 11:45 04/12/20 12:02 Normal Saline IV 3.5 mls/sec ASDIRECTED PREET Administration Sodium Chloride 10 ml 04/12/20 11:12 Saline Flush FLUSH ASDIRECTED PRN Keep Vein Open Discontinued Medications Generic Name Dose Route Start Last Admin Trade Name Freq PRN Reason Stop Dose Admin Fentanyl 50 mcg 04/12/20 11:17 04/12/20 11:55 Sublimaze IVPUSH 04/12/20 11:18 50 mcg ONETIME ONE Administration Hydromorphone HCl 1 mg 04/12/20 12:46 04/12/20 12:52 Dilaudid IVPUSH 04/12/20 12:47 1 mg ONETIME ONE Administration Sodium Chloride 1,000 mls @ 500 mls/hr 04/12/20 11:12 04/12/20 11:56 Normal Saline IV 04/12/20 13:11 500 mls/hr .BOLUS STA Administration Iopamidol 150 ml 04/12/20 11:31 04/12/20 12:02 Isovue-300 (61%) IV 04/12/20 11:32 150 ml ONETIME ONE Administration Sodium Chloride 10 ml 04/12/20 11:31 04/12/20 11:57 Saline Flush FLUSH 04/12/20 11:32 10 ml ONETIME ONE Administration Departure - Departure Time of Disposition: 13:53 Disposition: Admitted As Inpatient 67 Condition: Fair Clinical Impression: Abdominal pain Qualifiers: Abdominal location: epigastric Qualified Code(s): R10.13 - Epigastric pain - Discharge Information Referrals: PCP,None [Primary Care Provider] - Forms: ED Department Discharge Sepsis Event Note (ED) - Evaluation Sepsis Screening Result: No Definite Risk - Focused Exam Vital Signs: Vital Signs Temp Pulse Resp BP Pulse Ox 04/12/20 12:56 72 16 146/95 H 96 04/12/20 10:55 77 17 156/101 H 98 04/12/20 10:26 97.0 F 81 16 155/101 H 98 - My Orders Last 24 Hours: My Active Orders 04/12/20 11:12 Sodium Chloride 0.9% [Saline Flush] 10 ml FLUSH ASDIRECTED PRN Peripheral IV Insertion Adult [OM.PC] Urgent 04/12/20 11:13 EKG Documentation Completion [RC] ASDIRECTED Peripheral IV Care [RC] . DIRECTED EKG 12 Lead [EK] Stat 04/12/20 11:45 Sodium Chloride 0.9% [Normal Saline] 89 ml IV ASDIRECTED - Assessment/Plan Last 24 Hours: My Active Orders 04/12/20 11:12 Sodium Chloride 0.9% [Saline Flush] 10 ml FLUSH ASDIRECTED PRN Peripheral IV Insertion Adult [OM.PC] Urgent 04/12/20 11:13 EKG Documentation Completion [RC] ASDIRECTED Peripheral IV Care [RC] . DIRECTED EKG 12 Lead [EK] Stat 04/12/20 11:45 Sodium Chloride 0.9% [Normal Saline] 89 ml IV ASDIRECTED Plan: Assessment Acuity = acute Site and laterality = epigastric abdominal pain Etiology = concern for early pancreatitis Manifestations = none Location of injury = Home Lab values = WBC unremarkable sodium low at 136 consistent hyponatremia glucose elevated 355 consistent hyperglycemia lactic acid normal 1.2 troponin is negative lipase elevated 727 urinalysis unremarkable Covid test negative influenza negative CT scan describes fatty liver with stranding around the pancreas concern for early development of pancreatitis Plan Call discussed case with hospitalist on-call at 140 currently agreed to come and evaluate the patient emergency department for admission This note was dictated using [employer] voice recognition software please call with any questions on syntax or grammar.
[2020-04-12] MEDS ORDERED: Sodium Chloride 0.9% 10 ML Syringe FLUSH ONE (11:31)
[2020-04-12] MEDS ORDERED: Iopamidol 612 MG/ML 500 ML Multipack Bottle IV ONE (11:31)
--- NOTE | 2020-04-12 12:20 | CR ---
CHEST: 2 view CLINICAL HISTORY:Epigastric pain COMPARISON:None FINDINGS: Lung markings are exaggerated by patient's large body habitus. The heart size, pulmonary vascularity and hilar structures are normal. No infiltrate effusion or pneumothorax is seen. IMPRESSION: No acute cardiopulmonary process.
[2020-04-12] MEDS ORDERED: HYDROmorphone 1 MG/ML Syringe IVPUSH ONE ×2 (12:46→14:20)
[2020-04-12 12:47] LABS: CORONAVIRUS COVID-19 NAA NEGATIVE (NEGATIVE)
--- NOTE | 2020-04-12 12:57 | CT ---
Abdomen Pelvis w Cont CLINICAL HISTORY: Epigastric pain COMPARISON: December 2019. TECHNIQUE: Transverse scans were obtained from the base of the lungs to the pubic symphysis following oral contrast and IV infusion of contrast.Auto dosage reduction and iterative reconstructiontechniques employed. FINDINGS: The lung bases are clear. The liver is mildly enlarged. There is diffuse fatty infiltration.. The gallbladder has been removed. The spleen has a normal size and shape. The pancreas shows no mass. There is some mild ill-definition and stranding in the peripancreatic fat around the distal body and tail region. No abnormal fluid collections are identified. There is a stable low-attenuation nodule in the left adrenal gland consistent with a benign adenoma. There is a 1 cm low-attenuation focus of the upper pole the right kidney. There is a similar 7 mm focus off the lower pole. These are unchanged from prior study. There is a 11 mm cyst off the lower pole of the left kidney. No stones or hydronephrosis is seen. Ureters have normal course and contour. The bladder has a normal contour.. The aorta shows atheromatous plaque. 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 There is no suspicious retroperitoneal adenopathy. The small intestinal configuration is nonacute. The appendix is been removed. There is some minimal diverticulosis. IMPRESSION: Mild hepatomegaly with diffuse fatty infiltration of the liver Ill-definition of the peripancreatic fat plane around the distal body and tail of the pancreas is suspicious for some early or mild pancreatitis. 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
--- NOTE | 2020-04-12 14:29 | PCM.HP.2 ---
H&P History of Present Illness - General Date of Service: 04/12/20 Admit Problem/Dx: Admission Diagnosis/Problem Admission Diagnosis/Problem Pancreatitis Source of Information: Patient, Provider History Limitations: Reports: No Limitations - History of Present Illness Initial Comments - Free Text/Narative: CC: My stomach is hurting bad HPI: Victor Manuel presents to the emergency room with 2 weeks of progressive epigastric abdominal pain. He describes cramping but also steady pain that initially was mild but has progressed to the point that it is severe. Pain definitely gets worse when he tries to eat anything but he does okay with water. He did try drinking baking soda mixed with water to make it feel better but it did not help. Pain has steadily been getting worse. Pain is present essentially all day and even at night. He has had some sweats in the middle the night but has not had any fevers. He has not had nausea or vomiting. He does think this feels kind of like his previous episodes of pancreatitis. He has noticed increased heartburn recently. He has had a couple of episodes of blood in the stool but this has been small quantity and he blames it on hemorrhoids because of recent constipation. He has not been losing any weight. He thinks his diabetes has been well controlled but he has not been checking his blood sugars. He does not feel short of breath. He is not aware of any sick contacts. He thinks he might have a cold with some mild nasal congestion. Work-up in the emergency room revealed a mildly elevated lipase and hyperglycemia but otherwise reassuring laboratory studies. CT scan showed some mild stranding around the pancreas but no definitive pancreatitis. No evidence for obstruction or other acute findings on the CT scan. Patient will be admitted for management of possible mild pancreatitis versus peptic ulcer diseas e. Epigastric Pain Score (Numeric/FACES): 7 - Related Data Allergies/Adverse Reactions: Allergies Allergy/AdvReac Type Severity Reaction Status Date / Time Sulfa (Sulfonamide Allergy Intermediate Swollen Verified 04/12/20 10:32 Antibiotics) Eyes Home Medications: Home Meds Albuterol [Ventolin HFA] 2 puff INH BID PRN 04/21/17 [History] Insulin Isophane NPH, Human [NovoLIN N] 15 unit SUBCUT TID 04/21/17 [History] Levothyroxine [Synthroid] 75 mcg PO ACBREAKFAST 04/21/17 [History] Lisinopril 40 mg PO DAILY 04/21/17 [History] Metoprolol Succinate 200 mg PO DAILY 04/21/17 [History] amLODIPine Besylate [Amlodipine Besylate] 10 mg PO DAILY 04/21/17 [History] atorvaSTATin Calcium [Atorvastatin Calcium] 40 mg PO BEDTIME 04/21/17 [History] Aspirin [Halfprin] 81 mg PO DAILY 01/27/18 [History] Chromium Amino Acid Chelate [Chromium] 1,000 mcg PO DAILY 01/27/18 [History] Insulin Glarg,Human.Rec.Analog [Lantus Solostar] 10 unit SUBCUT BEDTIME 09/30/19 [History] Past Medical History HEENT History: Reports: Impaired Vision, Sinusitis Cardiovascular History: Reports: CAD, High Cholesterol, Hypertension, [place] Respiratory History: Reports: Asthma, Sleep Apnea, Other (See Below) Other Respiratory History: pneumonia Gastrointestinal History: Reports: Cholelithiasis, Colon Polyp, GERD, Pancreatitis Musculoskeletal History: Reports: Arthritis, Back Pain, Chronic, Fracture, Other (See Below) Other Musculoskeletal History: Nerve damage to back Neurological History: Reports: CVA, Neuropathy, Diabetic Psychiatric History: Reports: Depression Endocrine/Metabolic History: Reports: Diabetes, Type II, Hypothyroidism, Obesity/BMI 30+ - Infectious Disease History Infectious Disease History: Reports: Chicken Pox - Past Surgical History Head Surgeries/Procedures: Reports: None HEENT Surgical History: Reports: Tonsillectomy Cardiovascular Surgical History: Reports: None Respiratory Surgical History: Reports: None GI Surgical History: Reports: Appendectomy, Cholecystectomy, Colonoscopy, Hernia Repair/Other Male Surgical History: Reports: Circumcision, Other (See Below) Other Male Surgeries/Procedures: lanced cyst on left testicle 2016 Endocrine Surgical History: Reports: None Neurological Surgical History: Reports: None Musculoskeletal Surgical History: Reports: Other (See Below) Other Musculoskeletal Surgeries/Procedures:: Left knee ACL removed Dermatological Surgical History: Reports: None Social & Family History - Family History Family Medical History: No Pertinent Family History Cardiac: Reports: Hypertension : Reports: Renal Disease/Insufficiency Psychiatric: Reports: Depression Endocrine/Metabolic: Reports: Diabetes, type II Oncologic: Reports: Lung, Other (See Below) Other Oncologic Family History: Throat cancer - Tobacco Use Tobacco Use Status *Q: Current Every Day Tobacco User Years of Tobacco use: 41 Packs/Tins Daily: 0.5 - Caffeine Use Caffeine Use: Reports: Coffee - Alcohol Use Alcohol Use History: No - Recreational Drug Use Recreational Drug Use: No H&P Review of Systems - Review of Systems: Review Of Systems: See Below Free Text/Narrative: A complete 12 point review of systems was obtained. Pertinent positives and negatives are noted in the history of present illness. All other systems were reviewed and were negative except as noted. Exam - Exam Exam: See Below - Vital Signs Vital Signs: Last Vital Signs Temp 36.1 C 04/12/20 10:26 Pulse 72 04/12/20 12:56 Resp 16 04/12/20 12:56 BP 146/95 H 04/12/20 12:56 Pulse Ox 96 04/12/20 12:56 Weight: 129.6 kg - Exam Quality Assessment: No: Supplemental Oxygen General: Alert, Oriented, Cooperative. No: Mild Distress HEENT: Conjunctiva Clear. No: Mucosa Moist & [place] (dry), Scleral Icterus Neck: Supple, Trachea Midline Lungs: Clear to Auscultation, Normal Respiratory Effort Cardiovascular: Regular Rate, Regular Rhythm GI/Abdominal Exam: Soft, No Distention, Tender (mild diffuse, moderate epigastric ). No: Normal Bowel Sounds (hypoactive ) Extremities: No Pedal Edema. No: Increased Warmth Peripheral Pulses: 2+: Dorsalis Pedis (L), Dorsalis Pedis (R) Skin: Warm, Dry Neuro Extensive - Mental Status: Alert, Oriented x3, Nl Response to Commands Neuro Extensive - Motor, Sensory, Reflexes: No: Dysarthria, Abnormal Motor, Tremor Psychiatric: Alert, Normal Affect - Patient Data Lab Results Last 24 hrs: Laboratory Results - last 24 hr 04/12/20 04/12/20 04/12/20 Range/Units 11:14 11:36 11:36 WBC 9.1 (4.5-11.0) K/uL RBC 5.27 (4.30-5.90) M/uL Hgb 16.4 H (12.0-15.0) g/dL Hct 48.3 (40.0-54.0) % MCV 92 (80-98) fL MCH 31 (27-31) pg MCHC 34 (32-36) % Plt Count 262 (150-400) K/uL Neut % (Auto) 66 (36-66) % Lymph % (Auto) 23 L (24-44) % Todd % (Auto) 10 H (2-6) % Eos % (Auto) 1 L (2-4) % Baso % (Auto) 1 (0-1) % Sodium 136 L (140-148) mmol/L Potassium 4.2 (3.6-5.2) mmol/L Chloride 98 L (100-108) mmol/L Carbon Dioxide 27 (21-32) mmol/L Anion Gap 15.2 H (5.0-14.0) mmol/L BUN 21 H (7-18) mg/dL Creatinine 1.3 (0.8-1.3) mg/dL Est Cr Clr Drug Dosing 65.16 mL/min Estimated GFR (MDRD) 57 L (>60) Glucose 355 H (74-106) mg/dL Lactic Acid (0.4-2.0) mmol/L Calcium 9.0 (8.5-10.1) mg/dL Total Bilirubin 0.3 (0.2-1.0) mg/dL AST 10 L (15-37) U/L ALT 18 (12-78) U/L Alkaline Phosphatase 154 H (46-116) U/L Troponin I < 0.017 (0.000-0.056) ng/mL Total Protein 7.8 (6.4-8.2) g/dL Albumin 3.9 (3.4-5.0) g/dL Globulin 3.9 H (2.3-3.5) g/dL Albumin/Globulin Ratio 1.0 L (1.2-2.2) Lipase 727 H (73-393) U/L Urine Color (YELLOW) Urine Appearance (CLEAR) Urine pH (5.0-8.0) Ur Specific [place] (1.008-1.030) Urine Protein (NEGATIVE) mg/dL Urine Glucose (UA) (NEGATIVE) mg/dL Urine Ketones (NEGATIVE) mg/dL Urine Occult Blood (NEGATIVE) Urine Nitrite (NEGATIVE) Urine Bilirubin (NEGATIVE) Urine Urobilinogen (0.2-1.0) EU/dL Ur Leukocyte Esterase (NEGATIVE) Urine RBC (0-5) Urine WBC (0-5) Ur Epithelial Cells Amorphous Sediment Urine Bacteria Urine Mucus Influenza Type A RNA Negative (NEGATIVE) RSV RNA (INAAT) Negative (NEGATIVE) Influenza Type B RNA Negative (NEGATIVE) SARS-CoV-2 RNA (MARIA L) Negative (NEGATIVE) 04/12/20 04/12/20 Range/Units 11:36 11:47 WBC (4.5-11.0) K/uL RBC (4.30-5.90) M/uL Hgb (12.0-15.0) g/dL Hct (40.0-54.0) % MCV (80-98) fL MCH (27-31) pg MCHC (32-36) % Plt Count (150-400) K/uL Neut % (Auto) (36-66) % Lymph % (Auto) (24-44) % Todd % (Auto) (2-6) % Eos % (Auto) (2-4) % Baso % (Auto) (0-1) % Sodium (140-148) mmol/L Potassium (3.6-5.2) mmol/L Chloride (100-108) mmol/L Carbon Dioxide (21-32) mmol/L Anion Gap (5.0-14.0) mmol/L BUN (7-18) mg/dL Creatinine (0.8-1.3) mg/dL Est Cr Clr Drug Dosing mL/min Estimated GFR (MDRD) (>60) Glucose (74-106) mg/dL Lactic Acid 1.2 (0.4-2.0) mmol/L Calcium (8.5-10.1) mg/dL Total Bilirubin (0.2-1.0) mg/dL AST (15-37) U/L ALT (12-78) U/L Alkaline Phosphatase (46-116) U/L Troponin I (0.000-0.056) ng/mL Total Protein (6.4-8.2) g/dL Albumin (3.4-5.0) g/dL Globulin (2.3-3.5) g/dL Albumin/Globulin Ratio (1.2-2.2) Lipase (73-393) U/L Urine Color Yellow (YELLOW) Urine Appearance Clear (CLEAR) Urine pH 6.0 (5.0-8.0) Ur Specific [place] 1.020 (1.008-1.030) Urine Protein Negative (NEGATIVE) mg/dL Urine Glucose (UA) 500 H (NEGATIVE) mg/dL Urine Ketones Negative (NEGATIVE) mg/dL Urine Occult Blood Negative (NEGATIVE) Urine Nitrite Negative (NEGATIVE) Urine Bilirubin Negative (NEGATIVE) Urine Urobilinogen 0.2 (0.2-1.0) EU/dL Ur Leukocyte Esterase Negative (NEGATIVE) Urine RBC Not seen (0-5) Urine WBC Not seen (0-5) Ur Epithelial Cells Not seen Amorphous Sediment Not seen Urine Bacteria Not seen Urine Mucus Not seen Influenza Type A RNA (NEGATIVE) RSV RNA (INAAT) (NEGATIVE) Influenza Type B RNA (NEGATIVE) SARS-CoV-2 RNA (MARIA L) (NEGATIVE) Result Diagrams: 04/12/20 11:36 04/12/20 11:36 Imaging Impressions Last 24 hrs: All of the images below were personally reviewed Chest x-ray-lungs clear with no mass, infiltrate or effusion. CT scan of the abdomen and pelvis-subtle stranding around the tail of the pancreas but no definitive pancreatitis. He has had previous cholecystectomy. He has a couple of cysts off of his kidneys. Liver is fatty. Sepsis Event Note - Evaluation Sepsis Screening Result: No Definite Risk - Focused Exam Vital Signs: Vital Signs Temp Pulse Resp BP Pulse Ox 04/12/20 12:56 72 16 146/95 H 96 04/12/20 10:55 77 17 156/101 H 98 04/12/20 10:26 36.1 C 81 16 155/101 H 98 *Q Meaningful Use (ADM) - VTE Risk Assess *Q Each Risk Factor Represents 1 Point: Age 41 - 59 years, Obesity ( BMI > 25 kg/m2) Total Score 1 Point Risk Factors: 2 Each Risk Factor Represents 2 Points: None Total Score 2 Point Risk Factors: 0 Each Risk Factor Represents 3 Points: None Total Score 3 Point Risk Factors: 0 Each Risk Factor Represents 5 Points: None Total Score 5 Point Risk Factors: 0 Venous Thromboembolism Risk Factor Score *Q: 2 - Problem List (1) Acute pancreatitis SNOMED Code(s): 029166108 ICD Code: K85.90 - ACUTE PANCREATITIS WITHOUT NECROSIS OR INFECTION, UNSP Status: Suspected Current Visit: Yes Qualifiers: Pancreatitis type: unspecified pancreatitis type Acute pancreatitis complication: no infection or necrosis Qualified Code(s): K85.90 - Acute pancreatitis without necrosis or infection, unspecified (2) Type 2 diabetes mellitus with hyperglycemia SNOMED Code(s): 996042696927314, 939878382292230 ICD Code: E11.65 - TYPE 2 DIABETES MELLITUS WITH HYPERGLYCEMIA Status: Acute Current Visit: Yes Qualifiers: Diabetes mellitus intermediate frame tender insulin use: with nursing home use Qualified Code(s): E11.65 - Type 2 diabetes mellitus with hyperglycemia; Z79.4 - terminal block assembler (current) use of insulin (3) Coronary artery disease SNOMED Code(s): 66475683 ICD Code: I25.10 - ATHSCL HEART DISEASE OF [place] CORONARY ARTERY W/O ANG PCT RS Status: Chronic Current Visit: Yes Qualifiers: Coronary Disease-Associated Artery/Lesion type: [place] artery [place] vs. transplanted heart: [place] heart Associated angina: without angina Qualified Code(s): I25.10 - Atherosclerotic heart disease of [place] coronary artery without angina pectoris (4) SLAON (obstructive sleep apnea) SNOMED Code(s): 95795903 ICD Code: G47.33 - OBSTRUCTIVE SLEEP APNEA (ADULT) (PEDIATRIC) Status: Chronic Current Visit: No (5) Tobacco dependence SNOMED Code(s): 15899998 ICD Code: F17.200 - NICOTINE DEPENDENCE, UNSPECIFIED, UNCOMPLICATED Status: Chronic Current Visit: No Problem List Initiated/Reviewed/Updated: Yes Orders Last 24hrs: Active Orders 24 hr Category Date Time Status Patient Status Manage Transfer [TRANSFER] Routine ADT 04/12/20 14:21 Ordered EKG Documentation Completion [RC] ASDIRECTED Care 04/12/20 11:13 Active Peripheral IV Care [RC] . DIRECTED Care 04/12/20 11:13 Active Sodium Chloride 0.9% [Normal Saline] 1,000 ml Med 04/12/20 14:30 Ordered IV ASDIRECTED Sodium Chloride 0.9% [Normal Saline] 89 ml Med 04/12/20 11:45 Active IV ASDIRECTED Sodium Chloride 0.9% [Saline Flush] Med 04/12/20 11:12 Active 10 ml FLUSH ASDIRECTED PRN Peripheral IV Insertion Adult [OM.PC] Urgent Oth 04/12/20 11:12 Ordered Resuscitation Status Routine Resus Stat 04/12/20 14:23 Ordered EKG 12 Lead [EK] Stat Ther 04/12/20 11:13 Ordered Medication Orders Sodium Chloride (Normal Saline) 89 mls @ 3.5 mls/sec IV ASDIRECTED PREET Last Admin: 04/12/20 12:02 Dose: 3.5 mls/sec Documented by: DECRMIC Sodium Chloride (Normal Saline) 1,000 mls @ 100 mls/hr IV ASDIRECTED PREET Sodium Chloride (Saline Flush) 10 ml FLUSH ASDIRECTED PRN PRN Reason: Keep Vein Open Assessment/Plan Comment:: ASSESSMENT AND PLAN - Epigastric abdominal pain, suspect pancreatitis-differential includes peptic ulcer disease versus gastritis. CT scan unrevealing. Lipase only mildly elevated. Symptoms present for 2 weeks. He has had increased heartburn. -IV fluids -PPI -Symptomatic management -Ice chips tonight, n.p.o. after midnight -EGD in the morning -Repeat lipase in the morning Type 2 diabetes mellitus with [id number] diabetes. Patient reports good control but he has significant hyperglycemia today and he has not been checking blood sugars. He will be n.p.o. after midnight -Continue long-acting insulin at bedtime -Hold NPH -Sliding scale insulin -A1c in the morning Tobacco dependence-he does report some interest in quitting and is trying to cut down and quit on his own along with the help of bupropion. Coronary artery disease-stable with no active anginal symptoms. -Continue medical management Maintenance issues - - DVT prophylaxis -mechanical - GI prophylaxis -PPI - Nutrition -nothing by mouth - Coll[place] catheter -not indicated CODE STATUS -full code Admission justification -this patient will be admitted for inpatient services and is medically appropriate meeting medical necessity for inpatient admission as outlined in my documentation. I reasonably expect the patient will require inpatient services that span a period time over 2 midnights. I reasonably expect this patient to be discharged or transferred within 96 hours [facility]. Disposition -I would anticipate discharge home after the hospital stay Primary care physician - Kelly Regalado M.D. - Mortality Measure Prognosis:: Good
[2020-04-12] MEDS ORDERED: Sodium Chloride 0.9% 1,000 ML IV SCH ×2 (14:30→23:07)
[2020-04-12] MEDS ORDERED: LORazepam 2 MG/ML SDV IVPUSH PRN (15:23)
[2020-04-12] MEDS ORDERED: Magnesium Hydroxide 400 MG/5 ML Susp 30 ML Cup PO PRN (15:23)
[2020-04-12] MEDS ORDERED: Ondansetron 4 MG/2 ML SDV IV PRN (15:23)
[2020-04-12] MEDS ORDERED: Ondansetron 4 MG Tab.DIS PO PRN (15:23)
[2020-04-12] MEDS: Pantoprazole 40 MG Vial IV SCH (16:41)
[2020-04-12] MEDS: Insulin Lispro 100 Unit/ML 3 ML KwikPen SUBCUT SCH ×2 (16:54→21:34)
[2020-04-12] MEDS: HYDROmorphone 1 MG/ML Syringe IVPUSH PRN (19:39)
[2020-04-12] MEDS: Acetaminophen 325 MG Tab PO PRN (19:55)
[2020-04-12] MEDS ORDERED: Non-Formulary Medication 1 Each (Trazodone [Trazodone] 100 MG) PO SCH (21:00)
[2020-04-12] MEDS: traZODone 50 MG Tab PO SCH (21:19)
[2020-04-12] MEDS: atorvaSTATin 20 MG Tab PO SCH (21:19)
[2020-04-12] MEDS: Insulin Glargine,Human Rec. Analog 100 Units/ML 3 ML Pen SUBCUT SCH (21:34)
[2020-04-12] MEDS ORDERED: Dextrose 5%-0.9% NaCl 1,000 ML IV SCH (23:15)
[2020-04-13] MEDS: Pantoprazole 40 MG Vial IV SCH (04:03)
[2020-04-13] MEDS: Acetaminophen 325 MG Tab PO PRN ×2 (04:20→21:19)
[2020-04-13] MEDS: HYDROmorphone 1 MG/ML Syringe IVPUSH PRN (04:21)
[2020-04-13 05:16] LABS: HEMOGLOBIN A1C 9.4 % (4.5-6.2)
[2020-04-13] MEDS: Insulin Lispro 100 Unit/ML 3 ML KwikPen SUBCUT SCH ×4 (07:25→21:15)
[2020-04-13] MEDS ORDERED: Levothyroxine 25 MCG Tab PO SCH (07:30)
[2020-04-13] MEDS ORDERED: fentaNYL 100 MCG/2 ML SDV ONE (08:38)
[2020-04-13] MEDS ORDERED: Midazolam 1 MG/ML 2 ML SDV ONE (08:38)
[2020-04-13] MEDS ORDERED: Propofol 200 MG/20 ML SDV ONE (08:38)
--- NOTE | 2020-04-13 09:41 | PCM.PN ---
- General Info Date of Service: 04/13/20 Subjective Update: There were no acute events overnight. Blood sugar has come down nicely and he did require a small amount of D5 infusion while he was n.p.o. Abdominal pain is better and lipase is now normal. No nausea. EGD this morning was unremarkable. He has not had any fevers. Tolerating clear liquids so far. Functional Status: Reports: Pain Controlled - Review of Systems General: Denies: Fever Gastrointestinal: Denies: Abdominal Pain, Nausea - Patient Data Vitals - Most Recent: Last Vital Signs Temp 36.1 C 04/13/20 03:00 Pulse 65 04/13/20 03:00 Resp 16 04/13/20 03:00 BP 136/85 04/13/20 03:00 Pulse Ox 95 04/13/20 03:00 Weight - Most Recent: 129.8 kg I&O - Last 24 Hours: Intake & Output 04/12/20 04/13/20 04/13/20 22:59 06:59 14:59 Intake Total 299 1078 Balance 299 1078 Lab Results Last 24 Hours: Laboratory Results - last 24 hr 04/12/20 04/12/20 04/12/20 Range/Units 11:14 11:36 11:36 WBC 9.1 (4.5-11.0) K/uL RBC 5.27 (4.30-5.90) M/uL Hgb 16.4 H (12.0-15.0) g/dL Hct 48.3 (40.0-54.0) % MCV 92 (80-98) fL MCH 31 (27-31) pg MCHC 34 (32-36) % Plt Count 262 (150-400) K/uL Neut % (Auto) 66 (36-66) % Lymph % (Auto) 23 L (24-44) % [place] % (Auto) 10 H (2-6) % Eos % (Auto) 1 L (2-4) % Baso % (Auto) 1 (0-1) % Sodium 136 L (140-148) mmol/L Potassium 4.2 (3.6-5.2) mmol/L Chloride 98 L (100-108) mmol/L Carbon Dioxide 27 (21-32) mmol/L Anion Gap 15.2 H (5.0-14.0) mmol/L BUN 21 H (7-18) mg/dL Creatinine 1.3 (0.8-1.3) mg/dL Est Cr Clr Drug Dosing 65.16 mL/min Estimated GFR (MDRD) 57 L (>60) Glucose 355 H (74-106) mg/dL Hemoglobin A1c (4.5-6.2) % Lactic Acid (0.4-2.0) mmol/L Calcium 9.0 (8.5-10.1) mg/dL Total Bilirubin 0.3 (0.2-1.0) mg/dL AST 10 L (15-37) U/L ALT 18 (12-78) U/L Alkaline Phosphatase 154 H (46-116) U/L Troponin I < 0.017 (0.000-0.056) ng/mL Total Protein 7.8 (6.4-8.2) g/dL Albumin 3.9 (3.4-5.0) g/dL Globulin 3.9 H (2.3-3.5) g/dL Albumin/Globulin Ratio 1.0 L (1.2-2.2) Lipase 727 H (73-393) U/L Urine Color (YELLOW) Urine Appearance (CLEAR) Urine pH (5.0-8.0) Ur Specific [place] (1.008-1.030) Urine Protein (NEGATIVE) mg/dL Urine Glucose (UA) (NEGATIVE) mg/dL Urine Ketones (NEGATIVE) mg/dL Urine Occult Blood (NEGATIVE) Urine Nitrite (NEGATIVE) Urine Bilirubin (NEGATIVE) Urine Urobilinogen (0.2-1.0) EU/dL Ur Leukocyte Esterase (NEGATIVE) Urine RBC (0-5) Urine WBC (0-5) Ur Epithelial Cells Amorphous Sediment Urine Bacteria Urine Mucus Influenza Type A RNA Negative (NEGATIVE) RSV RNA (INAAT) Negative (NEGATIVE) Influenza Type B RNA Negative (NEGATIVE) SARS-CoV-2 RNA (MARIA L) Negative (NEGATIVE) 04/12/20 04/12/20 04/13/20 Range/Units 11:36 11:47 04:10 WBC 9.9 (4.5-11.0) K/uL RBC 4.88 (4.30-5.90) M/uL Hgb 15.2 H (12.0-15.0) g/dL Hct 45.0 (40.0-54.0) % MCV 92 (80-98) fL MCH 31 (27-31) pg MCHC 34 (32-36) % Plt Count 248 (150-400) K/uL Neut % (Auto) (36-66) % Lymph % (Auto) (24-44) % [place] % (Auto) (2-6) % Eos % (Auto) (2-4) % Baso % (Auto) (0-1) % Sodium (140-148) mmol/L Potassium (3.6-5.2) mmol/L Chloride (100-108) mmol/L Carbon Dioxide (21-32) mmol/L Anion Gap (5.0-14.0) mmol/L BUN (7-18) mg/dL Creatinine (0.8-1.3) mg/dL Est Cr Clr Drug Dosing mL/min Estimated GFR (MDRD) (>60) Glucose (74-106) mg/dL Hemoglobin A1c (4.5-6.2) % Lactic Acid 1.2 (0.4-2.0) mmol/L Calcium (8.5-10.1) mg/dL Total Bilirubin (0.2-1.0) mg/dL AST (15-37) U/L ALT (12-78) U/L Alkaline Phosphatase (46-116) U/L Troponin I (0.000-0.056) ng/mL Total Protein (6.4-8.2) g/dL Albumin (3.4-5.0) g/dL Globulin (2.3-3.5) g/dL Albumin/Globulin Ratio (1.2-2.2) Lipase (73-393) U/L Urine Color Yellow (YELLOW) Urine Appearance Clear (CLEAR) Urine pH 6.0 (5.0-8.0) Ur Specific [place] 1.020 (1.008-1.030) Urine Protein Negative (NEGATIVE) mg/dL Urine Glucose (UA) 500 H (NEGATIVE) mg/dL Urine Ketones Negative (NEGATIVE) mg/dL Urine Occult Blood Negative (NEGATIVE) Urine Nitrite Negative (NEGATIVE) Urine Bilirubin Negative (NEGATIVE) Urine Urobilinogen 0.2 (0.2-1.0) EU/dL Ur Leukocyte Esterase Negative (NEGATIVE) Urine RBC Not seen (0-5) Urine WBC Not seen (0-5) Ur Epithelial Cells Not seen Amorphous Sediment Not seen Urine Bacteria Not seen Urine Mucus Not seen Influenza Type A RNA (NEGATIVE) RSV RNA (INAAT) (NEGATIVE) Influenza Type B RNA (NEGATIVE) SARS-CoV-2 RNA (MARIA L) (NEGATIVE) 04/13/20 04/13/20 Range/Units 04:10 04:10 WBC (4.5-11.0) K/uL RBC (4.30-5.90) M/uL Hgb (12.0-15.0) g/dL Hct (40.0-54.0) % MCV (80-98) fL MCH (27-31) pg MCHC (32-36) % Plt Count (150-400) K/uL Neut % (Auto) (36-66) % Lymph % (Auto) (24-44) % [place] % (Auto) (2-6) % Eos % (Auto) (2-4) % Baso % (Auto) (0-1) % Sodium 142 (140-148) mmol/L Potassium 3.5 L (3.6-5.2) mmol/L Chloride 104 (100-108) mmol/L Carbon Dioxide 29 (21-32) mmol/L Anion Gap 12.5 (5.0-14.0) mmol/L BUN 14 (7-18) mg/dL Creatinine 1.0 (0.8-1.3) mg/dL Est Cr Clr Drug Dosing 84.37 mL/min Estimated GFR (MDRD) > 60 (>60) Glucose 112 H (74-106) mg/dL Hemoglobin A1c 9.4 H (4.5-6.2) % Lactic Acid (0.4-2.0) mmol/L Calcium 8.3 L (8.5-10.1) mg/dL Total Bilirubin 0.5 D (0.2-1.0) mg/dL AST 16 (15-37) U/L ALT 15 (12-78) U/L Alkaline Phosphatase 86 (46-116) U/L Troponin I (0.000-0.056) ng/mL Total Protein 6.4 (6.4-8.2) g/dL Albumin 3.3 L (3.4-5.0) g/dL Globulin 3.1 (2.3-3.5) g/dL Albumin/Globulin Ratio 1.1 L (1.2-2.2) Lipase 340 (73-393) U/L Urine Color (YELLOW) Urine Appearance (CLEAR) Urine pH (5.0-8.0) Ur Specific [place] (1.008-1.030) Urine Protein (NEGATIVE) mg/dL Urine Glucose (UA) (NEGATIVE) mg/dL Urine Ketones (NEGATIVE) mg/dL Urine Occult Blood (NEGATIVE) Urine Nitrite (NEGATIVE) Urine Bilirubin (NEGATIVE) Urine Urobilinogen (0.2-1.0) EU/dL Ur Leukocyte Esterase (NEGATIVE) Urine RBC (0-5) Urine WBC (0-5) Ur Epithelial Cells Amorphous Sediment Urine Bacteria Urine Mucus Influenza Type A RNA (NEGATIVE) RSV RNA (INAAT) (NEGATIVE) Influenza Type B RNA (NEGATIVE) SARS-CoV-2 RNA (MARIA L) (NEGATIVE) Med Orders - Current: Current Medications Acetaminophen (Tylenol) 650 mg PO Q4H PRN PRN Reason: Pain (Mild 1-3)/fever Last Admin: 04/13/20 04:20 Dose: 650 mg Documented by: Amlodipine Besylate (Norvasc) 10 mg PO DAILY [facility] Aspirin (Halfprin) 81 mg PO DAILY [facility] Atorvastatin Calcium (Lipitor) 40 mg PO BEDTIME [facility] Last Admin: 04/12/20 21:19 Dose: 40 mg Documented by: Hydromorphone HCl (Dilaudid) 1 mg IVPUSH Q2H PRN PRN Reason: Pain Last Admin: 04/13/20 04:21 Dose: 1 mg Documented by: Sodium Chloride (Normal Saline) 1,000 mls @ 50 mls/hr IV ASDIRECTED [facility] Last Admin: 04/12/20 23:12 Dose: 50 mls/hr Documented by: Dextrose/Sodium Chloride (Dextrose 5%-Normal Saline) 1,000 mls @ 50 mls/hr IV ASDIRECTED [facility] Last Admin: 04/12/20 23:12 Dose: 50 mls/hr Documented by: Insulin Glargine (Lantus Solostar) 10 units SUBCUT BEDTIME [facility] Last Admin: 04/12/20 21:34 Dose: Not Given Documented by: Insulin Human Lispro (Humalog) 0 unit SUBCUT QIDACANDBED [facility]; Protocol Last Admin: 04/13/20 07:25 Dose: Not Given Documented by: Levothyroxine Sodium (Levothyroxine) 112 mcg PO ACBREAKFAST [facility] Lisinopril (Prinivil) 40 mg PO DAILY [facility] Lorazepam (Ativan) 0.5 mg IVPUSH Q4H PRN PRN Reason: Nausea/Vomiting Magnesium Hydroxide (Milk Of Magnesia) 30 ml PO Q12H PRN PRN Reason: Constipation Metoprolol Succinate (Toprol Xl) 200 mg PO DAILY [facility] Ondansetron HCl (Zofran) 4 mg IV Q6H PRN PRN Reason: Nausea/Vomiting Ondansetron HCl (Zofran Odt) 4 mg PO Q6H PRN PRN Reason: Nausea able to take PO Pantoprazole Sodium (Protonix Iv) 40 mg IV Q12H [facility] Last Admin: 04/13/20 04:03 Dose: 40 mg Documented by: Senna/Docusate Sodium (Senna Plus) 1 tab PO BID PRN PRN Reason: Constipation Sodium Chloride (Saline Flush) 10 ml FLUSH ASDIRECTED PRN PRN Reason: Keep Vein Open Trazodone HCl (Trazodone) 100 mg PO BEDTIME [facility] Last Admin: 04/12/20 21:19 Dose: 100 mg Documented by: Discontinued Medications Fentanyl (Sublimaze) 50 mcg IVPUSH ONETIME ONE Stop: 04/12/20 11:18 Last Admin: 04/12/20 11:55 Dose: 50 mcg Documented by: Fentanyl (Sublimaze) Confirm Administered Dose 100 mcg .ROUTE .STK-MED ONE Stop: 04/13/20 08:39 Hydromorphone HCl (Dilaudid) 1 mg IVPUSH ONETIME ONE Stop: 04/12/20 12:47 Last Admin: 04/12/20 12:52 Dose: 1 mg Documented by: Hydromorphone HCl (Dilaudid) 1 mg IVPUSH ONETIME ONE Stop: 04/12/20 14:21 Last Admin: 04/12/20 14:31 Dose: 1 mg Documented by: Sodium Chloride (Normal Saline) 1,000 mls @ 500 mls/hr IV .BOLUS STA Stop: 04/12/20 13:11 Last Admin: 04/12/20 11:56 Dose: 500 mls/hr Documented by: Sodium Chloride (Normal Saline) 89 mls @ 3.5 mls/sec IV ASDIRECTED PREET Stop: 04/12/20 18:00 Last Admin: 04/12/20 12:02 Dose: 3.5 mls/sec Documented by: Sodium Chloride (Normal Saline) 1,000 mls @ 100 mls/hr IV ASDIRECTED [facility] Last Admin: 04/12/20 14:32 Dose: 100 mls/hr Documented by: Iopamidol (Isovue-300 (61%)) 150 ml IV ONETIME ONE Stop: 04/12/20 11:32 Last Admin: 04/12/20 12:02 Dose: 150 ml Documented by: Midazolam HCl (Versed 1 Mg/Ml) Confirm Administered Dose 2 mg .ROUTE .STK-MED ON E Stop: 04/13/20 08:39 Pneumococcal Polyvalent Vaccine (Pneumovax 23) 0.5 ml IM .ONCE ONE Stop: 04/13/20 10:01 Propofol (Diprivan 20 Ml) Confirm Administered Dose 200 mg .ROUTE .STK-MED ONE Stop: 04/13/20 08:39 Sodium Chloride (Saline Flush) 10 ml FLUSH ONETIME ONE Stop: 04/12/20 11:32 Last Admin: 04/12/20 11:57 Dose: 10 ml Documented by: - Exam Quality Assessment: Supplemental Oxygen General: Alert, Oriented, Cooperative, No Acute Distress, Sedated (mildly ) Lungs: Normal Respiratory Effort GI/Abdominal Exam: No Distention Extremities: No Pedal Edema Psy/Mental Status: Alert, Normal Affect - Patient Data Lab Results Last 24 hrs: Laboratory Results - last 24 hr 04/12/20 04/12/20 04/12/20 Range/Units 11:14 11:36 11:36 WBC 9.1 (4.5-11.0) K/uL RBC 5.27 (4.30-5.90) M/uL Hgb 16.4 H (12.0-15.0) g/dL Hct 48.3 (40.0-54.0) % MCV 92 (80-98) fL MCH 31 (27-31) pg MCHC 34 (32-36) % Plt Count 262 (150-400) K/uL Neut % (Auto) 66 (36-66) % Lymph % (Auto) 23 L (24-44) % [place] % (Auto) 10 H (2-6) % Eos % (Auto) 1 L (2-4) % Baso % (Auto) 1 (0-1) % Sodium 136 L (140-148) mmol/L Potassium 4.2 (3.6-5.2) mmol/L Chloride 98 L (100-108) mmol/L Carbon Dioxide 27 (21-32) mmol/L Anion Gap 15.2 H (5.0-14.0) mmol/L BUN 21 H (7-18) mg/dL Creatinine 1.3 (0.8-1.3) mg/dL Est Cr Clr Drug Dosing 65.16 mL/min Estimated GFR (MDRD) 57 L (>60) Glucose 355 H (74-106) mg/dL Hemoglobin A1c (4.5-6.2) % Lactic Acid (0.4-2.0) mmol/L Calcium 9.0 (8.5-10.1) mg/dL Total Bilirubin 0.3 (0.2-1.0) mg/dL AST 10 L (15-37) U/L ALT 18 (12-78) U/L Alkaline Phosphatase 154 H (46-116) U/L Troponin I < 0.017 (0.000-0.056) ng/mL Total Protein 7.8 (6.4-8.2) g/dL Albumin 3.9 (3.4-5.0) g/dL Globulin 3.9 H (2.3-3.5) g/dL Albumin/Globulin Ratio 1.0 L (1.2-2.2) Lipase 727 H (73-393) U/L Urine Color (YELLOW) Urine Appearance (CLEAR) Urine pH (5.0-8.0) Ur Specific [place] (1.008-1.030) Urine Protein (NEGATIVE) mg/dL Urine Glucose (UA) (NEGATIVE) mg/dL Urine Ketones (NEGATIVE) mg/dL Urine Occult Blood (NEGATIVE) Urine Nitrite (NEGATIVE) Urine Bilirubin (NEGATIVE) Urine Urobilinogen (0.2-1.0) EU/dL Ur Leukocyte Esterase (NEGATIVE) Urine RBC (0-5) Urine WBC (0-5) Ur Epithelial Cells Amorphous Sediment Urine Bacteria Urine Mucus Influenza Type A RNA Negative (NEGATIVE) RSV RNA (INAAT) Negative (NEGATIVE) Influenza Type B RNA Negative (NEGATIVE) SARS-CoV-2 RNA (MARIA L) Negative (NEGATIVE) 04/12/20 04/12/20 04/13/20 Range/Units 11:36 11:47 04:10 WBC 9.9 (4.5-11.0) K/uL RBC 4.88 (4.30-5.90) M/uL Hgb 15.2 H (12.0-15.0) g/dL Hct 45.0 (40.0-54.0) % MCV 92 (80-98) fL MCH 31 (27-31) pg MCHC 34 (32-36) % Plt Count 248 (150-400) K/uL Neut % (Auto) (36-66) % Lymph % (Auto) (24-44) % [place] % (Auto) (2-6) % Eos % (Auto) (2-4) % Baso % (Auto) (0-1) % Sodium (140-148) mmol/L Potassium (3.6-5.2) mmol/L Chloride (100-108) mmol/L Carbon Dioxide (21-32) mmol/L Anion Gap (5.0-14.0) mmol/L BUN (7-18) mg/dL Creatinine (0.8-1.3) mg/dL Est Cr Clr Drug Dosing mL/min Estimated GFR (MDRD) (>60) Glucose (74-106) mg/dL Hemoglobin A1c (4.5-6.2) % Lactic Acid 1.2 (0.4-2.0) mmol/L Calcium (8.5-10.1) mg/dL Total Bilirubin (0.2-1.0) mg/dL AST (15-37) U/L ALT (12-78) U/L Alkaline Phosphatase (46-116) U/L Troponin I (0.000-0.056) ng/mL Total Protein (6.4-8.2) g/dL Albumin (3.4-5.0) g/dL Globulin (2.3-3.5) g/dL Albumin/Globulin Ratio (1.2-2.2) Lipase (73-393) U/L Urine Color Yellow (YELLOW) Urine Appearance Clear (CLEAR) Urine pH 6.0 (5.0-8.0) Ur Specific [place] 1.020 (1.008-1.030) Urine Protein Negative (NEGATIVE) mg/dL Urine Glucose (UA) 500 H (NEGATIVE) mg/dL Urine Ketones Negative (NEGATIVE) mg/dL Urine Occult Blood Negative (NEGATIVE) Urine Nitrite Negative (NEGATIVE) Urine Bilirubin Negative (NEGATIVE) Urine Urobilinogen 0.2 (0.2-1.0) EU/dL Ur Leukocyte Esterase Negative (NEGATIVE) Urine RBC Not seen (0-5) Urine WBC Not seen (0-5) Ur Epithelial Cells Not seen Amorphous Sediment Not seen Urine Bacteria Not seen Urine Mucus Not seen Influenza Type A RNA (NEGATIVE) RSV RNA (INAAT) (NEGATIVE) Influenza Type B RNA (NEGATIVE) SARS-CoV-2 RNA (MARIA L) (NEGATIVE) 04/13/20 04/13/20 Range/Units 04:10 04:10 WBC (4.5-11.0) K/uL RBC (4.30-5.90) M/uL Hgb (12.0-15.0) g/dL Hct (40.0-54.0) % MCV (80-98) fL MCH (27-31) pg MCHC (32-36) % Plt Count (150-400) K/uL Neut % (Auto) (36-66) % Lymph % (Auto) (24-44) % [place] % (Auto) (2-6) % Eos % (Auto) (2-4) % Baso % (Auto) (0-1) % Sodium 142 (140-148) mmol/L Potassium 3.5 L (3.6-5.2) mmol/L Chloride 104 (100-108) mmol/L Carbon Dioxide 29 (21-32) mmol/L Anion Gap 12.5 (5.0-14.0) mmol/L BUN 14 (7-18) mg/dL Creatinine 1.0 (0.8-1.3) mg/dL Est Cr Clr Drug Dosing 84.37 mL/min Estimated GFR (MDRD) > 60 (>60) Glucose 112 H (74-106) mg/dL Hemoglobin A1c 9.4 H (4.5-6.2) % Lactic Acid (0.4-2.0) mmol/L Calcium 8.3 L (8.5-10.1) mg/dL Total Bilirubin 0.5 D (0.2-1.0) mg/dL AST 16 (15-37) U/L ALT 15 (12-78) U/L Alkaline Phosphatase 86 (46-116) U/L Troponin I (0.000-0.056) ng/mL Total Protein 6.4 (6.4-8.2) g/dL Albumin 3.3 L (3.4-5.0) g/dL Globulin 3.1 (2.3-3.5) g/dL Albumin/Globulin Ratio 1.1 L (1.2-2.2) Lipase 340 (73-393) U/L Urine Color (YELLOW) Urine Appearance (CLEAR) Urine pH (5.0-8.0) Ur Specific [place] (1.008-1.030) Urine Protein (NEGATIVE) mg/dL Urine Glucose (UA) (NEGATIVE) mg/dL Urine Ketones (NEGATIVE) mg/dL Urine Occult Blood (NEGATIVE) Urine Nitrite (NEGATIVE) Urine Bilirubin (NEGATIVE) Urine Urobilinogen (0.2-1.0) EU/dL Ur Leukocyte Esterase (NEGATIVE) Urine RBC (0-5) Urine WBC (0-5) Ur Epithelial Cells Amorphous Sediment Urine Bacteria Urine Mucus Influenza Type A RNA (NEGATIVE) RSV RNA (INAAT) (NEGATIVE) Influenza Type B RNA (NEGATIVE) SARS-CoV-2 RNA (MARIA L) (NEGATIVE) Result Diagrams: 04/13/20 04:10 04/13/20 04:10 Sepsis Event Note - Evaluation Sepsis Screening Result: No Definite Risk - Focused Exam Vital Signs: Vital Signs Temp Pulse Resp BP Pulse Ox 04/13/20 03:00 36.1 C 65 16 136/85 95 04/12/20 23:00 36.3 C 63 16 115/76 92 L - Problem List & Annotations (1) Acute pancreatitis SNOMED Code(s): 485610390 Code(s): K85.90 - ACUTE PANCREATITIS WITHOUT NECROSIS OR INFECTION, UNSP Status: Suspected Current Visit: Yes Qualifiers: Pancreatitis type: unspecified pancreatitis type Acute pancreatitis complication: no infection or necrosis Qualified Code(s): K85.90 - Acute pancreatitis without necrosis or infection, unspecified (2) Type 2 diabetes mellitus with hyperglycemia SNOMED Code(s): 086625956086569, 110703959010572 Code(s): E11.65 - TYPE 2 DIABETES MELLITUS WITH HYPERGLYCEMIA Status: Acute Current Visit: Yes Qualifiers: Diabetes mellitus roasterman insulin use: with group home use Qualified Code(s): E11.65 - Type 2 diabetes mellitus with hyperglycemia; Z79.4 - jail (current) use of insulin (3) Coronary artery disease SNOMED Code(s): 76602738 Code(s): I25.10 - ATHSCL HEART DISEASE OF [place] CORONARY ARTERY W/O ANG PCTRS Status: Chronic Current Visit: Yes Qualifiers: Coronary Disease-Associated Artery/Lesion type: [place] artery [place] vs. transplanted heart: [place] heart Associated angina: without angina Qualified Code(s): I25.10 - Atherosclerotic heart disease of [place] coronary artery without angina pectoris (4) SLOAN (obstructive sleep apnea) SNOMED Code(s): 87845019 Code(s): G47.33 - OBSTRUCTIVE SLEEP APNEA (ADULT) (PEDIATRIC) Status: Chronic Current Visit: No (5) Tobacco dependence SNOMED Code(s): 43075569 Code(s): F17.200 - NICOTINE DEPENDENCE, UNSPECIFIED, UNCOMPLICATED Status: Chronic Current Visit: No - Problem List Review Problem List Initiated/Reviewed/Updated: Yes - My Orders Last 24 Hours: My Active Orders 04/12/20 14:23 Resuscitation Status Routine 04/12/20 15:23 Acetaminophen [TylenoL] 650 mg PO Q4H PRN Docusate Sodium/Sennosides [Senna Plus] 1 tab PO BID PRN HYDROmorphone [Dilaudid] 1 mg IVPUSH Q2H PRN LORazepam [Ativan] 0.5 mg IVPUSH Q4H PRN Magnesium Hydroxide [Milk of Magnesia] 30 ml PO Q12H PRN Ondansetron [Zofran ODT] 4 mg PO Q6H PRN Ondansetron [Zofran] 4 mg IV Q6H PRN 04/12/20 15:23 Patient Status [ADT] Routine Antiembolic Devices [RC] .Routine Communication Order [RC] PRN Communication Order [RC] PRN Diabetes Education [RC] Click to Edit Intake and Output [RC] QSHIFT Notify Provider Consults [RC] ASDIRECTED Notify Provider Vital Signs [RC] ASDIRECTED Notify Provider [RC] PRN Oxygen Therapy [RC] PRN Up ad Leticia [RC] ASDIRECTED VTE/DVT Education [RC] Per Unit Routine Vital Signs [RC] Q4H Consult to Physician [CONS] Routine Sequential Compression Device [OM.PC] Routine 04/12/20 16:00 Pantoprazole [ProTONIX IV] 40 mg IV Q12H 04/12/20 Dinner Nothing per Oral After Midnight Diet [DIET] Insulin Lispro [HumaLOG] See Protocol SUBCUT QIDACANDBED 04/12/20 21:00 Insulin Glarg,Human.Rec.Analog [LantUS Solostar] 10 units SUBCUT BEDTIME atorvaSTATin [Lipitor] 40 mg PO BEDTIME traZODone 100 mg PO BEDTIME 04/12/20 21:25 Blood Glucose Check, Bedside [RC] QIDACANDBED 04/12/20 23:07 Sodium Chloride 0.9% [Normal Saline] 1,000 ml IV ASDIRECTED 04/12/20 23:15 Dextrose 5%-0.9% NaCl [Dextrose 5%-Normal Saline] 1,000 ml IV ASDIRECTED 04/13/20 07:30 Levothyroxine 112 mcg PO ACBREAKFAST 04/13/20 09:00 Aspirin [Halfprin] 81 mg PO DAILY Metoprolol Succinate [Toprol XL] 200 mg PO DAILY amLODIPine [Norvasc] 10 mg PO DAILY lisinopriL [Prinivil] 40 mg PO DAILY 04/13/20 Lunch Clear Liquid Diet [DIET] 04/14/20 05:00 BASIC METABOLIC PANEL,BMP [CHEM] Timed LIPASE [CHEM] Timed 04/14/20 07:30 GLUCOSE POC LAB TO COLLECT JPM [POC] QIDACANDBED 04/14/20 11:30 GLUCOSE POC LAB TO COLLECT JPM [POC] QIDACANDBED 04/14/20 16:30 GLUCOSE POC LAB TO COLLECT JPM [POC] QIDACANDBED 04/14/20 21:00 GLUCOSE POC LAB TO COLLECT JPM [POC] QIDACANDBED 04/15/20 07:30 GLUCOSE POC LAB TO COLLECT JPM [POC] QIDACANDBED 04/15/20 11:30 GLUCOSE POC LAB TO COLLECT JPM [POC] QIDACANDBED 04/15/20 16:30 GLUCOSE POC LAB TO COLLECT JPM [POC] QIDACANDBED 04/15/20 21:00 GLUCOSE POC LAB TO COLLECT JPM [POC] QIDACANDBED 04/16/20 07:30 GLUCOSE POC LAB TO COLLECT JPM [POC] QIDACANDBED 04/16/20 11:30 GLUCOSE POC LAB TO COLLECT JPM [POC] QIDACANDBED 04/16/20 16:30 GLUCOSE POC LAB TO COLLECT JPM [POC] QIDACANDBED 04/16/20 21:00 GLUCOSE POC LAB TO COLLECT JPM [POC] QIDACANDBED 04/17/20 07:30 GLUCOSE POC LAB TO COLLECT JPM [POC] QIDACANDBED 04/17/20 11:30 GLUCOSE POC LAB TO COLLECT JPM [POC] QIDACANDBED 04/17/20 16:30 GLUCOSE POC LAB TO COLLECT JPM [POC] QIDACANDBED 04/17/20 21:00 GLUCOSE POC LAB TO COLLECT JPM [POC] QIDACANDBED 04/18/20 07:30 GLUCOSE POC LAB TO COLLECT JPM [POC] QIDACANDBED - Plan Plan:: ASSESSMENT AND PLAN - Acute pancreatitis-EGD unremarkable. Previous fairly extensive work-up was unrevealing for cause. Could be related to smoking. Low chance that it is related to his lisinopril but antihypertensive adjustment could be considered. Lipase normal. Pain improved. -Saline lock IV -Symptomatic management -Clear liquids, advance this evening if tolerating -Repeat lipase in the morning Type 2 diabetes mellitus with epkxnowfugkkz-axhwtwh-uiwpwtyzl diabetes. Hemoglobin A1c 9.4. -Continue long-acting insulin at bedtime -Hold NPH -Sliding scale insulin -A1c in the morning Tobacco dependence-he does report some interest in quitting and is trying to cut down and quit on his own along with the help of bupropion. Coronary artery disease-stable with no active anginal symptoms. -Continue medical management Maintenance issues - - DVT prophylaxis -mechanical - GI prophylaxis -PPI - Nutrition -clear liquids Disposition -I would anticipate discharge home after the hospital stay Primary care physician - Kelly Regalado M.D.
[2020-04-13] MEDS ORDERED: Pneumococcal Polyvalent-23 Vaccine 0.5 ML SDV IM ONE (10:00)
[2020-04-13] MEDS: Aspirin 81 MG Tab.EC PO SCH (10:14)
[2020-04-13] MEDS: amLODIPine 5 MG Tab PO SCH (10:14)
[2020-04-13] MEDS: Levothyroxine 112 MCG Tab PO SCH (10:14)
[2020-04-13] MEDS: Lisinopril 20 MG Tab PO SCH (10:15)
[2020-04-13] MEDS: Metoprolol Succinate 50 MG Tab.ER PO SCH (10:15)
[2020-04-13] MEDS: Potassium Chloride 20 MEQ, Lidocaine 1% 2 ML in Sodium Chloride 0.9% 100 ML IV SCH ×2 (10:48→12:52)
[2020-04-13] MEDS: Insulin Glargine,Human Rec. Analog 100 Units/ML 3 ML Pen SUBCUT SCH (21:15)
[2020-04-13] MEDS: traZODone 50 MG Tab PO SCH (21:16)
[2020-04-13] MEDS: atorvaSTATin 20 MG Tab PO SCH (21:16)
[2020-04-14] MEDS: Insulin Lispro 100 Unit/ML 3 ML KwikPen SUBCUT SCH ×2 (07:47→11:43)
[2020-04-14] MEDS: Levothyroxine 112 MCG Tab PO SCH (07:47)
[2020-04-14] MEDS: Aspirin 81 MG Tab.EC PO SCH (08:07)
[2020-04-14] MEDS: amLODIPine 5 MG Tab PO SCH (08:07)
[2020-04-14] MEDS: Metoprolol Succinate 50 MG Tab.ER PO SCH (08:07)
[2020-04-14 08:08] VITALS: BP 166/90; PULSE 70
[2020-04-14] MEDS: Lisinopril 20 MG Tab PO SCH (08:08)
--- NOTE | 2020-04-14 11:06 | PCM.DCSUM1 ---
Discharge Summary - Hospital Course Brief History: 60-year-old male with history of obesity, insulin-dependent diabetes, tobacco dependence and coronary artery disease who presented with 2 weeks of progressive abdominal pain as well as nausea. He was admitted for management of mild pancreatitis. Diagnosis: Stroke: No - Discharge Data Discharge Date: 04/14/20 Discharge Disposition: Home, Self-Care 01 Condition: Good - Referral to Home Health Primary Care Physician: PCP None - Discharge Diagnosis/Problem(s) (1) Acute pancreatitis SNOMED Code(s): 833726867 ICD Code: K85.90 - ACUTE PANCREATITIS WITHOUT NECROSIS OR INFECTION, UNSP Status: Suspected Current Visit: Yes Qualifiers: Pancreatitis type: unspecified pancreatitis type Acute pancreatitis complication: no infection or necrosis Qualified Code(s): K85.90 - Acute pancreatitis without necrosis or infection, unspecified (2) Type 2 diabetes mellitus with hyperglycemia SNOMED Code(s): 578778691996964, 455703685131014 ICD Code: E11.65 - TYPE 2 DIABETES MELLITUS WITH HYPERGLYCEMIA Status: Acute Current Visit: Yes Qualifiers: Diabetes mellitus fpc insulin use: with fpc use Qualified Code(s): E11.65 - Type 2 diabetes mellitus with hyperglycemia; Z79.4 - watermelon inspector (current) use of insulin (3) Coronary artery disease SNOMED Code(s): 52526287 ICD Code: I25.10 - ATHSCL HEART DISEASE OF [place] CORONARY ARTERY W/O ANG PCTRS Status: Chronic Current Visit: Yes Qualifiers: Coronary Disease-Associated Artery/Lesion type: [place] artery [place] vs. transplanted heart: [place] heart Associated angina: without angina Qualified Code(s): I25.10 - Atherosclerotic heart disease of [place] coronary artery without angina pectoris (4) SLOAN (obstructive sleep apnea) SNOMED Code(s): 85394279 ICD Code: G47.33 - OBSTRUCTIVE SLEEP APNEA (ADULT) (PEDIATRIC) Status: Chronic Current Visit: No (5) Tobacco dependence SNOMED Code(s): 14419683 ICD Code: F17.200 - NICOTINE DEPENDENCE, UNSPECIFIED, UNCOMPLICATED Status: Chronic Current Visit: No - Patient Summary/Data Consults: Consultations 04/12/20 15:23 Consult to Physician [CONS] Routine Consulting Provider: Shawn Hilliard Call Completed to Consulting Physician: Yes Reason for Consult: epigastric pain Person Notified: RW Date Notified: 04/12/20 Special Instructions: EGD in am Hospital Course: Victor Manuel presented to the emergency room with 2 weeks of progressive abdominal pain and some nausea. Work-up in the emergency room was suggestive of a very mild pancreatitis with a mild elevation of his lipase and some slight stranding around the tail of the pancreas. White count was normal and there was no evidence for infection. He was admitted to the hospital and made nothing by mouth status. We provided symptomatic management of pain and nausea as well as IV fluids. The morning after admission he did have an EGD to rule out any sort of gastric or duodenal pathology and this was unremarkable. By the morning after admission his lipase level had normalized. His abdominal pain was much better. We started him on clear liquids and then progressed to full liquids and a regular diet by the next morning. He tolerated these well with no significant abdominal pain. His lipase level has remained normal. He had a previous fairly extensive work-up for pancreatitis which was unremarkable. I am suspicious that this may be related to his smoking. He is aware of this concern and he did receive my strongest recommendation for cessation. He does have medication available at home to help with this and I did provide some additional written information for him. His stable and safe for discharge from a pancreatitis standpoint. Also during the hospital stay we noted hyperglycemia. His hemoglobin A1c was 9.4. We did talk about some healthy eating habits as well as increasing exercise. He had multiple questions about medications to help with diabetes and these will be deferred to his informatics educator. He will be following up with his primary care and hopefully informatics educator in the next few weeks. I did encourage him to keep a food journal so additional recommendations regarding his diet can be made. I did not make any changes to his home medications. - Patient Instructions Diet: Diabetic Diet Activity: As Tolerated Driving: May Drive Today Showering/Bathing: May Shower Notify Provider of: Fever, Increased Pain Other/Special Instructions: 1. You were in the hospital for management of mild acute pancreatitis. The CT scan did not show any other intra-abdominal abnormalities. We did perform an EGD to look for abnormalities in your esophagus and stomach but this was normal. Your condition has been improving with symptomatic management and IV fluids. At this point my highest suspicion is that your pancreatitis may be related to smoking. I give you my strongest recommendation to quit smoking for this reason along with the additional health benefits of reduced risk of cancer, chronic lung disease and heart disease. I have provided you information sheet with some steps to quit smoking. If you would like additional information you can talk to your primary care physician at your follow-up appointment. 2. We did check a hemoglobin A1c during your hospital stay. This was elevated at 9.4. Some things that you can do to help lower this would include eating less carbohydrates as well as increasing her activity. It may be helpful to keep a food journal for the next week so your primary care provider and/or informatics educator can review what you eat in a typical week and provide recommendations. 3. Continue your usual home medications as previously prescribed. - Discharge Plan *PRESCRIPTION DRUG MONITORING PROGRAM REVIEWED*: Not Applicable *COPY OF PRESCRIPTION DRUG MONITORING REPORT IN PATIENT TITI: Not Applicable Tobacco Cessation Medication: Prescription Given (pt has at home) Home Medications: Home Meds Albuterol [Ventolin HFA] 2 puff INH BID PRN 04/21/17 [History] Insulin Isophane NPH, Human [NovoLIN N] 15 unit SUBCUT TID 04/21/17 [History] Lisinopril 40 mg PO DAILY 04/21/17 [History] Metoprolol Succinate 200 mg PO DAILY 04/21/17 [History] amLODIPine Besylate [Amlodipine Besylate] 10 mg PO DAILY 04/21/17 [History] atorvaSTATin Calcium [Atorvastatin Calcium] 40 mg PO BEDTIME 04/21/17 [History] Aspirin [Halfprin] 81 mg PO DAILY 01/27/18 [History] Chromium Amino Acid Chelate [Chromium] 1,000 mcg PO DAILY 01/27/18 [History] Insulin Glarg,Human.Rec.Analog [Lantus Solostar] 10 unit SUBCUT BEDTIME 09/30/19 [History] Levothyroxine 112 mcg PO ACBREAKFAST 04/12/20 [History] traZODone 100 mg PO BEDTIME 04/12/20 [History] Oxygen Therapy Mode: Room Air Patient Handouts: Steps to Quit Smoking, Diabetes Mellitus and Nutrition, Adult Referrals: Kelly Reddy NP [Ordering Only Provider] - (1 -2 weeks - follow-up hospital stay for pancreatitis and hyperglycemia) - Discharge Summary/Plan Comment DC Time >30 min.: No - Patient Data Vitals - Most Recent: Last Vital Signs Temp 36.8 C 04/14/20 07:43 Pulse 70 04/14/20 08:07 Resp 18 04/14/20 07:43 BP 166/90 H 04/14/20 08:08 Pulse Ox 97 04/14/20 07:43 Weight - Most Recent: 129.8 kg I&O - Last 24 hours: Intake & Output 04/13/20 04/14/20 04/14/20 22:59 06:59 14:59 Intake Total 2872 350 Balance 2872 350 Lab Results - Last 24 hrs: Laboratory Results - last 24 hr 04/13/20 04/14/20 04/14/20 Range/Units 20:56 04:25 07:30 Sodium 141 (140-148) mmol/L Potassium 3.9 (3.6-5.2) mmol/L Chloride 104 (100-108) mmol/L Carbon Dioxide 29 (21-32) mmol/L Anion Gap 8.5 (5.0-14.0) mmol/L BUN 10 (7-18) mg/dL Creatinine 1.0 (0.8-1.3) mg/dL Est Cr Clr Drug Dosing 84.37 mL/min Estimated GFR (MDRD) > 60 (>60) Glucose 210 H (74-106) mg/dL POC Glucose 242 H 219 H (74-106) MG/DL Calcium 9.0 (8.5-10.1) mg/dL Lipase 271 (73-393) U/L Med Orders - Current: Current Medications Acetaminophen (Tylenol) 650 mg PO Q4H PRN PRN Reason: Pain (Mild 1-3)/fever Last Admin: 04/13/20 21:19 Dose: 650 mg Documented by: Amlodipine Besylate (Norvasc) 10 mg PO DAILY [facility] Last Admin: 04/14/20 08:07 Dose: 10 mg Documented by: Aspirin (Halfprin) 81 mg PO DAILY [facility] Last Admin: 04/14/20 08:07 Dose: 81 mg Documented by: Atorvastatin Calcium (Lipitor) 40 mg PO BEDTIME [facility] Last Admin: 04/13/20 21:16 Dose: 40 mg Documented by: Hydromorphone HCl (Dilaudid) 1 mg IVPUSH Q2H PRN PRN Reason: Pain Last Admin: 04/13/20 04:21 Dose: 1 mg Documented by: Insulin Glargine (Lantus Solostar) 10 units SUBCUT BEDTIME [facility] Last Admin: 04/13/20 21:15 Dose: 10 units Documented by: Insulin Human Lispro (Humalog) 0 unit SUBCUT QIDACANDBED [facility]; Protocol Last Admin: 04/14/20 07:47 Dose: 6 units Documented by: Levothyroxine Sodium (Levothyroxine) 112 mcg PO ACBREAKFAST [facility] Last Admin: 04/14/20 07:47 Dose: 112 mcg Documented by: Lisinopril (Prinivil) 40 mg PO DAILY [facility] Last Admin: 04/14/20 08:08 Dose: 40 mg Documented by: Lorazepam (Ativan) 0.5 mg IVPUSH Q4H PRN PRN Reason: Nausea/Vomiting Magnesium Hydroxide (Milk Of Magnesia) 30 ml PO Q12H PRN PRN Reason: Constipation Metoprolol Succinate (Toprol Xl) 200 mg PO DAILY [facility] Last Admin: 04/14/20 08:07 Dose: 200 mg Documented by: Ondansetron HCl (Zofran) 4 mg IV Q6H PRN PRN Reason: Nausea/Vomiting Ondansetron HCl (Zofran Odt) 4 mg PO Q6H PRN PRN Reason: Nausea able to take PO Senna/Docusate Sodium (Senna Plus) 1 tab PO BID PRN PRN Reason: Constipation Sodium Chloride (Saline Flush) 10 ml FLUSH ASDIRECTED PRN PRN Reason: Keep Vein Open Trazodone HCl (Trazodone) 100 mg PO BEDTIME [facility] Last Admin: 04/13/20 21:16 Dose: 100 mg Documented by: Discontinued Medications Fentanyl (Sublimaze) 50 mcg IVPUSH ONETIME ONE Stop: 04/12/20 11:18 Last Admin: 04/12/20 11:55 Dose: 50 mcg Documented by: Fentanyl (Sublimaze) Confirm Administered Dose 100 mcg .ROUTE .STK-MED ONE Stop: 04/13/20 08:39 Hydromorphone HCl (Dilaudid) 1 mg IVPUSH ONETIME ONE Stop: 04/12/20 12:47 Last Admin: 04/12/20 12:52 Dose: 1 mg Documented by: Hydromorphone HCl (Dilaudid) 1 mg IVPUSH ONETIME ONE Stop: 04/12/20 14:21 Last Admin: 04/12/20 14:31 Dose: 1 mg Documented by: Sodium Chloride (Normal Saline) 1,000 mls @ 500 mls/hr IV .BOLUS STA Stop: 04/12/20 13:11 Last Admin: 04/12/20 11:56 Dose: 500 mls/hr Documented by: Sodium Chloride (Normal Saline) 89 mls @ 3.5 mls/sec IV ASDIRECTED PREET Stop: 04/12/20 18:00 Last Admin: 04/12/20 12:02 Dose: 3.5 mls/sec Documented by: Sodium Chloride (Normal Saline) 1,000 mls @ 100 mls/hr IV ASDIRECTED [facility] Last Admin: 04/12/20 14:32 Dose: 100 mls/hr Documented by: Sodium Chloride (Normal Saline) 1,000 mls @ 50 mls/hr IV ASDIRECTED PREET Last Admin: 04/12/20 23:12 Dose: 50 mls/hr Documented by: Dextrose/Sodium Chloride (Dextrose 5%-Normal Saline) 1,000 mls @ 50 mls/hr IV ASDIRECTED [facility] Last Admin: 04/12/20 23:12 Dose: 50 mls/hr Documented by: Potassium Chloride 20 meq/Lidocaine HCl 2 ml/ Sodium Chloride 112 mls @ 56 mls/hr IV Q2H PREET Stop: 04/13/20 14:29 Last Admin: 04/13/20 12:52 Dose: 56 mls/hr Documented by: Iopamidol (Isovue-300 (61%)) 150 ml IV ONETIME ONE Stop: 04/12/20 11:32 Last Admin: 04/12/20 12:02 Dose: 150 ml Documented by: Midazolam HCl (Versed 1 Mg/Ml) Confirm Administered Dose 2 mg .ROUTE .STK-MED ONE Stop: 04/13/20 08:39 Pantoprazole Sodium (Protonix Iv) 40 mg IV Q12H [facility] Last Admin: 04/13/20 04:03 Dose: 40 mg Documented by: Pneumococcal Polyvalent Vaccine (Pneumovax 23) 0.5 ml IM .ONCE ONE Stop: 04/13/20 10:01 Propofol (Diprivan 20 Ml) Confirm Administered Dose 200 mg .ROUTE .STK-MED ONE Stop: 04/13/20 08:39 Sodium Chloride (Saline Flush) 10 ml FLUSH ONETIME ONE Stop: 04/12/20 11:32 Last Admin: 04/12/20 11:57 Dose: 10 ml Documented by:
--- NOTE | 2020-04-15 10:25 | OR ---
DATE OF PROCEDURE: 04/13/2020 SURGEON: Shawn Hilliard MD PROCEDURE: Esophagogastroduodenoscopy. FINDINGS: Normal EGD. COMPLICATIONS: None. HAND SPRING FORMER: None. ANESTHETIC: MAC. RISKS: Risks, benefits, alternatives, and limitations including but not limited to infection, bleeding, and perforation were explained to the patient, and they wished to proceed. PREOPERATIVE DIAGNOSIS: Epigastric pain. POSTOPERATIVE DIAGNOSIS: Epigastric pain. RISKS: Risks, benefits, alternatives, and limitations including but not limited to infection, bleeding, ulcer, and perforation were discussed. PROCEDURE IN DETAIL: The patient was placed in left lateral decubitus position. EGD scope was introduced and advanced atraumatically to the second part of the duodenum. No evidence of duodenitis, ulceration, or any other abnormalities. In the stomach itself, there was no evidence of gastritis. No ulceration. The GE junction was normal. No evidence of ulceration or abnormality. The esophagus was normal. No retained food. No abnormalities. The patient tolerated the procedure well. Shawn Hilliard MD /[id number]
== END 2020-04-14 12:17 | disposition home or self-care (01) | DRG 282 ==
LOC: JP.ED 10:19 → JP.ICU 14:21 → JP.MS 04-13 17:30
PROVIDERS: ADMIT Internal Medicine; ATTEND Internal Medicine
PROC: 0DJ08ZZ Inspection of Upper Intestinal Tract, Via Natural or Artificial Opening Endoscopic (ICD-10-PCS; principal; 2020-04-13)
DX: K85.90 Acute pancreatitis without necrosis or infection, unspecified (principal); E11.65 Type 2 diabetes mellitus with hyperglycemia; Z79.4 Long term (current) use of insulin; E66.9 Obesity, unspecified; F17.210 Nicotine dependence, cigarettes, uncomplicated; I25.10 Atherosclerotic heart disease of native coronary artery without angina pectoris; G47.33 Obstructive sleep apnea (adult) (pediatric); Z79.82 Long term (current) use of aspirin; Z79.899 Other long term (current) drug therapy; Z79.890 Hormone replacement therapy; Z88.2 Allergy status to sulfonamides; H54.7 Unspecified visual loss; E78.00 Pure hypercholesterolemia, unspecified; K21.9 Gastro-esophageal reflux disease without esophagitis; E11.42 Type 2 diabetes mellitus with diabetic polyneuropathy; E03.9 Hypothyroidism, unspecified; Z90.89 Acquired absence of other organs; M19.90 Unspecified osteoarthritis, unspecified site; G89.29 Other chronic pain; M54.9 Dorsalgia, unspecified; Z90.49 Acquired absence of other specified parts of digestive tract; Z20.822 Contact with and (suspected) exposure to COVID-19; Z68.41 Body mass index [BMI] 40.0-44.9, adult
CPT/HCPCS: 0241U; 36415; 71046; 71046-26; 74177; 74177-26; 80048; 80053; 81001; 82962; 83036; 83605; 83690; 84484; 85025; 85027; 93005; 96374; 96375; 99221; 99232; 99238; 99284; 99285-25; A9270-GY; C9113; J1170; J1815; J1815-GY; J2250; J2704; J3010; J3480; J7030; Q9967

== ENCOUNTER 2021-02-22 13:33 | Emergency (ER) | payer BC, MEDICARE ==
[2021-02-22] MEDS ORDERED: Ondansetron 4 MG/2 ML SDV IVPUSH ONE (15:29)
[2021-02-22] MEDS ORDERED: fentaNYL 100 MCG/2 ML SDV IVPUSH ONE (15:29)
[2021-02-22] MEDS ORDERED: Sodium Chloride 0.9% 10 ML Syringe FLUSH PRN (15:29)
[2021-02-22] MEDS ORDERED: Sodium Chloride 0.9% 1,000 ML IV SCH (15:30)
--- NOTE | 2021-02-22 15:33 | EDM.PDOC ---
ED HPI GENERAL MEDICAL PROBLEM - General Chief Complaint: Gastrointestinal Problem Stated Complaint: UPSET STOMACH Time Seen by Provider: 02/22/21 15:22 Source of Information: Reports: Patient, RN Notes Reviewed History Limitations: Reports: No Limitations - History of Present Illness INITIAL COMMENTS - FREE TEXT/NARRATIVE: 61-year-old gentleman presents emergency department day complaint of abdominal pain, he states his abdominal pain and nausea for about 2 weeks it is progressively gotten worse over the last couple of days he has had no fevers recently had COVID about 3 weeks ago denies any shortness of breath or chest pain Epigastric Pain Score (Numeric/FACES): 6 - Related Data Allergies Allergy/AdvReac Type Severity Reaction Status Date / Time Sulfa (Sulfonamide Allergy Intermediate Swollen Verified 04/12/20 10:32 Antibiotics) Eyes Home Meds: Home Meds Albuterol [Ventolin HFA] 2 puff INH BID PRN 04/21/17 [History] Insulin Isophane NPH, Human [NovoLIN N] 15 unit SUBCUT TID 04/21/17 [History] Lisinopril 40 mg PO DAILY 04/21/17 [History] Metoprolol Succinate 200 mg PO DAILY 04/21/17 [History] amLODIPine Besylate [Amlodipine Besylate] 10 mg PO DAILY 04/21/17 [History] atorvaSTATin Calcium [Atorvastatin Calcium] 40 mg PO BEDTIME 04/21/17 [History] Aspirin [Halfprin] 81 mg PO DAILY 01/27/18 [History] Chromium Amino Acid Chelate [Chromium] 1,000 mcg PO DAILY 01/27/18 [History] Insulin Glarg,Human.Rec.Analog [Lantus Solostar] 10 unit SUBCUT BEDTIME 09/30/19 [History] Levothyroxine 112 mcg PO ACBREAKFAST 04/12/20 [History] traZODone 100 mg PO BEDTIME 04/12/20 [History] Past Medical History HEENT History: Reports: Impaired Vision, Sinusitis Cardiovascular History: Reports: CAD, High Cholesterol, Hypertension, DC Respiratory History: Reports: Asthma, Sleep Apnea, Other (See Below) Other Respiratory History: pneumonia Gastrointestinal History: Reports: Cholelithiasis, Colon Polyp, GERD, Pancreatitis Musculoskeletal History: Reports: Arthritis, Back Pain, Chronic, Fracture, Other (See Below) Other Musculoskeletal History: Nerve damage to back Neurological History: Reports: CVA, Neuropathy, Diabetic Psychiatric History: Reports: Depression Endocrine/Metabolic History: Reports: Diabetes, Type II, Hypothyroidism, Obesity/BMI 30+ - Infectious Disease History Infectious Disease History: Reports: Chicken Pox - Past Surgical History Head Surgeries/Procedures: Reports: None HEENT Surgical History: Reports: Tonsillectomy Cardiovascular Surgical History: Reports: None Respiratory Surgical History: Reports: None GI Surgical History: Reports: Appendectomy, Cholecystectomy, Colonoscopy, Hernia Repair/Other Male Surgical History: Reports: Circumcision, Other (See Below) Other Male Surgeries/Procedures: lanced cyst on left testicle 2017 Endocrine Surgical History: Reports: None Neurological Surgical History: Reports: None Musculoskeletal Surgical History: Reports: Other (See Below) Other Musculoskeletal Surgeries/Procedures:: Left knee ACL removed Dermatological Surgical History: Reports: None Social & Family History - Family History Family Medical History: No Pertinent Family History Cardiac: Reports: Hypertension : Reports: Renal Disease/Insufficiency Psychiatric: Reports: Depression Endocrine/Metabolic: Reports: Diabetes, type II Oncologic: Reports: Lung, Other (See Below) Other Oncologic Family History: Throat cancer - Tobacco Use Tobacco Use Status *Q: Current Every Day Tobacco User Years of Tobacco use: 30 Packs/Tins Daily: 0.5 - Caffeine Use Caffeine Use: Reports: Coffee - Recreational Drug Use Recreational Drug Use: No ED ROS GENERAL - Review of Systems Review Of Systems: See Below Constitutional: Reports: No Symptoms HEENT: Reports: No Symptoms Respiratory: Reports: No Symptoms Cardiovascular: Reports: No Symptoms GI/Abdominal: Reports: Abdominal Pain, Flatus, Nausea, Vomiting ED EXAM, GI/ABD - Physical Exam Exam: See Below Exam Limited By: No Limitations General Appearance: Alert, WD/WN, No Apparent Distress Respiratory/Chest: No Respiratory Distress, Lungs Clear, Normal Breath Sounds, No Accessory Muscle Use, Chest Non-Tender Cardiovascular: Regular Rate, Rhythm, No Murmur GI/Abdominal Exam: Normal Bowel Sounds, Soft, Tender (Epigastric region), Other (Exam limited by body habitus) Course - Vital Signs Last Recorded V/S: Last Vital Signs Temp 96.8 F L 02/22/21 15:00 Pulse 77 02/22/21 18:07 Resp 18 02/22/21 15:00 BP 125/83 02/22/21 18:07 Pulse Ox 96 02/22/21 18:07 - Orders/Labs/Meds Orders: Active Orders 24 hr Category Date Time Status Peripheral IV Care [RC] . DIRECTED Care 02/22/21 15:30 Active Iopamidol [Isovue-300 (61%)] Med 02/22/21 16:14 Active 150 ml IV . DIRECTED PRN Sodium Chloride 0.9% [Normal Saline] 1,000 ml Med 02/22/21 15:30 Active IV ASDIRECTED Sodium Chloride 0.9% [Normal Saline] 100 ml Med 02/22/21 16:15 Active IV ASDIRECTED Sodium Chloride 0.9% [Saline Flush] Med 02/22/21 15:29 Active 10 ml FLUSH ASDIRECTED PRN Peripheral IV Insertion Adult [OM.PC] Urgent Oth 02/22/21 15:29 Ordered Medication Orders Sodium Chloride (Normal Saline) 1,000 mls @ 500 mls/hr IV ASDIRECTED PREET Last Admin: 02/22/21 15:46 Dose: 500 mls/hr Documented by: MARIPOSA Sodium Chloride (Normal Saline) 100 mls @ 3 mls/sec IV ASDIRECTED PREET Last Admin: 02/22/21 16:50 Dose: 3 mls/sec Documented by: ALEA Iopamidol (Iopamidol 612 Mg/Ml 150 Ml Bottle) 150 ml IV . DIRECTED PRN PRN Reason: RADIOLOGY EXAM Stop: 02/23/21 16:15 Last Admin: 02/22/21 16:50 Dose: 150 ml Documented by: ALEA Sodium Chloride (Sodium Chloride 0.9% 10 Ml Syringe) 10 ml FLUSH ASDIRECTED PRN PRN Reason: Keep Vein Open Last Admin: 02/22/21 15:45 Dose: 10 ml Documented by: MARIPOSA Labs: Laboratory Tests 02/22/21 02/22/21 02/22/21 Range/Units 15:45 15:45 15:45 WBC 11.1 H (3.2-11.0) K/uL RBC 4.97 (4.14-5.76) M/uL Hgb 15.7 (12.9-16.9) Hct 46.3 (38.4-49.7) % MCV 93.2 (81.4-99.0) fL MCH 31.6 (31.6-35.5) pg MCHC 33.9 (31.6-35.5) g/dL Plt Count 263 (130-375) K/uL Immature Gran % (Auto) 0.5 (0.0-0.7) % Neut % (Auto) 65.6 (36-66) % Lymph % (Auto) 22.8 L (24-44) % [place] % (Auto) 9.2 H (2-6) % Eos % (Auto) 1.2 L (2-4) % Baso % (Auto) 0.7 (0-1) % Neut # (Auto) 7.29 (1.0-7.6) K/uL Lymph # (Auto) 2.54 (0.8-3.3) K/uL [place] # (Auto) 1.02 H (0.20-0.90) K/uL Eos # (Auto) 0.13 (0.00-0.40) K/uL Baso # (Auto) 0.08 (0.00-0.10) K/uL Immature Gran # (Auto) 0.06 (0.00-0.23) K/uL Sodium 139 L (140-148) mmol/L Potassium 3.9 (3.6-5.2) mmol/L Chloride 101 (100-108) mmol/L Carbon Dioxide 31 (21-32) mmol/L Anion Gap 10.9 (5.0-14.0) mmol/L BUN 12 (7-18) mg/dL Creatinine 1.1 (0.8-1.3) mg/dL Est Cr Clr Drug Dosing 76.06 mL/min Estimated GFR (MDRD) > 60 (>60) Glucose 194 H (74-106) mg/dL Lactic Acid 1.1 (0.4-2.0) mmol/L Calcium 8.9 (8.5-10.1) mg/dL Total Bilirubin 0.4 (0.2-1.0) mg/dL AST 17 (15-37) U/L ALT 25 (12-78) U/L Alkaline Phosphatase 110 (46-116) U/L Troponin I High Sens 5.2 (<=60.3) pg/mL NT-Pro-B Natriuret Pep (5-125) pg/mL Total Protein 7.0 (6.4-8.2) g/dL Albumin 3.8 (3.4-5.0) g/dL Globulin 3.2 (2.3-3.5) g/dL Albumin/Globulin Ratio 1.2 (1.2-2.2) Lipase 152 (73-393) U/L 02/22/21 Range/Units 15:45 WBC (3.2-11.0) K/uL RBC (4.14-5.76) M/uL Hgb (12.9-16.9) Hct (38.4-49.7) % MCV (81.4-99.0) fL MCH (31.6-35.5) pg MCHC (31.6-35.5) g/dL Plt Count (130-375) K/uL Immature Gran % (Auto) (0.0-0.7) % Neut % (Auto) (36-66) % Lymph % (Auto) (24-44) % [place] % (Auto) (2-6) % Eos % (Auto) (2-4) % Baso % (Auto) (0-1) % Neut # (Auto) (1.0-7.6) K/uL Lymph # (Auto) (0.8-3.3) K/uL [place] # (Auto) (0.20-0.90) K/uL Eos # (Auto) (0.00-0.40) K/uL Baso # (Auto) (0.00-0.10) K/uL Immature Gran # (Auto) (0.00-0.23) K/uL Sodium (140-148) mmol/L Potassium (3.6-5.2) mmol/L Chloride (100-108) mmol/L Carbon Dioxide (21-32) mmol/L Anion Gap (5.0-14.0) mmol/L BUN (7-18) mg/dL Creatinine (0.8-1.3) mg/dL Est Cr Clr Drug Dosing mL/min Estimated GFR (MDRD) (>60) Glucose (74-106) mg/dL Lactic Acid (0.4-2.0) mmol/L Calcium (8.5-10.1) mg/dL Total Bilirubin (0.2-1.0) mg/dL AST (15-37) U/L ALT (12-78) U/L Alkaline Phosphatase (46-116) U/L Troponin I High Sens (<=60.3) pg/mL NT-Pro-B Natriuret Pep 57 (5-125) pg/mL Total Protein (6.4-8.2) g/dL Albumin (3.4-5.0) g/dL Globulin (2.3-3.5) g/dL Albumin/Globulin Ratio (1.2-2.2) Lipase (73-393) U/L Meds: Medications Generic Name Dose Route Start Last Admin Trade Name Keisha PRN Reason Stop Dose Admin Sodium Chloride 1,000 mls @ 500 mls/hr 02/22/21 15:30 02/22/21 15:46 Normal Saline IV 500 mls/hr ASDIRECTED PREET Administration Sodium Chloride 100 mls @ 3 mls/sec 02/22/21 16:15 02/22/21 16:50 Normal Saline IV 3 mls/sec ASDIRECTED PREET Administration Iopamidol 150 ml 02/22/21 16:14 02/22/21 16:50 Iopamidol 612 Mg/Ml 150 Ml Bottle IV 02/23/21 16:15 150 ml . DIRECTED PRN Administration RADIOLOGY EXAM Sodium Chloride 10 ml 02/22/21 15:29 02/22/21 15:45 Sodium Chloride 0.9% 10 Ml Syringe FLUSH 10 ml ASDIRECTED PRN Administration Keep Vein Open Discontinued Medications Generic Name Dose Route Start Last Admin Trade Name Keisha PRN Reason Stop Dose Admin Fentanyl 50 mcg 02/22/21 15:29 02/22/21 15:46 Fentanyl 100 Mcg/2 Ml Sdv IVPUSH 02/22/21 15:30 50 mcg ONETIME ONE Administration Ondansetron HCl 4 mg 02/22/21 15:29 02/22/21 15:47 Ondansetron 4 Mg/2 Ml Sdv IVPUSH 02/22/21 15:30 4 mg ONETIME ONE Administration Sodium Chloride 10 ml 02/22/21 16:14 02/22/21 16:50 Sodium Chloride 0.9% 10 Ml Sdv FLUSH 02/22/21 16:15 10 ml ONETIME ONE Administration Departure - Departure Time of Disposition: 18:38 Disposition: Home, Self-Care 01 Condition: Fair Clinical Impression: Abdominal pain - Discharge Information Instructions: Abdominal Pain, Adult, [id number] Referrals: Em Taylor DO [Primary Care Provider] - Forms: ED Department Discharge Additional Instructions: Use Zofran as needed for nausea and vomiting symptoms, please followup with your primary care provider in 3-5 days if not better, please call return to the emergency department with worsening of symptoms. Sepsis Event Note (ED) - Evaluation Sepsis Screening Result: No Definite Risk - Focused Exam Vital Signs: Vital Signs Temp Pulse Resp BP Pulse Ox 02/22/21 18:07 77 125/83 96 02/22/21 17:20 74 134/84 95 02/22/21 15:00 96.8 F L 86 18 161/102 H 96 - My Orders Last 24 Hours: My Active Orders 02/22/21 15:29 Sodium Chloride 0.9% [Saline Flush] 10 ml FLUSH ASDIRECTED PRN Peripheral IV Insertion Adult [OM.PC] Urgent 02/22/21 15:30 Peripheral IV Care [RC] . DIRECTED Sodium Chloride 0.9% [Normal Saline] 1,000 ml IV ASDIRECTED 02/22/21 16:14 Iopamidol [Isovue-300 (61%)] 150 ml IV . DIRECTED PRN 02/22/21 16:15 Sodium Chloride 0.9% [Normal Saline] 100 ml IV ASDIRECTED - Assessment/Plan Last 24 Hours: My Active Orders 02/22/21 15:29 Sodium Chloride 0.9% [Saline Flush] 10 ml FLUSH ASDIRECTED PRN Peripheral IV Insertion Adult [OM.PC] Urgent 02/22/21 15:30 Peripheral IV Care [RC] . DIRECTED Sodium Chloride 0.9% [Normal Saline] 1,000 ml IV ASDIRECTED 02/22/21 16:14 Iopamidol [Isovue-300 (61%)] 150 ml IV . DIRECTED PRN 02/22/21 16:15 Sodium Chloride 0.9% [Normal Saline] 100 ml IV ASDIRECTED Plan: Assessment Acuity = acute Site and laterality = abdominal pain Etiology = unknown Manifestations = nausea and vomiting Location of injury = Home Lab values = CBC, CMP unremarkable lactic acid within normal limits CT scan shows no acute process Plan He was given 1 L of fluids and some Zofran while in the emergency department he did feel better however the nausea and vomiting is consistently returning in the morning he does admit to eating high fat content foods at night. Plan is to have him follow-up with his primary care in the next 3 to 5 days for reevaluation prescription for Zofran 4 mg ODT 1 tab p.o. 3 times daily. Total #10 provided This note was dictated using [employer] voice recognition software please call with any questions on syntax or grammar.
[2021-02-22] MEDS ORDERED: Iopamidol 612 MG/ML 150 ML Bottle IV PRN (16:14)
[2021-02-22] MEDS ORDERED: Sodium Chloride 0.9% 10 ML SDV FLUSH ONE (16:14)
[2021-02-22] MEDS ORDERED: Sodium Chloride 0.9% 100 ML IV SCH (16:15)
--- NOTE | 2021-02-22 17:48 | CRLCT ---
For Patients: As a result of the Century Cures Act, medical imaging exams and procedure reports are released immediately into your electronic medical record. You may view this report before your referring provider. If you have questions, please contact your health care provider. INDICATION: Epigastric pain. TECHNIQUE: CT abdomen and pelvis with intravenous contrast, 150 mL of Isovue-300. Coronal and sagittal formats. COMPARISON: CT 04/12/2020. FINDINGS: The imaged lower chest appears unremarkable. Normal liver contour. No suspicious hepatic lesion. The portal veins are patent. No biliary dilatation. Gallbladder surgically absent. The pancreas enhances homogeneously and is without focal lesion, ductal dilatation, or peripancreatic fat stranding. The spleen and right adrenal are unremarkable. Unchanged left adrenal 2.2 cm nodule (series 2, image 66). Symmetric renal enhancement. Similar tiny low-attenuation lesions bilaterally. No hydronephrosis bilaterally. Unremarkable brought bladder and prostate. Tiny duodenal diverticulum. The bowel appears normal in caliber and enhancement diffusely. Mild colonic diverticulosis. No free air, free fluid, focal collection, or lymphadenopathy. Normal caliber abdominal aorta. The major branch vessels are patent. Next field no suspicious osseous lesion. IMPRESSION: No acute findings or CT correlate for epigastric pain definitively identified. Dictated by Gokul Gaston MD @ 02/22/2021 5:46:50 PM Please note that all CT scans at this facility use dose modulation, iterative reconstruction, and/or weight-based dosing when appropriate to reduce radiation dose to as low as reasonably achievable. Dictated by: Gokul Gaston MD @ 02/22/2021 17:46:54 (Electronically Signed)
[2021-02-22 18:07] VITALS: BP 125/83; PULSE 77
== END 2021-02-22 18:55 | disposition home or self-care (01) ==
LOC: JP.ED 13:33
DX: R10.13 Epigastric pain (principal); I25.10 Atherosclerotic heart disease of native coronary artery without angina pectoris; E78.00 Pure hypercholesterolemia, unspecified; I25.2 Old myocardial infarction; I10 Essential (primary) hypertension; E11.9 Type 2 diabetes mellitus without complications; E03.9 Hypothyroidism, unspecified; E66.9 Obesity, unspecified; Z68.30 Body mass index [BMI] 30.0-30.9, adult; Z88.2 Allergy status to sulfonamides; Z79.4 Long term (current) use of insulin; Z79.899 Other long term (current) drug therapy; Z72.0 Tobacco use
CPT/HCPCS: 36415; 74177; 80053; 83605; 83690; 83880; 84484; 85025; 96374; 96375; 99284; J2405; J3010; J7030; Q9967

== ENCOUNTER 2021-10-21 19:46 | Emergency (ER) | payer BC, MEDICARE ==
[2021-10-21 20:22] VITALS: BP 146/88; PULSE 79
[2021-10-21] MEDS ORDERED: Bacitracin Oint 1 GM U/D Packet TOP ONE (21:16)
== END 2021-10-21 21:38 | disposition home or self-care (01) ==
LOC: JP.ED 19:46
DX: T24.221A Burn of second degree of right knee, initial encounter (principal); T24.222A Burn of second degree of left knee, initial encounter; I25.10 Atherosclerotic heart disease of native coronary artery without angina pectoris; I10 Essential (primary) hypertension; I25.2 Old myocardial infarction; Z88.2 Allergy status to sulfonamides; Z79.899 Other long term (current) drug therapy; Z79.4 Long term (current) use of insulin; Z90.49 Acquired absence of other specified parts of digestive tract
CPT/HCPCS: 16020; 99283

== ENCOUNTER 2022-01-25 09:00 | Emergency (ER) | payer BC, MEDICARE ==
[2022-01-25 09:34] VITALS: BP 132/81; PULSE 77
[2022-01-25 10:17] LABS: CORONAVIRUS COVID-19 NAA NEGATIVE (NEGATIVE)
== END 2022-01-25 10:43 | disposition home or self-care (01) ==
LOC: JP.ED 09:00
DX: R42 Dizziness and giddiness (principal); B34.9 Viral infection, unspecified; I25.10 Atherosclerotic heart disease of native coronary artery without angina pectoris; E78.00 Pure hypercholesterolemia, unspecified; I10 Essential (primary) hypertension; I25.2 Old myocardial infarction; E11.9 Type 2 diabetes mellitus without complications; F17.210 Nicotine dependence, cigarettes, uncomplicated; E66.9 Obesity, unspecified; Z68.36 Body mass index [BMI] 36.0-36.9, adult; Z79.899 Other long term (current) drug therapy; Z88.2 Allergy status to sulfonamides; Z79.4 Long term (current) use of insulin; Z79.82 Long term (current) use of aspirin; Z79.84 Long term (current) use of oral hypoglycemic drugs; Z90.49 Acquired absence of other specified parts of digestive tract; Z20.822 Contact with and (suspected) exposure to COVID-19
CPT/HCPCS: 0241U; 99283

== ENCOUNTER 2022-02-25 06:12 | Emergency (ER) | payer BC, MEDICARE ==
[2022-02-25 07:10] VITALS: PULSE 66
[2022-02-25 07:14] LABS: ESTIMATED GFR 86 mL/min (>60); TROPONIN I HIGH SENSITIVITY 5.5 pg/mL (<=60.3)
[2022-02-25 07:22] LABS: CORONAVIRUS COVID-19 NAA NEGATIVE (NEGATIVE)
[2022-02-25 07:23] VITALS: BP 174/106
== END 2022-02-25 08:36 | disposition home or self-care (01) ==
LOC: JP.ED 06:12
DX: R55 Syncope and collapse (principal); E11.65 Type 2 diabetes mellitus with hyperglycemia; I25.10 Atherosclerotic heart disease of native coronary artery without angina pectoris; E78.00 Pure hypercholesterolemia, unspecified; I10 Essential (primary) hypertension; I25.2 Old myocardial infarction; E11.40 Type 2 diabetes mellitus with diabetic neuropathy, unspecified; E11.9 Type 2 diabetes mellitus without complications; E03.9 Hypothyroidism, unspecified; E66.9 Obesity, unspecified; Z68.37 Body mass index [BMI] 37.0-37.9, adult; Z88.2 Allergy status to sulfonamides; Z86.73 Personal history of transient ischemic attack (TIA), and cerebral infarction without residual deficits; Z79.82 Long term (current) use of aspirin; Z79.4 Long term (current) use of insulin; Z79.899 Other long term (current) drug therapy; Z20.822 Contact with and (suspected) exposure to COVID-19
CPT/HCPCS: 0241U; 36415; 36600; 70450; 80053; 82009; 82803; 82947; 84439; 84443; 84484; 85025; 93005; 99284; 93010

== ENCOUNTER 2023-01-20 18:00 | Emergency (ER) | payer BC, MEDICARE ==
[2023-01-20] MEDS ORDERED: Aspirin 81 MG Tab.Chew PO ONE (18:21)
[2023-01-20 18:28] LABS: BASOPHILS ABSOLUTE AUTO 0.11 K/uL (0.00-0.10); BASOPHILS PERCENT AUTO 0.8 % (0.1-1.3); EOSINOPHILS ABSOLUTE AUTO 0.15 K/uL (0.00-0.40); EOSINOPHILS PERCENT AUTO 1.1 % (0.0-5.4); HEMATOCRIT 46.6 % (38.4-49.7); IMMATURE GRAN PERCENT AUTO 1.5 % (0.0-0.7); LYMPHOCYTES ABSOLUTE AUTO 2.45 K/uL (0.8-3.3); LYMPHOCYTES PERCENT AUTO 17.8 % (11.4-47.7); MEAN CORPUSCULAR HEMOGLOBIN 32.5 pg (31.6-35.5); MEAN CORPUSCULAR HGB CONC 34.3 g/dL (31.6-35.5); MEAN CORPUSCULAR VOLUME 94.5 fL (81.4-99.0); MONOCYTES ABSOLUTE AUTO 1.39 K/uL (0.20-0.90); MONOCYTES PERCENT AUTO 10.1 % (3.3-12.6); NEUTROPHILS ABSOLUTE AUTO 9.45 K/uL (1.0-7.6); NEUTROPHILS PERCENT AUTO 68.7 % (40.0-78.1); PLATELET COUNT,PLT 226 K/uL (130-375); RED BLOOD CELL COUNT 4.93 M/uL (4.14-5.76); WHITE BLOOD CELL COUNT,WBC 13.8 K/uL (3.2-11.0)
[2023-01-20 18:41] LABS: INR 0.9; PROTHROMBIN TIME 9.5 sec (9.2-10.6); PTT,PARTIAL THROMBOPLSTIN TIME 25.7 sec (21.8-27.3)
[2023-01-20 18:42] VITALS: BP 145/107; PULSE 69
[2023-01-20 18:42] LABS: ALANINE AMINOTRANSFERASE,ALT 8 U/L (12-78); ALBUMIN 3.5 g/dL (3.4-5.0); ALKALINE PHOSPHATASE 177 U/L (46-116); ASPARTATE AMNIOTRANSFERASE,AST 13 U/L (15-37); BILIRUBIN TOTAL 0.4 mg/dL (0.2-1.0); BLOOD UREA NITROGEN,BUN 16 mg/dL (7-18); CALCIUM 8.3 mg/dL (8.5-10.1); CARBON DIOXIDE,CO2 30 mmol/L (21-32); CHLORIDE,CL 97 mmol/L (100-108); CREATININE 1.3 mg/dL (0.8-1.3); ESTIMATED GFR 63 mL/min (>60); GLUCOSE RANDOM 326 mg/dL (74-106); POTASSIUM,K 4.6 mmol/L (3.6-5.2); PROTEIN TOTAL,TP 7.1 g/dL (6.4-8.2); SODIUM,NA 131 mmol/L (140-148)
[2023-01-20 18:43] LABS: ANION GAP 8.6 mmol/L (5.0-14.0)
[2023-01-20] MEDS ORDERED: Sodium Chloride 0.9% 1,000 ML IV ONE (18:45)
== END 2023-01-20 19:32 | disposition home or self-care (01) ==
LOC: JP.ED 18:00
DX: U07.1 COVID-19 (principal); F17.290 Nicotine dependence, other tobacco product, uncomplicated; G47.33 Obstructive sleep apnea (adult) (pediatric); E11.65 Type 2 diabetes mellitus with hyperglycemia; E03.9 Hypothyroidism, unspecified; I10 Essential (primary) hypertension; I25.10 Atherosclerotic heart disease of native coronary artery without angina pectoris; E66.9 Obesity, unspecified; Z68.41 Body mass index [BMI] 40.0-44.9, adult; M19.90 Unspecified osteoarthritis, unspecified site; Z79.84 Long term (current) use of oral hypoglycemic drugs; Z79.4 Long term (current) use of insulin; Z79.82 Long term (current) use of aspirin; Z79.899 Other long term (current) drug therapy
CPT/HCPCS: 36415; 71045; 80053; 82009; 84145; 84484; 85025; 85610; 85730; 93005; 96360; 99285; A9270; J7030

== ENCOUNTER 2023-02-10 09:24 | Emergency (ER) | payer BC, MEDICARE ==
[~2023-02-10 09:24] MED LIST: Pantoprazole 40 MG Tab.CR PO SCH
[2023-02-10 10:11] LABS: BASOPHILS ABSOLUTE AUTO 0.07 K/uL (0.00-0.10); BASOPHILS PERCENT AUTO 0.7 % (0.1-1.3); EOSINOPHILS ABSOLUTE AUTO 0.08 K/uL (0.00-0.40); EOSINOPHILS PERCENT AUTO 0.8 % (0.0-5.4); HEMOGLOBIN 15.9 g/dL (12.9-16.9); IMMATURE GRAN ABSOLUTE AUTO 0.14 K/uL (0.00-0.23); IMMATURE GRAN PERCENT AUTO 1.3 % (0.0-0.7); LYMPHOCYTES ABSOLUTE AUTO 2.16 K/uL (0.8-3.3); LYMPHOCYTES PERCENT AUTO 20.4 % (11.4-47.7); MEAN CORPUSCULAR HEMOGLOBIN 31.7 pg (31.6-35.5); MEAN CORPUSCULAR HGB CONC 34.6 g/dL (31.6-35.5); MEAN CORPUSCULAR VOLUME 91.6 fL (81.4-99.0); MONOCYTES ABSOLUTE AUTO 0.84 K/uL (0.20-0.90); MONOCYTES PERCENT AUTO 7.9 % (3.3-12.6); NEUTROPHILS ABSOLUTE AUTO 7.28 K/uL (1.0-7.6); NEUTROPHILS PERCENT AUTO 68.9 % (40.0-78.1); PLATELET COUNT,PLT 258 K/uL (130-375); RED BLOOD CELL COUNT 5.02 M/uL (4.14-5.76); WHITE BLOOD CELL COUNT,WBC 10.6 K/uL (3.2-11.0)
[2023-02-10] MEDS ORDERED: Pantoprazole 40 MG Tab.CR PO ONE (10:11)
[2023-02-10 10:40] LABS: A/G RATIO 0.9 (1.2-2.2); ALANINE AMINOTRANSFERASE,ALT 17 U/L (12-78); ALBUMIN 3.5 g/dL (3.4-5.0); ALKALINE PHOSPHATASE 161 U/L (46-116); ASPARTATE AMNIOTRANSFERASE,AST 14 U/L (15-37); BILIRUBIN TOTAL 0.3 mg/dL (0.2-1.0); BLOOD UREA NITROGEN,BUN 16 mg/dL (7-18); CALCIUM 8.3 mg/dL (8.5-10.1); CARBON DIOXIDE,CO2 31 mmol/L (21-32); CHLORIDE,CL 96 mmol/L (100-108); CREATININE 1.2 mg/dL (0.8-1.3); EST CRCL DRUG DOSING (CG) 67.98 mL/min; ESTIMATED GFR 68 mL/min (>60); GLUCOSE RANDOM 313 mg/dL (74-106); POTASSIUM,K 4.2 mmol/L (3.6-5.2); PROTEIN TOTAL,TP 7.4 g/dL (6.4-8.2); SODIUM,NA 131 mmol/L (140-148)
[2023-02-10 10:44] LABS: ANION GAP 8.2 mmol/L (5.0-14.0)
[2023-02-10] MEDS ORDERED: HYDROmorphone 0.5 MG/0.5 ML Syringe IVPUSH ONE (10:46)
[2023-02-10] MEDS ORDERED: Sodium Chloride 0.9% 1,000 ML IV SCH (11:00)
[2023-02-10] MEDS: Sodium Chloride 0.9% 10 ML Syringe FLUSH ONE ×3 (11:40→13:34)
[2023-02-10 12:05] LABS: APPEARANCE,URINE CLEAR (CLEAR); BILIRUBIN,URINE NEGATIVE (NEGATIVE); COLOR,URINE YELLOW (YELLOW); GLUCOSE,URINE 250 mg/dL (NEGATIVE); KETONES,URINE NEGATIVE (NEGATIVE); LEUKOCYTE ESTERASE,URINE NEGATIVE (NEGATIVE); NITRITE,URINE NEGATIVE (NEGATIVE); OCCULT BLOOD,URINE NEGATIVE (NEGATIVE); PROTEIN,URINE NEGATIVE (NEGATIVE)
[2023-02-10] MEDS: Iopamidol 612 MG/ML 100 ML Bottle IV SCH ×2 (12:07→13:34)
[2023-02-10] MEDS: Sodium Chloride 0.9% 50 ML IV SCH ×2 (12:08→13:34)
[2023-02-10 12:22] LABS: RBC,URINE 0-5 (0-5); WBC,URINE 0-5 (0-5)
[2023-02-10 12:23] LABS: AMORPHOUS SEDIMENT,URINE NOT SEEN; BACTERIA,URINE FEW; EPITHELIAL CELLS,URINE NOT SEEN; MUCUS,URINE NOT SEEN
[2023-02-10] MEDS ORDERED: Alum Hydrox/Mag Hydrox/Simeth 15 ML, Lidocaine 2% 15 ML PO ONE ×2 (13:10)
[2023-02-10 13:19] VITALS: BP 150/95; PULSE 70
== END 2023-02-10 13:58 | disposition home or self-care (01) ==
LOC: JP.ED 09:24
DX: R19.8 Other specified symptoms and signs involving the digestive system and abdomen (principal); I10 Essential (primary) hypertension; E78.00 Pure hypercholesterolemia, unspecified; I25.2 Old myocardial infarction; E11.9 Type 2 diabetes mellitus without complications; E03.9 Hypothyroidism, unspecified; E66.9 Obesity, unspecified; Z68.38 Body mass index [BMI] 38.0-38.9, adult; Z90.49 Acquired absence of other specified parts of digestive tract; Z88.2 Allergy status to sulfonamides; Z79.82 Long term (current) use of aspirin; Z79.4 Long term (current) use of insulin; Z79.84 Long term (current) use of oral hypoglycemic drugs; Z79.899 Other long term (current) drug therapy; Z86.16 Personal history of COVID-19; F17.210 Nicotine dependence, cigarettes, uncomplicated
CPT/HCPCS: 36415; 74177; 80053; 81001; 82150; 83690; 84443; 85025; 86140; 96361; 96374; 99284; A9270; J1170; J3490; J7030; Q9967

== ENCOUNTER 2023-02-13 21:19 | Emergency (ER) | payer BC, MEDICARE ==
[2023-02-13 22:00] VITALS: BP 164/102; PULSE 74
[2023-02-13] MEDS ORDERED: Sodium Chloride 0.9% 1,000 ML IV ONE (23:07)
[2023-02-13] MEDS ORDERED: Polyethylene Glycol 3350 Powder 17 GM Packet PO ONE (23:07)
[2023-02-13] MEDS ORDERED: Ketorolac 30 MG/ML SDV IVPUSH ONE (23:08)
[2023-02-13 23:57] LABS: BASOPHILS PERCENT AUTO 1.1 % (0.1-1.3); EOSINOPHILS ABSOLUTE AUTO 0.09 K/uL (0.00-0.40); HEMATOCRIT 48.8 % (38.4-49.7); IMMATURE GRAN ABSOLUTE AUTO 0.19 K/uL (0.00-0.23); LYMPHOCYTES ABSOLUTE AUTO 2.75 K/uL (0.8-3.3); LYMPHOCYTES PERCENT AUTO 29.3 % (11.4-47.7); MEAN CORPUSCULAR HEMOGLOBIN 31.8 pg (31.6-35.5); MEAN CORPUSCULAR HGB CONC 34.8 g/dL (31.6-35.5); MEAN CORPUSCULAR VOLUME 91.2 fL (81.4-99.0); MONOCYTES ABSOLUTE AUTO 0.95 K/uL (0.20-0.90); MONOCYTES PERCENT AUTO 10.1 % (3.3-12.6); NEUTROPHILS ABSOLUTE AUTO 5.31 K/uL (1.0-7.6); NEUTROPHILS PERCENT AUTO 56.5 % (40.0-78.1); PLATELET COUNT,PLT 254 K/uL (130-375); RED BLOOD CELL COUNT 5.35 M/uL (4.14-5.76); WHITE BLOOD CELL COUNT,WBC 9.4 K/uL (3.2-11.0)
[2023-02-14 00:45] LABS: ALANINE AMINOTRANSFERASE,ALT 21 U/L (12-78); ALBUMIN 3.9 g/dL (3.4-5.0); ALKALINE PHOSPHATASE 165 U/L (46-116); ASPARTATE AMNIOTRANSFERASE,AST 20 U/L (15-37); BILIRUBIN TOTAL 0.4 mg/dL (0.2-1.0); BLOOD UREA NITROGEN,BUN 16 mg/dL (7-18); CALCIUM 8.4 mg/dL (8.5-10.1); CARBON DIOXIDE,CO2 29 mmol/L (21-32); CHLORIDE,CL 96 mmol/L (100-108); CREATININE 1.3 mg/dL (0.8-1.3); EST CRCL DRUG DOSING (CG) 62.75 mL/min; ESTIMATED GFR 62 mL/min (>60); GLUCOSE RANDOM 282 mg/dL (74-106); POTASSIUM,K 3.9 mmol/L (3.6-5.2); SODIUM,NA 134 mmol/L (140-148)
[2023-02-14 00:48] LABS: ANION GAP 12.9 mmol/L (5.0-14.0)
[2023-02-14 00:49] LABS: C-REACTIVE PROTEIN < 0.50 mg/dL (<0.50)
== END 2023-02-14 03:40 | disposition home or self-care (01) ==
LOC: JP.ED 21:19
DX: K59.00 Constipation, unspecified (principal); F17.210 Nicotine dependence, cigarettes, uncomplicated; I10 Essential (primary) hypertension; I25.10 Atherosclerotic heart disease of native coronary artery without angina pectoris; J45.909 Unspecified asthma, uncomplicated; K21.9 Gastro-esophageal reflux disease without esophagitis; E03.9 Hypothyroidism, unspecified; E66.9 Obesity, unspecified; E11.40 Type 2 diabetes mellitus with diabetic neuropathy, unspecified; Z86.16 Personal history of COVID-19; Z79.4 Long term (current) use of insulin; Z79.899 Other long term (current) drug therapy; Z79.84 Long term (current) use of oral hypoglycemic drugs; Z79.82 Long term (current) use of aspirin; Z86.73 Personal history of transient ischemic attack (TIA), and cerebral infarction without residual deficits; Z88.2 Allergy status to sulfonamides
CPT/HCPCS: 36415; 80053; 83605; 83690; 85025; 86140; 96361; 96374; 99284; A9270; J1885; J7030

== ENCOUNTER 2023-02-24 08:48 | Day surgery (SDC) | payer BC, MEDICARE ==
[2023-02-24] MEDS ORDERED: Midazolam 1 MG/ML 2 ML SDV ONE (09:42)
[2023-02-24] MEDS ORDERED: Propofol 200 MG/20 ML SDV ONE (09:42)
[2023-02-24] MEDS ORDERED: fentaNYL 100 MCG/2 ML SDV ONE (09:42)
[2023-02-24] MEDS: Lactated Ringers 1,000 ML IV SCH (09:43)
[2023-02-24 12:40] VITALS: BP 145/86; PULSE 72
== END 2023-02-24 12:43 | disposition home or self-care (01) ==
LOC: JP.SDS 08:48
PROVIDERS: ATTEND Student in an Organized Health Care Education/Training Program
DX: K29.50 Unspecified chronic gastritis without bleeding (principal); K44.9 Diaphragmatic hernia without obstruction or gangrene; K31.7 Polyp of stomach and duodenum; G47.33 Obstructive sleep apnea (adult) (pediatric); E78.5 Hyperlipidemia, unspecified; I10 Essential (primary) hypertension; J44.9 Chronic obstructive pulmonary disease, unspecified; E66.9 Obesity, unspecified; K21.9 Gastro-esophageal reflux disease without esophagitis; F17.210 Nicotine dependence, cigarettes, uncomplicated; E11.69 Type 2 diabetes mellitus with other specified complication; Z68.39 Body mass index [BMI] 39.0-39.9, adult; Z79.899 Other long term (current) drug therapy; Z88.2 Allergy status to sulfonamides
CPT/HCPCS: 43239; 88305; J2250; J2704; J3010; J7120

== ENCOUNTER 2023-04-07 08:24 | Inpatient (IN) | payer BC, MEDICARE ==
[2023-04-07 08:40] LABS: BASOPHILS ABSOLUTE AUTO 0.07 K/uL (0.00-0.10); BASOPHILS PERCENT AUTO 0.5 % (0.1-1.3); EOSINOPHILS ABSOLUTE AUTO 0.07 K/uL (0.00-0.40); EOSINOPHILS PERCENT AUTO 0.5 % (0.0-5.4); HEMATOCRIT 47.7 % (38.4-49.7); HEMOGLOBIN 16.6 g/dL (12.9-16.9); IMMATURE GRAN ABSOLUTE AUTO 0.11 K/uL (0.00-0.23); IMMATURE GRAN PERCENT AUTO 0.8 % (0.0-0.7); LYMPHOCYTES ABSOLUTE AUTO 1.44 K/uL (0.8-3.3); LYMPHOCYTES PERCENT AUTO 10.4 % (11.4-47.7); MEAN CORPUSCULAR HEMOGLOBIN 31.9 pg (31.6-35.5); MEAN CORPUSCULAR HGB CONC 34.8 g/dL (31.6-35.5); MEAN CORPUSCULAR VOLUME 91.6 fL (81.4-99.0); NEUTROPHILS ABSOLUTE AUTO 11.02 K/uL (1.0-7.6); NEUTROPHILS PERCENT AUTO 79.8 % (40.0-78.1); PLATELET COUNT,PLT 272 K/uL (130-375); RED BLOOD CELL COUNT 5.21 M/uL (4.14-5.76); WHITE BLOOD CELL COUNT,WBC 13.8 K/uL (3.2-11.0)
[2023-04-07] MEDS: Sodium Chloride 0.9% 1,000 ML IV ONE ×2 (08:44→09:50)
[2023-04-07 09:11] LABS: A/G RATIO 0.8 (1.2-2.2); ALANINE AMINOTRANSFERASE,ALT 16 U/L (12-78); ALBUMIN 3.6 g/dL (3.4-5.0); ALKALINE PHOSPHATASE 124 U/L (46-116); ASPARTATE AMNIOTRANSFERASE,AST 13 U/L (15-37); BILIRUBIN TOTAL 0.7 mg/dL (0.2-1.0); BLOOD UREA NITROGEN,BUN 22 mg/dL (7-18); CARBON DIOXIDE,CO2 26 mmol/L (21-32); CHLORIDE,CL 95 mmol/L (100-108); CREATININE 1.5 mg/dL (0.8-1.3); EST CRCL DRUG DOSING (CG) 54.38 mL/min; ESTIMATED GFR 52 mL/min (>60); POTASSIUM,K 4.8 mmol/L (3.6-5.2); PROTEIN TOTAL,TP 7.9 g/dL (6.4-8.2); SODIUM,NA 130 mmol/L (140-148); TROPONIN I HIGH SENSITIVITY 6.6 pg/mL (<=60.3)
[2023-04-07 09:12] LABS: ANION GAP 13.8 mmol/L (5.0-14.0); GLUCOSE RANDOM 439 mg/dL (74-106)
[2023-04-07 09:12] LABS: CORONAVIRUS COVID-19 NAA NEGATIVE (NEGATIVE); INFLUENZA A NAA NEGATIVE (NEGATIVE); INFLUENZA B NAA NEGATIVE (NEGATIVE); RESPIRATORY SYNCYTIAL VIR NAA NEGATIVE (NEGATIVE)
[2023-04-07] MEDS: Acetaminophen 1,000 MG in Premix Bag 1 BAG IV ONE (10:11)
[2023-04-07] MEDS: Iopamidol 612 MG/ML 100 ML Bottle IV SCH (10:41)
[2023-04-07] MEDS: Sodium Chloride 0.9% 100 ML IV SCH (10:42)
[2023-04-07] MEDS: Sodium Chloride 0.9% 10 ML Syringe FLUSH PRN (10:42)
[2023-04-07] MEDS ORDERED: Ondansetron 4 MG Tab.DIS PO PRN (11:31)
[2023-04-07] MEDS ORDERED: Temazepam 15 MG Cap PO PRN (11:31)
[2023-04-07] MEDS ORDERED: Sennosides/Docusate Sodium 50-8.6 MG Tab PO PRN (11:31)
[2023-04-07] MEDS ORDERED: Polyethylene Glycol 3350 Powder 17 GM Packet PO PRN (11:31)
[2023-04-07] MEDS ORDERED: Naloxone 0.4 MG/ML SDV IVPUSH PRN (11:31)
[2023-04-07] MEDS: Sodium Chloride 0.9% 1,000 ML IV SCH (12:10)
[2023-04-07] MEDS: Insulin Lispro 100 Unit/ML 3 ML KwikPen SUBCUT SCH (14:19)
[2023-04-07] MEDS ORDERED: Albuterol/Ipratropium 3.0-0.5 MG/3 ML Neb Soln INH PRN (14:48)
[2023-04-07] MEDS ORDERED: Fluticasone NASAL Spray 16 GM Bottle NASBOTH PRN (14:58)
[2023-04-07] MEDS: Morphine 2 MG/ML SYRINGE IVPUSH PRN (16:54)
[2023-04-07] MEDS: Aspirin 300 MG Supp RECTAL SCH (19:28)
[2023-04-07] MEDS: Metoprolol Succinate 50 MG Tab.ER PO ONE (19:35)
[2023-04-07] MEDS: Acetaminophen 325 MG Tab PO PRN (19:35)
[2023-04-07] MEDS: buPROPion 150 MG Tab.SR PO SCH (19:36)
[2023-04-08 05:46] LABS: HEMATOCRIT 43.7 % (38.4-49.7); HEMOGLOBIN 15.1 g/dL (12.9-16.9); MEAN CORPUSCULAR HEMOGLOBIN 31.6 pg (31.6-35.5); MEAN CORPUSCULAR HGB CONC 34.6 g/dL (31.6-35.5); MEAN CORPUSCULAR VOLUME 91.4 fL (81.4-99.0); RED BLOOD CELL COUNT 4.78 M/uL (4.14-5.76); WHITE BLOOD CELL COUNT,WBC 10.1 K/uL (3.2-11.0)
[2023-04-08 06:03] LABS: A/G RATIO 0.8 (1.2-2.2); ALANINE AMINOTRANSFERASE,ALT 15 U/L (12-78); ALKALINE PHOSPHATASE 91 U/L (46-116); ASPARTATE AMNIOTRANSFERASE,AST 19 U/L (15-37); BILIRUBIN TOTAL 0.8 mg/dL (0.2-1.0); BLOOD UREA NITROGEN,BUN 11 mg/dL (7-18); CALCIUM 8.4 mg/dL (8.5-10.1); CARBON DIOXIDE,CO2 28 mmol/L (21-32); CHLORIDE,CL 99 mmol/L (100-108); CREATININE 1.1 mg/dL (0.8-1.3); EST CRCL DRUG DOSING (CG) 74.16 mL/min; ESTIMATED GFR 76 mL/min (>60); GLUCOSE RANDOM 252 mg/dL (74-106); MAGNESIUM 1.5 mg/dL (1.8-2.4); PHOSPHORUS 3.1 mg/dL (2.5-4.9); POTASSIUM,K 4.3 mmol/L (3.6-5.2); PROTEIN TOTAL,TP 6.7 g/dL (6.4-8.2); SODIUM,NA 137 mmol/L (140-148)
[2023-04-08 06:16] LABS: ANION GAP 14.3 mmol/L (5.0-14.0)
[2023-04-08] MEDS: Levothyroxine 25 MCG Tab PO SCH (07:13)
[2023-04-08] MEDS: Levothyroxine 100 MCG Tab PO SCH (07:13)
[2023-04-08] MEDS ORDERED: Non-Formulary Medication 1 Each (Levothyroxine [Levothyroxine] 150 MCG Tablet) PO SCH (07:30)
[2023-04-08] MEDS: Aspirin 325 MG Tab.EC PO SCH (09:00)
[2023-04-08] MEDS: Enoxaparin 40 MG/0.4 ML Syringe SUBCUT SCH (09:01)
[2023-04-08] MEDS: Metoprolol Succinate 50 MG Tab.ER PO SCH (09:02)
[2023-04-08] MEDS: amLODIPine 5 MG Tab PO SCH (09:03)
[2023-04-08] MEDS: Magnesium Sulfate/Water 2 GM in Premix Bag 1 BAG IV ONE (09:17)
[2023-04-08] MEDS: FLU (Fluarix Quad) QS2023-24(6MOS UP)/PF 60 MCG/0.5 ML Syringe IM ONE (11:07)
[2023-04-08] MEDS: Pneumococcal 20-Valent Conjug 0.5 ML Syringe IM ONE (11:09)
[2023-04-08 17:40] LABS: OSMOLALITY 294 mOsm/kg (280-303)
[2023-04-08] MEDS: traZODone 50 MG Tab PO PRN (22:55)
[2023-04-09] MEDS: FLUoxetine 10 MG Cap PO SCH (08:24)
[2023-04-09 09:02] LABS: HEMATOCRIT 45.1 % (38.4-49.7); HEMOGLOBIN 15.8 g/dL (12.9-16.9); MEAN CORPUSCULAR HEMOGLOBIN 31.6 pg (31.6-35.5); MEAN CORPUSCULAR VOLUME 90.2 fL (81.4-99.0); WHITE BLOOD CELL COUNT,WBC 8.8 K/uL (3.2-11.0)
[2023-04-09 09:30] LABS: A/G RATIO 0.9 (1.2-2.2); ALANINE AMINOTRANSFERASE,ALT 15 U/L (12-78); ALBUMIN 3.5 g/dL (3.4-5.0); ALKALINE PHOSPHATASE 91 U/L (46-116); ASPARTATE AMNIOTRANSFERASE,AST 15 U/L (15-37); BILIRUBIN DIRECT 0.33 mg/dL (0.0-0.2); BILIRUBIN INDIRECT 0.67; BLOOD UREA NITROGEN,BUN 8 mg/dL (7-18); CALCIUM 8.7 mg/dL (8.5-10.1); CARBON DIOXIDE,CO2 26 mmol/L (21-32); CHLORIDE,CL 101 mmol/L (100-108); EST CRCL DRUG DOSING (CG) 81.58 mL/min; ESTIMATED GFR 85 mL/min (>60); GLUCOSE RANDOM 231 mg/dL (74-106); PHOSPHORUS 3.2 mg/dL (2.5-4.9); POTASSIUM,K 4.1 mmol/L (3.6-5.2); PROTEIN TOTAL,TP 7.3 g/dL (6.4-8.2); SODIUM,NA 136 mmol/L (140-148)
[2023-04-09 09:35] LABS: ANION GAP 13.1 mmol/L (5.0-14.0)
[2023-04-09] MEDS: Magnesium Sulfate/Water 2 GM in Premix Bag 1 BAG IV ONE (12:56)
[2023-04-09 18:15] VITALS: BP 126/70; PULSE 64
== END 2023-04-09 18:10 | disposition home or self-care (01) | DRG 282 ==
LOC: JP.ED 08:24 → JP.MS 11:02
PROVIDERS: ADMIT Hospitalist; ATTEND Hospitalist
DX: K85.00 Idiopathic acute pancreatitis without necrosis or infection (principal); E11.40 Type 2 diabetes mellitus with diabetic neuropathy, unspecified; R55 Syncope and collapse; E11.65 Type 2 diabetes mellitus with hyperglycemia; I25.10 Atherosclerotic heart disease of native coronary artery without angina pectoris; J45.909 Unspecified asthma, uncomplicated; K21.9 Gastro-esophageal reflux disease without esophagitis; E03.9 Hypothyroidism, unspecified; E78.00 Pure hypercholesterolemia, unspecified; I10 Essential (primary) hypertension; M19.90 Unspecified osteoarthritis, unspecified site; E66.9 Obesity, unspecified; G47.33 Obstructive sleep apnea (adult) (pediatric); F17.210 Nicotine dependence, cigarettes, uncomplicated; K59.04 Chronic idiopathic constipation; K92.89 Other specified diseases of the digestive system; I25.2 Old myocardial infarction; Z90.49 Acquired absence of other specified parts of digestive tract; Z79.4 Long term (current) use of insulin; Z98.890 Other specified postprocedural states; Z79.899 Other long term (current) drug therapy; Z79.82 Long term (current) use of aspirin; Z88.2 Allergy status to sulfonamides; Z79.51 Long term (current) use of inhaled steroids; Z79.84 Long term (current) use of oral hypoglycemic drugs; Z87.81 Personal history of (healed) traumatic fracture; Z68.37 Body mass index [BMI] 37.0-37.9, adult; Z86.16 Personal history of COVID-19; Z11.52 Encounter for screening for COVID-19
CPT/HCPCS: 0241U; 36415; 70450; 70450-26; 71045; 71045-26; 74177; 74177-26; 80053; 80069; 80076; 82009; 82800; 82947; 83605; 83690; 83735; 83880; 83930; 84100; 84145; 84484; 85025; 85027; 90677; 90686; 93005; 95992-GP; 96361; 96374; 97162-GP; 97530-GP; 99223; 99232; 99239; 99285-25; A9270-GY; J0131; J1650; J1815; J2270; J3475; J3490; J7030; Q9967

== ENCOUNTER 2023-08-09 21:16 | Emergency (ER) | payer BC, MEDICARE ==
[2023-08-09 21:37] LABS: BASOPHILS ABSOLUTE AUTO 0.07 K/uL (0.00-0.10); BASOPHILS PERCENT AUTO 0.7 % (0.1-1.3); EOSINOPHILS ABSOLUTE AUTO 0.13 K/uL (0.00-0.40); EOSINOPHILS PERCENT AUTO 1.2 % (0.0-5.4); HEMATOCRIT 47.4 % (38.4-49.7); HEMOGLOBIN 16.6 g/dL (12.9-16.9); IMMATURE GRAN ABSOLUTE AUTO 0.08 K/uL (0.00-0.23); IMMATURE GRAN PERCENT AUTO 0.8 % (0.0-0.7); LYMPHOCYTES ABSOLUTE AUTO 2.47 K/uL (0.8-3.3); LYMPHOCYTES PERCENT AUTO 23.6 % (11.4-47.7); MEAN CORPUSCULAR HEMOGLOBIN 31.7 pg (31.6-35.5); MEAN CORPUSCULAR VOLUME 90.6 fL (81.4-99.0); MONOCYTES ABSOLUTE AUTO 1.18 K/uL (0.20-0.90); MONOCYTES PERCENT AUTO 11.3 % (3.3-12.6); NEUTROPHILS ABSOLUTE AUTO 6.52 K/uL (1.0-7.6); NEUTROPHILS PERCENT AUTO 62.4 % (40.0-78.1); PLATELET COUNT,PLT 211 K/uL (130-375); RED BLOOD CELL COUNT 5.23 M/uL (4.14-5.76); WHITE BLOOD CELL COUNT,WBC 10.5 K/uL (3.2-11.0)
[2023-08-09 22:01] LABS: A/G RATIO 0.8 (1.2-2.2); ALANINE AMINOTRANSFERASE,ALT 15 U/L (12-78); ALBUMIN 3.7 g/dL (3.4-5.0); ALKALINE PHOSPHATASE 119 U/L (46-116); ASPARTATE AMNIOTRANSFERASE,AST 15 U/L (15-37); BILIRUBIN TOTAL 0.4 mg/dL (0.2-1.0); BLOOD UREA NITROGEN,BUN 27 mg/dL (7-18); CALCIUM 9.2 mg/dL (8.5-10.1); CARBON DIOXIDE,CO2 26 mmol/L (21-32); CHLORIDE,CL 100 mmol/L (100-108); CREATININE 1.4 mg/dL (0.8-1.3); ESTIMATED GFR 57 mL/min (>60); GLUCOSE RANDOM 230 mg/dL (74-106); POTASSIUM,K 4.4 mmol/L (3.6-5.2); PROTEIN TOTAL,TP 8.1 g/dL (6.4-8.2); SODIUM,NA 136 mmol/L (140-148)
[2023-08-09 22:02] LABS: ANION GAP 14.4 mmol/L (5.0-14.0)
[2023-08-09 22:20] LABS: AMPHETAMINES SCREEN, URINE NEGATIVE (NEGATIVE); BARBITURATE SCREEN,URINE NEGATIVE (NEGATIVE); BENZODIAZEPINES SCREEN,URINE NEGATIVE (NEGATIVE); METHADONE SCREEN, URINE NEGATIVE (NEGATIVE); METHAMPHETAMINES SCREEN, URINE NEGATIVE (NEGATIVE); OXYCODONE SCREEN,URINE NEGATIVE (NEGATIVE); PROPOXYPHENE SCREEN,URINE NEGATIVE (NEGATIVE); THC SCREEN,URINE 50 NG/ML NEGATIVE (NEGATIVE)
[2023-08-09] MEDS: Rocuronium 50 MG/5 ML Vial IVPUSH ONE (22:23)
[2023-08-09] MEDS: Propofol 200 MG/20 ML SDV IVPUSH ONE (22:23)
[2023-08-09] MEDS: Succinylcholine 200 MG/10 ML MDV IV ONE (22:23)
[2023-08-09] MEDS: propofoL 100 ML IV SCH (22:42)
[2023-08-10 00:12] VITALS: BP 74/44; PULSE 74
[2023-08-10] MEDS: Propofol 200 MG/20 ML SDV ONE (00:45)
[2023-08-10] MEDS: propofoL 100 ML ONE (00:45)
[2023-08-10] MEDS: Succinylcholine 200 MG/10 ML MDV ONE (00:46)
== END 2023-08-09 23:55 ==
LOC: JP.ED 21:16
DX: R41.82 Altered mental status, unspecified (principal); I10 Essential (primary) hypertension; I25.2 Old myocardial infarction; I25.10 Atherosclerotic heart disease of native coronary artery without angina pectoris; J45.909 Unspecified asthma, uncomplicated; E78.00 Pure hypercholesterolemia, unspecified; E66.9 Obesity, unspecified; E11.9 Type 2 diabetes mellitus without complications; E03.9 Hypothyroidism, unspecified; Z88.2 Allergy status to sulfonamides; Z79.4 Long term (current) use of insulin; Z79.84 Long term (current) use of oral hypoglycemic drugs; Z79.890 Hormone replacement therapy; Z79.899 Other long term (current) drug therapy; Z90.49 Acquired absence of other specified parts of digestive tract; Z86.16 Personal history of COVID-19; Z68.37 Body mass index [BMI] 37.0-37.9, adult
CPT/HCPCS: 31500; 36415; 43752; 51702; 70450; 71045; 71045-26; 80053; 80305-QW; 80307; 84443; 84484; 85025; 93005; 93010; 96365; 99285; 99285-25; J0330; J2704; J3490

== ENCOUNTER 2023-08-18 01:37 | Emergency (ER) | payer BC, MEDICARE ==
[2023-08-18 01:52] VITALS: PULSE 82
[2023-08-18 02:24] LABS: BASOPHILS ABSOLUTE AUTO 0.06 K/uL (0.00-0.10); BASOPHILS PERCENT AUTO 0.6 % (0.1-1.3); EOSINOPHILS ABSOLUTE AUTO 0.18 K/uL (0.00-0.40); EOSINOPHILS PERCENT AUTO 1.8 % (0.0-5.4); HEMATOCRIT 42.3 % (38.4-49.7); HEMOGLOBIN 14.7 g/dL (12.9-16.9); IMMATURE GRAN ABSOLUTE AUTO 0.08 K/uL (0.00-0.23); IMMATURE GRAN PERCENT AUTO 0.8 % (0.0-0.7); LYMPHOCYTES ABSOLUTE AUTO 1.92 K/uL (0.8-3.3); LYMPHOCYTES PERCENT AUTO 19.6 % (11.4-47.7); MEAN CORPUSCULAR HEMOGLOBIN 31.2 pg (31.6-35.5); MEAN CORPUSCULAR HGB CONC 34.8 g/dL (31.6-35.5); MEAN CORPUSCULAR VOLUME 89.8 fL (81.4-99.0); MONOCYTES ABSOLUTE AUTO 1.15 K/uL (0.20-0.90); MONOCYTES PERCENT AUTO 11.7 % (3.3-12.6); NEUTROPHILS ABSOLUTE AUTO 6.41 K/uL (1.0-7.6); NEUTROPHILS PERCENT AUTO 65.5 % (40.0-78.1); PLATELET COUNT,PLT 243 K/uL (130-375); RED BLOOD CELL COUNT 4.71 M/uL (4.14-5.76); WHITE BLOOD CELL COUNT,WBC 9.8 K/uL (3.2-11.0)
[2023-08-18 02:48] LABS: ANION GAP 11.1 mmol/L (5.0-14.0); C-REACTIVE PROTEIN 1.56 mg/dL (<0.50); CALCIUM 8.5 mg/dL (8.5-10.1); CREATININE 1.1 mg/dL (0.8-1.3); EST CRCL DRUG DOSING (CG) 74.16 mL/min; POTASSIUM,K 4.1 mmol/L (3.6-5.2); TROPONIN I HIGH SENSITIVITY 6.6 pg/mL (<=60.3)
[2023-08-18 03:48] VITALS: BP 124/74
== END 2023-08-18 03:47 | disposition home or self-care (01) ==
LOC: JP.ED 01:37
DX: J02.9 Acute pharyngitis, unspecified (principal); I10 Essential (primary) hypertension; I25.10 Atherosclerotic heart disease of native coronary artery without angina pectoris; I25.2 Old myocardial infarction; E78.00 Pure hypercholesterolemia, unspecified; E11.40 Type 2 diabetes mellitus with diabetic neuropathy, unspecified; E03.9 Hypothyroidism, unspecified; E66.9 Obesity, unspecified; Z86.16 Personal history of COVID-19; Z90.49 Acquired absence of other specified parts of digestive tract; Z87.891 Personal history of nicotine dependence; Z79.82 Long term (current) use of aspirin; Z79.899 Other long term (current) drug therapy; Z79.890 Hormone replacement therapy; Z79.4 Long term (current) use of insulin; Z88.2 Allergy status to sulfonamides; Z68.36 Body mass index [BMI] 36.0-36.9, adult
CPT/HCPCS: 36415; 71045; 71045-26; 80048; 84484; 85025; 86140; 87651-QW; 93005; 99285

== ENCOUNTER 2024-01-29 05:20 | Emergency (ER) | payer BC, MEDICARE ==
[2024-01-29 05:52] LABS: BASOPHILS ABSOLUTE AUTO 0.07 K/uL (0.00-0.10); BASOPHILS PERCENT AUTO 0.6 % (0.1-1.3); EOSINOPHILS ABSOLUTE AUTO 0.13 K/uL (0.00-0.40); EOSINOPHILS PERCENT AUTO 1.2 % (0.0-5.4); HEMATOCRIT 42.7 % (38.4-49.7); HEMOGLOBIN 15.1 g/dL (12.9-16.9); IMMATURE GRAN ABSOLUTE AUTO 0.06 K/uL (0.00-0.23); IMMATURE GRAN PERCENT AUTO 0.5 % (0.0-0.7); LYMPHOCYTES ABSOLUTE AUTO 2.29 K/uL (0.8-3.3); MEAN CORPUSCULAR HEMOGLOBIN 31.4 pg (31.6-35.5); MEAN CORPUSCULAR HGB CONC 35.4 g/dL (31.6-35.5); MEAN CORPUSCULAR VOLUME 88.8 fL (81.4-99.0); MONOCYTES ABSOLUTE AUTO 1.08 K/uL (0.20-0.90); MONOCYTES PERCENT AUTO 9.9 % (3.3-12.6); NEUTROPHILS ABSOLUTE AUTO 7.29 K/uL (1.0-7.6); NEUTROPHILS PERCENT AUTO 66.8 % (40.0-78.1); PLATELET COUNT,PLT 249 K/uL (130-375); RED BLOOD CELL COUNT 4.81 M/uL (4.14-5.76); WHITE BLOOD CELL COUNT,WBC 10.9 K/uL (3.2-11.0)
[2024-01-29 06:10] LABS: PROTHROMBIN TIME 10.2 sec (9.2-10.6)
[2024-01-29 06:18] LABS: BLOOD UREA NITROGEN,BUN 17 mg/dL (7-18); CALCIUM 8.4 mg/dL (8.5-10.1); CARBON DIOXIDE,CO2 29 mmol/L (21-32); CHLORIDE,CL 97 mmol/L (100-108); CREATININE 1.3 mg/dL (0.8-1.3); ESTIMATED GFR 62 mL/min (>60); GLUCOSE RANDOM 210 mg/dL (74-106); POTASSIUM,K 3.6 mmol/L (3.6-5.2); SODIUM,NA 135 mmol/L (140-148)
[2024-01-29 06:19] LABS: ANION GAP 12.6 mmol/L (5.0-14.0)
[2024-01-29] MEDS: Iopamidol 755 Mg/ML 100 ML Bottle IV SCH (06:43)
[2024-01-29] MEDS: Sodium Chloride 0.9% 100 ML IV SCH (06:43)
[2024-01-29] MEDS: Alum Hydrox/Mag Hydrox/Simeth 15 ML, Lidocaine 2% 15 ML PO ONE (06:49)
[2024-01-29 07:05] VITALS: BP 126/78; PULSE 72
[2024-01-29] MEDS: Clopidogrel 75 MG Tab PO ONE (07:56)
== END 2024-01-29 08:07 | disposition home or self-care (01) ==
LOC: JP.ED 05:20
DX: R20.0 Anesthesia of skin (principal); R20.2 Paresthesia of skin; I10 Essential (primary) hypertension; E78.00 Pure hypercholesterolemia, unspecified; I25.10 Atherosclerotic heart disease of native coronary artery without angina pectoris; J45.909 Unspecified asthma, uncomplicated; K21.9 Gastro-esophageal reflux disease without esophagitis; E11.9 Type 2 diabetes mellitus without complications; E03.9 Hypothyroidism, unspecified; E66.9 Obesity, unspecified; Z86.16 Personal history of COVID-19; Z90.49 Acquired absence of other specified parts of digestive tract; Z79.899 Other long term (current) drug therapy; Z79.890 Hormone replacement therapy; Z79.4 Long term (current) use of insulin; Z79.82 Long term (current) use of aspirin; Z88.2 Allergy status to sulfonamides
CPT/HCPCS: 36415; 70450; 70496; 70498; 71045; 80048; 82947; 84484; 85025; 85379; 85610; 93005; 99285; A9270; J3490; Q9967

== ENCOUNTER 2024-02-10 22:01 | Inpatient (IN) | payer BC, MEDICARE ==
[2024-02-10 22:46] LABS: BASOPHILS ABSOLUTE AUTO 0.09 K/uL (0.00-0.10); BASOPHILS PERCENT AUTO 0.6 % (0.1-1.3); EOSINOPHILS ABSOLUTE AUTO 0.23 K/uL (0.00-0.40); EOSINOPHILS PERCENT AUTO 1.6 % (0.0-5.4); HEMATOCRIT 47.8 % (38.4-49.7); IMMATURE GRAN ABSOLUTE AUTO 0.08 K/uL (0.00-0.23); IMMATURE GRAN PERCENT AUTO 0.6 % (0.0-0.7); LYMPHOCYTES ABSOLUTE AUTO 2.25 K/uL (0.8-3.3); LYMPHOCYTES PERCENT AUTO 15.8 % (11.4-47.7); MEAN CORPUSCULAR HEMOGLOBIN 31.7 pg (31.6-35.5); MEAN CORPUSCULAR HGB CONC 35.6 g/dL (31.6-35.5); MONOCYTES ABSOLUTE AUTO 1.12 K/uL (0.20-0.90); MONOCYTES PERCENT AUTO 7.9 % (3.3-12.6); NEUTROPHILS ABSOLUTE AUTO 10.43 K/uL (1.0-7.6); NEUTROPHILS PERCENT AUTO 73.5 % (40.0-78.1); PLATELET COUNT,PLT 281 K/uL (130-375); RED BLOOD CELL COUNT 5.37 M/uL (4.14-5.76); WHITE BLOOD CELL COUNT,WBC 14.2 K/uL (3.2-11.0)
[2024-02-10 23:29] LABS: ALANINE AMINOTRANSFERASE,ALT 13 U/L (12-78); ALKALINE PHOSPHATASE 133 U/L (46-116); ASPARTATE AMNIOTRANSFERASE,AST 15 U/L (15-37); BILIRUBIN TOTAL 0.6 mg/dL (0.2-1.0); BLOOD UREA NITROGEN,BUN 14 mg/dL (7-18); CALCIUM 8.6 mg/dL (8.5-10.1); CARBON DIOXIDE,CO2 29 mmol/L (21-32); CHLORIDE,CL 97 mmol/L (100-108); CREATININE 1.1 mg/dL (0.8-1.3); EST CRCL DRUG DOSING (CG) 70.97 mL/min; ESTIMATED GFR 75 mL/min (>60); GLUCOSE RANDOM 183 mg/dL (74-106); POTASSIUM,K 3.9 mmol/L (3.6-5.2); PROTEIN TOTAL,TP 8.1 g/dL (6.4-8.2); SODIUM,NA 135 mmol/L (140-148); TROPONIN I HIGH SENSITIVITY 4.7 pg/mL (<=60.3)
[2024-02-10 23:30] LABS: ANION GAP 12.9 mmol/L (5.0-14.0)
[2024-02-10] MEDS: Sodium Chloride 0.9% 1,000 ML IV SCH (23:52)
[2024-02-10] MEDS: HYDROmorphone 0.5 MG/0.5 ML Syringe IVPUSH ONE (23:52)
[2024-02-11 00:49] LABS: APPEARANCE,URINE CLEAR (CLEAR); BILIRUBIN,URINE NEGATIVE (NEGATIVE); COLOR,URINE YELLOW (YELLOW); GLUCOSE,URINE NEGATIVE (NEGATIVE); KETONES,URINE NEGATIVE (NEGATIVE); LEUKOCYTE ESTERASE,URINE NEGATIVE (NEGATIVE); NITRITE,URINE NEGATIVE (NEGATIVE); OCCULT BLOOD,URINE NEGATIVE (NEGATIVE); PROTEIN,URINE NEGATIVE (NEGATIVE)
[2024-02-11] MEDS: Sodium Chloride 0.9% 80 ML IV STA (00:49)
[2024-02-11] MEDS: Iopamidol 612 MG/ML 500 ML Multipack Bottle IV STA (00:49)
[2024-02-11 01:02] LABS: AMORPHOUS SEDIMENT,URINE NOT SEEN; BACTERIA,URINE FEW; EPITHELIAL CELLS,URINE FEW; MUCUS,URINE NOT SEEN; RBC,URINE 0-5 (0-5); WBC,URINE 0-5 (0-5)
[2024-02-11 01:03] LABS: AMPHETAMINES SCREEN, URINE NEGATIVE (NEGATIVE); BARBITURATE SCREEN,URINE NEGATIVE (NEGATIVE); BENZODIAZEPINES SCREEN,URINE NEGATIVE (NEGATIVE); METHADONE SCREEN, URINE NEGATIVE (NEGATIVE); METHAMPHETAMINES SCREEN, URINE NEGATIVE (NEGATIVE); OXYCODONE SCREEN,URINE NEGATIVE (NEGATIVE); PROPOXYPHENE SCREEN,URINE NEGATIVE (NEGATIVE); THC SCREEN,URINE 50 NG/ML NEGATIVE (NEGATIVE)
[2024-02-11] MEDS ORDERED: Sennosides/Docusate Sodium 50-8.6 MG Tab PO PRN (02:13)
[2024-02-11] MEDS ORDERED: Ondansetron 4 MG Tab.DIS PO PRN (02:13)
[2024-02-11] MEDS ORDERED: Nicotine 21 MG/24 Hr Patch TRDERM PRN (02:13)
[2024-02-11] MEDS ORDERED: Ondansetron 4 MG/2 ML SDV IV PRN (02:13)
[2024-02-11] MEDS: HYDROmorphone 0.5 MG/0.5 ML Syringe IVPUSH PRN (03:02)
[2024-02-11] MEDS: HYDROmorphone 0.5 MG/0.5 ML Syringe IM ONE (03:29)
[2024-02-11] MEDS: Sodium Chloride 0.9% 1,000 ML IV SCH ×2 (04:43→11:26)
[2024-02-11 05:57] LABS: HEMATOCRIT 43.8 % (38.4-49.7); HEMOGLOBIN 15.2 g/dL (12.9-16.9); MEAN CORPUSCULAR HEMOGLOBIN 31.1 pg (31.6-35.5); MEAN CORPUSCULAR HGB CONC 34.7 g/dL (31.6-35.5); MEAN CORPUSCULAR VOLUME 89.8 fL (81.4-99.0); RED BLOOD CELL COUNT 4.88 M/uL (4.14-5.76); WHITE BLOOD CELL COUNT,WBC 9.6 K/uL (3.2-11.0)
[2024-02-11 06:18] LABS: CALCIUM 7.9 mg/dL (8.5-10.1); CREATININE 0.9 mg/dL (0.8-1.3); EST CRCL DRUG DOSING (CG) 86.74 mL/min; POTASSIUM,K 3.6 mmol/L (3.6-5.2)
[2024-02-11 06:19] LABS: ANION GAP 12.6 mmol/L (5.0-14.0)
[2024-02-11] MEDS: Insulin Lispro 100 Unit/ML 3 ML KwikPen SUBCUT SCH (08:08)
[2024-02-11] MEDS: oxyCODONE 5 MG Tab PO PRN (11:29)
[2024-02-12 05:18] LABS: A/G RATIO 0.9 (1.2-2.2); ALANINE AMINOTRANSFERASE,ALT 15 U/L (12-78); ALBUMIN 3.3 g/dL (3.4-5.0); ALKALINE PHOSPHATASE 102 U/L (46-116); ASPARTATE AMNIOTRANSFERASE,AST 16 U/L (15-37); BILIRUBIN TOTAL 0.9 mg/dL (0.2-1.0); BLOOD UREA NITROGEN,BUN 9 mg/dL (7-18); CALCIUM 8.8 mg/dL (8.5-10.1); CARBON DIOXIDE,CO2 29 mmol/L (21-32); CHLORIDE,CL 101 mmol/L (100-108); EST CRCL DRUG DOSING (CG) 78.07 mL/min; ESTIMATED GFR 85 mL/min (>60); GLUCOSE RANDOM 131 mg/dL (74-106); POTASSIUM,K 3.9 mmol/L (3.6-5.2); PROTEIN TOTAL,TP 6.8 g/dL (6.4-8.2); SODIUM,NA 136 mmol/L (140-148)
[2024-02-12 05:20] LABS: ANION GAP 9.9 mmol/L (5.0-14.0)
[2024-02-12] MEDS ORDERED: hydrOXYzine HCl 10 MG Tab PO PRN (08:13)
[2024-02-12] MEDS ORDERED: Non-Formulary Medication 1 Each (Escitalopram [Lexapro] 20 MG Tablet) PO SCH (09:00)
[2024-02-12] MEDS: Escitalopram 10 MG Tab PO SCH (09:20)
[2024-02-12] MEDS: Levothyroxine 25 MCG Tab PO SCH (09:20)
[2024-02-12] MEDS: Aspirin 325 MG Tab.EC PO SCH (09:20)
[2024-02-12] MEDS: Levothyroxine 100 MCG Tab PO SCH (09:20)
[2024-02-12] MEDS: amLODIPine 5 MG Tab PO SCH (09:21)
[2024-02-12] MEDS: Metoprolol Succinate 25 MG Tab.ER PO SCH (09:22)
[2024-02-12] MEDS: Clopidogrel 75 MG Tab PO SCH (09:22)
[2024-02-12] MEDS: Acetaminophen/HYDROcodone 325-5 MG Tab PO PRN (10:38)
[2024-02-12] MEDS: Melatonin 3 MG Tab PO PRN (21:03)
[2024-02-13] MEDS: Acetaminophen 325 MG Tab PO PRN (07:25)
[2024-02-13 08:21] VITALS: BP 122/67; PULSE 83
== END 2024-02-13 10:30 | disposition home or self-care (01) | DRG 282 ==
LOC: JP.ED 22:01 → JP.MS 02-11 01:46
PROVIDERS: ADMIT Registered Nurse; ATTEND Internal Medicine
DX: K85.00 Idiopathic acute pancreatitis without necrosis or infection (principal); E11.40 Type 2 diabetes mellitus with diabetic neuropathy, unspecified; I25.10 Atherosclerotic heart disease of native coronary artery without angina pectoris; H54.7 Unspecified visual loss; J32.9 Chronic sinusitis, unspecified; J45.909 Unspecified asthma, uncomplicated; E78.00 Pure hypercholesterolemia, unspecified; I10 Essential (primary) hypertension; E87.1 Hypo-osmolality and hyponatremia; K21.9 Gastro-esophageal reflux disease without esophagitis; M19.90 Unspecified osteoarthritis, unspecified site; E66.9 Obesity, unspecified; E03.9 Hypothyroidism, unspecified; F17.210 Nicotine dependence, cigarettes, uncomplicated; G47.33 Obstructive sleep apnea (adult) (pediatric); F41.8 Other specified anxiety disorders; Z86.16 Personal history of COVID-19; Z68.36 Body mass index [BMI] 36.0-36.9, adult; Z88.1 Allergy status to other antibiotic agents; Z88.2 Allergy status to sulfonamides; Z79.82 Long term (current) use of aspirin; Z79.84 Long term (current) use of oral hypoglycemic drugs; Z79.4 Long term (current) use of insulin; Z79.899 Other long term (current) drug therapy; Z79.1 Long term (current) use of non-steroidal anti-inflammatories (NSAID); Z79.02 Long term (current) use of antithrombotics/antiplatelets; I25.2 Old myocardial infarction; Z90.89 Acquired absence of other organs; Z90.49 Acquired absence of other specified parts of digestive tract; Z98.890 Other specified postprocedural states; Z71.6 Tobacco abuse counseling
CPT/HCPCS: 36415; 71045; 74177; 80048; 80053; 80305-QW; 80307; 81001; 82150; 82947; 83690; 84443; 84484; 85025; 85027; 87428-QW; 93005; 99222; 99232; 99238; A9270-GY; J1815; J7030; Q9967

== ENCOUNTER 2024-04-05 21:30 | Emergency (ER) | payer BC, MEDICARE ==
[2024-04-05 21:54] LABS: BASOPHILS ABSOLUTE AUTO 0.07 K/uL (0.00-0.10); BASOPHILS PERCENT AUTO 0.8 % (0.1-1.3); EOSINOPHILS ABSOLUTE AUTO 0.12 K/uL (0.00-0.40); EOSINOPHILS PERCENT AUTO 1.3 % (0.0-5.4); HEMATOCRIT 48.9 % (38.4-49.7); HEMOGLOBIN 16.6 g/dL (12.9-16.9); IMMATURE GRAN ABSOLUTE AUTO 0.05 K/uL (0.00-0.23); IMMATURE GRAN PERCENT AUTO 0.6 % (0.0-0.7); LYMPHOCYTES ABSOLUTE AUTO 2.38 K/uL (0.8-3.3); LYMPHOCYTES PERCENT AUTO 26.4 % (11.4-47.7); MEAN CORPUSCULAR HEMOGLOBIN 31.4 pg (31.6-35.5); MEAN CORPUSCULAR HGB CONC 33.9 g/dL (31.6-35.5); MEAN CORPUSCULAR VOLUME 92.6 fL (81.4-99.0); MONOCYTES ABSOLUTE AUTO 0.97 K/uL (0.20-0.90); MONOCYTES PERCENT AUTO 10.8 % (3.3-12.6); NEUTROPHILS ABSOLUTE AUTO 5.41 K/uL (1.0-7.6); NEUTROPHILS PERCENT AUTO 60.1 % (40.0-78.1); PLATELET COUNT,PLT 236 K/uL (130-375); RED BLOOD CELL COUNT 5.28 M/uL (4.14-5.76)
[2024-04-05 22:03] VITALS: PULSE 70
[2024-04-05 22:04] VITALS: BP 144/93
[2024-04-05 22:16] LABS: A/G RATIO 1.2 (1.2-2.2); ALANINE AMINOTRANSFERASE,ALT 14 U/L (12-78); ALBUMIN 4.3 g/dL (3.4-5.0); ALKALINE PHOSPHATASE 132 U/L (46-116); ANION GAP 11.4 mmol/L (5.0-14.0); ASPARTATE AMNIOTRANSFERASE,AST 17 U/L (15-37); BILIRUBIN TOTAL 0.6 mg/dL (0.2-1.0); BLOOD UREA NITROGEN,BUN 15 mg/dL (7-18); CALCIUM 8.8 mg/dL (8.5-10.1); CARBON DIOXIDE,CO2 29 mmol/L (21-32); CHLORIDE,CL 99 mmol/L (100-108); CREATININE 1.2 mg/dL (0.8-1.3); ESTIMATED GFR 68 mL/min (>60); GLUCOSE RANDOM 194 mg/dL (74-106); POTASSIUM,K 4.4 mmol/L (3.6-5.2); SODIUM,NA 135 mmol/L (140-148)
[2024-04-05 22:43] LABS: AMPHETAMINES SCREEN, URINE NEGATIVE (NEGATIVE); BARBITURATE SCREEN,URINE NEGATIVE (NEGATIVE); BENZODIAZEPINES SCREEN,URINE NEGATIVE (NEGATIVE); METHAMPHETAMINES SCREEN, URINE NEGATIVE (NEGATIVE)
[2024-04-05 22:44] LABS: METHADONE SCREEN, URINE NEGATIVE (NEGATIVE); OXYCODONE SCREEN,URINE NEGATIVE (NEGATIVE); PROPOXYPHENE SCREEN,URINE NEGATIVE (NEGATIVE); THC SCREEN,URINE 50 NG/ML NEGATIVE (NEGATIVE)
[2024-04-05] MEDS: Sodium Chloride 0.9% 1,000 ML IV SCH (23:07)
== END 2024-04-06 00:16 | disposition home or self-care (01) ==
LOC: JP.ED 21:30
DX: E86.0 Dehydration (principal); I10 Essential (primary) hypertension; E78.00 Pure hypercholesterolemia, unspecified; I25.2 Old myocardial infarction; E11.9 Type 2 diabetes mellitus without complications; E03.9 Hypothyroidism, unspecified; Z90.49 Acquired absence of other specified parts of digestive tract; Z88.2 Allergy status to sulfonamides; Z88.0 Allergy status to penicillin; Z88.8 Allergy status to other drugs, medicaments and biological substances; Z79.4 Long term (current) use of insulin; Z79.82 Long term (current) use of aspirin; Z79.02 Long term (current) use of antithrombotics/antiplatelets; Z79.899 Other long term (current) drug therapy
CPT/HCPCS: 36415; 70450; 80053; 80305-QW; 80307; 84484; 85025; 87428-QW; 93005; 96360; 99284-25

== ENCOUNTER 2025-01-21 18:17 | Emergency (ER) | payer BC, MEDICARE ==
[2025-01-21 18:33] VITALS: BP 169/103; PULSE 89
[2025-01-21 18:47] LABS: BASOPHILS ABSOLUTE AUTO 0.09 K/uL (0.00-0.10); BASOPHILS PERCENT AUTO 0.7 % (0.1-1.3); EOSINOPHILS ABSOLUTE AUTO 0.19 K/uL (0.00-0.40); EOSINOPHILS PERCENT AUTO 1.5 % (0.0-5.4); IMMATURE GRAN ABSOLUTE AUTO 0.11 K/uL (0.00-0.23); IMMATURE GRAN PERCENT AUTO 0.8 % (0.0-0.7); LYMPHOCYTES ABSOLUTE AUTO 2.71 K/uL (0.8-3.3); LYMPHOCYTES PERCENT AUTO 20.9 % (11.4-47.7); MONOCYTES ABSOLUTE AUTO 1.00 K/uL (0.20-0.90); MONOCYTES PERCENT AUTO 7.7 % (3.3-12.6); NEUTROPHILS ABSOLUTE AUTO 8.85 K/uL (1.0-7.6); NEUTROPHILS PERCENT AUTO 68.4 % (40.0-78.1); PLATELET COUNT,PLT 251 K/uL (130-375); RED BLOOD CELL COUNT 5.19 M/uL (4.14-5.76); WHITE BLOOD CELL COUNT,WBC 13.0 K/uL (3.2-11.0)
[2025-01-21 19:21] LABS: A/G RATIO 1.0 (1.2-2.2); ALANINE AMINOTRANSFERASE,ALT 31 U/L (12-78); BILIRUBIN TOTAL 0.5 mg/dL (0.2-1.0); BLOOD UREA NITROGEN,BUN 18 mg/dL (7-18); CARBON DIOXIDE,CO2 30 mmol/L (21-32); CHLORIDE,CL 98 mmol/L (100-108); CREATININE 1.2 mg/dL (0.8-1.3); ESTIMATED GFR 68 mL/min (>60); GLUCOSE RANDOM 331 mg/dL (74-106); POTASSIUM,K 4.5 mmol/L (3.6-5.2); PROTEIN TOTAL,TP 7.4 g/dL (6.4-8.2); SODIUM,NA 134 mmol/L (140-148)
[2025-01-21] MEDS ORDERED: 50% Dextrose in Water 50 ML Syringe IVPUSH PRN (19:29)
[2025-01-21 19:36] LABS: ASPARTATE AMNIOTRANSFERASE,AST 25 U/L (15-37)
[2025-01-21] MEDS: Insulin Glargine,Human Rec. Analog 100 Units/ML 3 ML Pen SUBCUT SCH (19:42)
== END 2025-01-21 19:57 | disposition home or self-care (01) ==
LOC: JP.ED 18:17
DX: E11.9 Type 2 diabetes mellitus without complications (principal); F17.200 Nicotine dependence, unspecified, uncomplicated; E66.9 Obesity, unspecified; E03.9 Hypothyroidism, unspecified; K21.9 Gastro-esophageal reflux disease without esophagitis; M19.90 Unspecified osteoarthritis, unspecified site; E78.00 Pure hypercholesterolemia, unspecified; I10 Essential (primary) hypertension; Z79.4 Long term (current) use of insulin; Z79.899 Other long term (current) drug therapy; Z79.01 Long term (current) use of anticoagulants; Z86.16 Personal history of COVID-19; Z90.89 Acquired absence of other organs; Z90.49 Acquired absence of other specified parts of digestive tract; Z79.82 Long term (current) use of aspirin; Z79.890 Hormone replacement therapy; Z88.2 Allergy status to sulfonamides; Z88.0 Allergy status to penicillin; Z88.8 Allergy status to other drugs, medicaments and biological substances
CPT/HCPCS: 36415; 80053; 82009; 85025; 99283; J1815